=== PATIENT | female | born 1945 | race Caucasian/White ===

== ENCOUNTER 2024-06-05 12:30 | Emergency (ER) | payer OTHER, SELFPAY ==
[2024-06-05 12:35] VITALS: BP 107/76
[2024-06-05 12:48] VITALS: BP 107/76
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
[2024-06-05 13:42] LABS: Glucose - Point of Care 98 mg/dl (70-99)
[2024-06-05] MEDS: TYLENOL 1000 MG PO ×2 (14:22→19:07)
[2024-06-05 19:10] VITALS: BP 127/69
== END 2024-06-05 20:27 | disposition home or self-care (01) ==
LOC: EMR 12:30
PROVIDERS: EMERGENCY PHYSICIAN Emergency Medicine; FAMILY PHYSICIAN Internal Medicine
DX: S09.90XA Unspecified injury of head, initial encounter (principal); W22.03XA Walked into furniture, initial encounter; I48.91 Unspecified atrial fibrillation; I10 Essential (primary) hypertension; E11.9 Type 2 diabetes mellitus without complications; J44.9 Chronic obstructive pulmonary disease, unspecified; Z74.01 Bed confinement status; Z79.01 Long term (current) use of anticoagulants; Z99.81 Dependence on supplemental oxygen
CPT/HCPCS: 99284; 70450; 72125; 82962

== ENCOUNTER 2024-07-20 11:50 | Inpatient (IN) | payer MEDICARE, OTHER, SELFPAY ==
[2024-07-20] VITALS (22 sets, daily range): BP systolic 110–174; BP diastolic 49–98; PULSE 2–108
[2024-07-20 06:17] LABS: Glucose - Point of Care 179 mg/dl (70-99)
[2024-07-20 06:31] LABS: % Basophils 0.6 % (0-2); % Eosinophils 1.6 % (0-6); % Immature Granulocytes 0.4 % (0-0.5); % Lymphocytes 17.6 % (20.5-51.1); % Monocytes 7.8 % (1.7-9.3); Absolute Basophils 0.1 10^3/uL (0-0.2); Absolute Eosinophils 0.2 10^3/uL (0-0.7); Absolute Immature Granulocytes 0.1 10^3/uL (0-0.05); Absolute Monocytes 0.9 10^3/uL (0.1-0.6); Absolute Neutrophils 8.2 10^3/uL (1.4-6.5); Hematocrit 41.2 % (37.0-47.0); Hemoglobin 12.9 g/dL (12.0-16.0); Mean Corp Hgb Conc. 31.3 g/dL (33.0-37.0); Mean Corpuscular Hgb 31.2 pg (27.0-31.0); Mean Corpuscular Volume 99.8 fL (81.0-99.0); Mean Platelet Volume 9.6 fL (7.4-10.4); Nucleated Red Blood Cells % 0 %; Platelet Count 201 10^3/uL (130-400); Red Blood Cell Count 4.13 10^6/uL (4.20-5.40); Red Cell Dist. Width 13.2 % (11.5-14.5); White Blood Cell Count 11.4 10^3/uL (4.8-10.8)
--- NOTE | 2024-07-20 06:48 | ED.GENMED ---
History of Present Illness
General
Chief Complaint: Unresponsive
Source: ambulance crew and group home records
Exam Limitations: altered mental status
Time Seen by Provider: 07/20/24 06:16
Nursing documentation reviewed up to this point in time: agreed with
History of Present Illness
History of Present Illness:
78-year-old female presents emergency department from [facility] due to being unresponsive. Her last known normal is not known. EMS states the group home found her unresponsive this morning. She is on 2 L nasal cannula
chronically.
Past History
Past History
ED Past Medical History: Arrthythmia, CHF, COPD and GERD
ED Past Surgical History: Appendectomy, Gynecological (Hysterectomy) and Orthopedic (Right hip replacement)
Social History
Living: group home
Review of Systems
Review of Systems
Allergies reviewed?: Yes
Unable to obtain full review of systems at this time due to: other (Altered mental status)
Other source history: ambulance crew
All Other Systems: Not applicable
Respiratory: Reports trouble breathing
Phy Exam
Physical Exam
Physical Exam:
Physical Exam
General: Moderate respiratory distress, afebrile
Neck: supple. no meningeal signs. normal posterior pharynx
Heart: s1/s2 regular rate and irregular rhythm, no murmur. equal radial
pulses.
HEENT: Pupils equal round reactive to light, EOMI
Lungs: Moderate respiratory distress. clear bilaterally
Abdomen: normal bowel sounds. not tender. no CVAT
Neuro: arousable to painful stimuli. no focal neurological deficits cranial nerves II through XII intact
Skin: no rash
Psychiatric: Unresponsive
Extremities: no edema. no calf tenderness. negative homans. good distal pulses
Course
Orders/Labs/Results
Orders:
Orders
07/20/24 06:22
Complete Blood Count/With Diff Urgent
07/20/24 06:44
Straight cath- Treatment ONCE
07/20/24 06:45
CT Head W/o Iv Contrast Urgent
Comment:
Reason For Exam: Altered mental status
CR Chest Portable - 1 View Urgent
Comment:
Reason For Exam: Short of breath
Reason Study Needs to be Portable: Unable to Transport
07/20/24 06:46
Cardiac Monitoring- Treatment ONCE
IV Insert/Care/Rem.- Treatment PRN
07/20/24 06:50
Electrocardiogram (*1) Urgent
Reason for Study: Tachycardia
07/20/24 06:51
EKG- Treatment ONCE
07/20/24 07:12
Bipap [RESP] Urgent
Patient to use own unit?: No
Inspiratory Pressure (cm H2O): 10
Expiratory Pressure (cm H2O): 5
07/20/24 07:54
Comprehensive Metabolic Panel Urgent
NT-proBNP Urgent
Troponin I Urgent
Urinalysis Reflex To Culture Urgent
Date Specimen was Collected: 07/20/24
Time Specimen was Collected: 07:41
07/20/24 09:26
Cefepime HCl [Maxipime] 2,000 mg IV NOW STA
07/20/24 09:59
Vancomycin [Vancocin] 2,000 mg 0.9% Sodium Chloride 500 ml [Nss] 500 ml IV NOW
07/20/24 10:13
Lactic Acid Q4H
Comment: CANCEL 2nd LACTIC ACID IF 1st LACTIC ACID IS LESS THAN 2
Blood Culture Q30M
MALLORY Source: Blood/Venous
Specimen Description:
07/20/24 10:14
Blood Culture Q30M
MALLORY Source: Blood/Venous
Specimen Description:
07/20/24 10:15
COVID-19 Antigen Urgent
Source: Nasal Swab
INF RAPID [Influenza A+B Rapid Molecular] Urgent
MALLORY Source: Nasal Swab
Specimen Description:
07/20/24 10:17
Sterile Water [Sterile Water For Injection] 10 ml .ROUTE .STK-MED ONE
07/20/24 11:18
Admit/Transfer Patient As Directed
Co-Sign Provider:
Level of Care: Inpatient admission
Assign to:: IMU- Intermediate Care
Physician / Group: Joann
Diagnosis: Respiratory failure
Reason for Hospitalization: Above
Expected length of stay greater than two midnights?: Yes
ELOS- Estimated Length of Stay in days: 2
I certify the patient meets the requirements for IP care: Yes
07/20/24 11:20
PRN Pain Medication Management As Directed
May give lesser potent ordered pain med per pt: Yes
preference::
Protocol:: Medication orders for pain may be administered in a
manner that supports deferring to patient preference
when the pt is:
- Requesting an ordered lesser potent pain medication.
Least to most potent pain medications are defined
as: acetaminophen < NSAID < tramadol < opioids
(morphine, oxycodone, hydromorphone).
- Requesting a lesser dose of the same medication IF
ORDERED.
- Requesting a less intrusive route of administration
if both routes are prescribed by the provider (PO <
IV).
07/20/24 11:24
Code Status As Directed
Resuscitation Status: Full Code
07/20/24 11:53
ABG [Arterial Blood Gas] Routine
%Oxygen/Room Air: room air
Abnormal Lab Results
07/20/24 07/20/24 07/20/24
06:15 06:22 07:54
WBC 11.4 H 10^3/uL
(4.8-10.8)
RBC 4.13 L 10^6/uL
(4.20-5.40)
MCV 99.8 H fL
(81.0-99.0)
MCH 31.2 H pg
(27.0-31.0)
MCHC 31.3 L g/dL
(33.0-37.0)
Abs Immat Gran (auto) 0.1 H 10^3/uL
(0-0.05)
Absolute Neuts (auto) 8.2 H 10^3/uL
(1.4-6.5)
Absolute Monos (auto) 0.9 H 10^3/uL
(0.1-0.6)
Lymphocytes % 17.6 L %
(20.5-51.1)
Chloride 91 L mmol/L
(98-107)
Carbon Dioxide 43 H mmol/L
(22-30)
BUN 33 H mg/dl
(7-17)
Glucose 174 H mg/dl
(70-99)
Lactic Acid
Calcium 8.3 L mg/dl
(8.4-10.2)
Urine Bilirubin 1+ A
(Negative)
POC Glucose 179 H mg/dl
(70-99)
07/20/24
10:13
WBC
RBC
MCV
MCH
MCHC
Abs Immat Gran (auto)
Absolute Neuts (auto)
Absolute Monos (auto)
Lymphocytes %
Chloride
Carbon Dioxide
BUN
Glucose
Lactic Acid 0.6 L mmol/L
(0.7-2.0)
Calcium
Urine Bilirubin
POC Glucose
07/20/24 06:22
07/20/24 07:54
Vital Signs
Initial and Last Documented VS:
Initial Vital Signs
Pulse Resp
100 23
07/20/24 06:12 07/20/24 06:12
Last Documented Vital Signs
Temp Pulse Resp BP Pulse Ox
98.4 F 99 32 138/78 93
07/20/24 06:14 07/20/24 11:45 07/20/24 11:45 07/20/24 11:00 07/20/24 11:45
MDM/Problems Addressed
Differential Diagnosis Includes:
Pneumonia, COPD exacerbation, CHF
MDM/Problems Addressed:
78-year-old female with altered mental status, hypercarbia, decreased responsiveness, bilateral pneumonia. Oxygenation improved with BiPAP. Admit to hospitalist.
Chronic conditions affecting care: HTN, Arrhythmia and COPD
Acute Exacerbation and/or Progression of Chronic Illness: HTN, Arrhythmia and COPD
*Radiology
Radiology exam reviewed: radiology read reviewed (CT head no acute findings, chest x-ray shows bilateral pneumonia)
*Pulse Oximetry
Patient hypoxic: yes
*EKG
Interpreted by ED Provider?: Yes
EKG Intrepretation Date: 07/20/24
EKG Intrepretation Time: 06:52
Interpretation: abnormal
Comparison EKG: no comparison EKG present
Heart Rate: 102
Rate: tachycardiac
Rhythm: sinus tachycardia
[place]: normal axis
Interval: normal interval
QRS Pattern: normal QRS
Ischemia: no ischemia
*Fretted Instrument Repairer Interpretation
Rate: tachycardiac
Interpretation: abnormal
Heart Rate: 101
Rhythm: sinus tachycardia
*Critical Care Note
Total Time (30-74mins, 75-104mins- exclusive of procedures): 30
comment:
Critical care statement: A total of 30 minutes of critical care time was provided for this patient. This includes management of unstable vital signs, evaluation of the patient at bedside, reviewing the patient's pertinent medical records, discussion
with consultants, review of old EKGs and review of pertinent medical records. This time with separate from time utilized to perform the aforementioned documented procedures.
Data Reviewed
Further Testing Considered But Not Given:
CT chest not indicated
Patient Management
Social determinants of health affecting care: Living situation and Strong social support
Discussion with other providers: Hospitalist
Escalation/DeEscalation of care consider admission/obs:
Admit indicated
ED Attending Note
-
Portions of this chart may have been created with voice recognition software.� Occasional wrong word or��sound alike� substitutions may have occurred due to the inherent limitations of voice recognition software.
Discharge Plan
Departure
Patient Disposition: Admit
Date of Disposition: 07/20/24
Time of Disposition: 09:29
Admit to: IMU
Presentation/result/management discussed w/ accepting MD/DO: Hospitalist
Patient with high blood pressure during this ER visit?: Yes
Condition: Fair
Discharge Problem:
Bilateral pneumonia, COPD exacerbation, Acute respiratory insufficiency, Altered mental status
Interventions
Interventions:
*Risk Screen - Suicide Last Done: 07/20/24 07:42
*General Assessment Last Done: 07/20/24 07:42
*Neglect/Abuse Screening Last Done: 07/20/24 07:42
ED- Fall Risk Assessment Last Done: 07/20/24 07:42
*ED COVID-19 Vaccine History Last Done: 07/20/24 07:58
ED- Neurological Assessment Last Done: 07/20/24 06:25
--- NOTE | 2024-07-20 07:35 | EDRN ---
Patient with snoring respirations. Pulse ox on 6LNC 82-83%. notified. Patient placed on 100% NRB mask. Pulse ox 97-99%. Patient continues to respond to pain only. Patient taken to CT scan.
[2024-07-20 08:15] LABS: Urine Albumin Trace (Neg - Trace); Urine Bilirubin 1+ (Negative); Urine Character Clear (Clear); Urine Color Yellow; Urine Glucose Negative (Negative); Urine Ketone Negative (Negative); Urine Leukocyte Negative (Negative); Urine Nitrite Negative (Negative); Urine Occult Blood Negative (Negative); Urine Specific Gravity 1.025 (<1.030); Urine Urobilinogen Negative (Neg - 1+)
[2024-07-20 08:34] LABS: ALT (SGPT) 17 U/L (0-35); AST (SGOT) 25 U/L (14-36); Albumin 3.8 g/dl (3.5-5.0); Alkaline Phosphatase 85 U/L (38-126); Blood Urea Nitrogen 33 mg/dl (7-17); Calcium 8.3 mg/dl (8.4-10.2); Chloride 91 mmol/L (98-107); Glucose 174 mg/dl (70-99); Potassium 4.5 mmol/L (3.5-5.1); Sodium 144 mmol/L (135-145); Total Bilirubin 0.3 mg/dl (0.2-1.3); Total Protein 6.9 g/dl (6.3-8.2); eGFR > 60.00
[2024-07-20 08:46] LABS: NT-proBNP 383 pg/ml; Troponin I 0.018 ng/ml
[2024-07-20 08:53] LABS: Carbon Dioxide 43 mmol/L (22-30)
[2024-07-20] MEDS: MAXIPIME 2000 MG IV ×2 (10:18→18:32)
[2024-07-20] MEDS: VANCOCIN 540 MG IV (10:19)
[2024-07-20 10:39] LABS: COVID-19 Antigen Negative (Negative)
[2024-07-20 10:41] LABS: Lactic Acid 0.6 mmol/L (0.7-2.0)
--- NOTE | 2024-07-20 11:34 | HPS.HSE ---
Family Physician
-
Family Physician: Mark Mo
Chief Complaint
-
Altered mental status
History of Present Illness
Patient is a 78 years old female who brought to the emergency room from local nursing facility after what looks like gradually worsening of mentation. According to patient's daughter patient been gradually lethargic over the past 24 hours. She
became unresponsive and transferred to the ED today. Patient with prior history of COPD and chronic hypercarbic failure, not been able to tolerate BiPAP. Recent prolonged hospitalization in outside hospital complicated with hypercarbic respiratory
failure and intubation. Patient has been hospitalized 4 times over the past year. According to patient's daughter has been ongoing goals of care discussion given patient advanced COPD with hypercarbic respiratory failure and high risk for
rehospitalization and respiratory failure. Again according to patient daughter patient has been relatively stable over the past 2 months, although becomes bedbound. Family made decision on placement to nursing facility for close monitoring and
help with ADL activities. Her baseline mentation close to normal when patient is interactive.
While in the emergency room patient is lethargic, although hemodynamically stable.
Her additional workup showed no evidence for acute intracranial normalities on CT scan. Chest x-ray consistent with bibasilar consolidations and right hemidiaphragm elevation.
Her laboratory workup relevant for mild leukocytosis with left shift, normal lactic acid level, chronic compensatory alkalosis.
Medical History
Past Medical History
Past Medical History: Reports Arrhythmia (Paroxysmal A-fib), CAD, COPD (With chronic hypercarbic respiratory failure. Obstructive sleep apnea), HTN and NIDDM
Past Surgical History: Reports None
Social History
Tobacco: Non-smoker
Alcohol: None
Drug: None
Personal: Single
Living: [facility]
Family History
Family History: Not pertinent
Allergies / Home Medications
Allergies reflects when Allergies were last updated in [employer].
Home Medications with original date entered in [employer]
Allergy/Medication List:
Allergies
Allergy/AdvReac Type Severity Reaction Status Date / Time
No Known Allergies Allergy Verified 06/05/24 12:34
Home Medications
acetaminophen 325 mg tablet 650 mg PO Q6HPRN PRN mild pain 06/05/24
albuterol sulfate 90 mcg/actuation aerosol inhaler 2 puff inhalation R Q6HPRN PRN sob/wheezing 06/05/24
apixaban 5 mg tablet 5 mg PO BID 06/05/24
aspirin 81 mg chewable tablet 81 mg PO DAILY 06/05/24
atorvastatin 40 mg tablet 40 mg PO HS 06/05/24
docusate sodium 100 mg capsule 200 mg PO QPM 06/05/24
ferrous sulfate 325 mg (65 mg iron) tablet 325 mg PO NOON 06/05/24
furosemide 40 mg tablet 40 mg PO DAILY 06/05/24
insulin glargine 100 unit/mL (3 mL) subcutaneous pen 10 unit SC HS 06/05/24
ipratropium 0.5 mg-albuterol 3 mg (2.5 mg base)/3 mL nebulization soln 3 ml inhalation R Q6HPRN PRN sob/wheezing 06/05/24
metformin 500 mg tablet 500 mg PO BID 06/05/24
metoprolol tartrate 25 mg tablet 25 mg PO BID 06/05/24
pantoprazole 40 mg tablet,delayed release 40 mg PO BID 06/05/24
potassium chloride 10 mEq tablet,extended release(part/cryst) 10 meq PO DAILY 06/05/24
therapeutic multivitamin 1 tab PO DAILY 06/05/24
umeclidinium 62.5 mcg-vilanterol 25 mcg/actuation powdr for inhalation (Anoro Ellipta) 1 inh inhalation R DAILY 06/05/24
magnesium hydroxide 400 mg/5 mL oral suspension (Milk of Magnesia) 2,400 mg PO DAILYPRN PRN constipation 07/20/24
polyethylene glycol 3350 17 gram oral powder packet (Miralax) 17 g PO DAILY 07/20/24
Review of Systems
-
Unable to obtain full review of systems at this time due to: Acuity
A 12 point ROS was completed and negative except as noted: No
Physical Exam
Vital Signs
Vital Signs
Temp Pulse Resp BP Pulse Ox
98.4 F 94 32 122/54 94
07/20/24 06:14 07/20/24 08:15 07/20/24 08:15 07/20/24 08:00 07/20/24 08:15
Physical Exam
General: Well Developed, Well Nourished and No Apparent Distress
HEENT: NormoCephalic, Moist mucous membranes and Atraumatic
Respiratory: Other (Decreased breath sounds bibasilarly with poor effort); No Wheezes
Cardiac: S1/S2 and Regular Rhythm; No Murmur or Rub
GI: Soft, Non Tender, Non Distended and Normal Bowel Sounds; No Organomegaly
Rectal: Deferred by Provider
Musculoskeletal: No Clubbing, No Cyanosis and No Edema
Skin: No Rash
Neuro: Other (Lethargic, responding only to noxious stimuli)
Laboratory Results
-
07/20/24 06:22
07/20/24 07:54
Laboratory Results
Lactic Acid 0.6 mmol/L (0.7-2.0) L 07/20/24 10:13
Total Bilirubin 0.3 mg/dl (0.2-1.3) 07/20/24 07:54
AST 25 U/L (14-36) 07/20/24 07:54
ALT 17 U/L (0-35) 07/20/24 07:54
Alkaline Phosphatase 85 U/L (38-126) 07/20/24 07:54
Troponin I 0.018 ng/ml 07/20/24 07:54
Impression/Plan
-
IMPRESSION:
Toxic metabolic encephalopathy suspect secondary to hypercarbic respiratory failure.
Acute on chronic hypercarbic respiratory failure
Bilateral pneumonia suspected.
COPD exacerbation
Conditions prior to admission
Chronic hypercarbic respiratory failure
Obstructive sleep apnea intolerant to BiPAP
COPD baseline
CAD pain
Heart murmur.
Paroxysmal atrial fibrillation baseline anticoagulation with Eliquis.
IDDM
Essential hypertension.
Dyslipidemia.
Morbid obesity due to excess of calories.
Ambulatory dysfunction, bedbound group home resident.
.
Plan:
Altered mental status secondary to toxic metabolic encephalopathy suspect secondary to CO2 retention/acute hypercarbic respiratory failure.
Neurologic exam remains limited.
CT scan of the head with no acute abnormalities.
See below
Acute on chronic hypercarbic respiratory failure.
Check ABG.
Start BiPAP 10
Exam with no bronchospasm, although will initiate systemic steroids.
Continue short acting bronchodilators
Hold inhaled steroids for now
Bibasilar pneumonia suspected: Healthcare acquired pneumonia, also high risk for aspiration
Chest x-ray not easy to read due to body habitus. Noted right hemidiaphragm elevation.
Antibiotics: Vancomycin/cefepime.
Sputum culture if possible.
MRSA screen
Type 2 diabetes/IDDM.
N.p.o. given mental status.
Basal bolus protocol.
Hold standing dose of insulin. Hold metformin
Update hemoglobin A1c
CAD by history.
Dyslipidemia
Hypertension
? CHF
Exam with hard to assess volume status given obesity.
Normal procedure BNP.
Exam with loud systolic murmur.
Hold for Isomide for now.
Monitor volume status closely.
Echocardiogram
Paroxysmal atrial fibrillation.
Continue cardiac monitoring.
Off oral metoprolol given n.p.o. status
Continue anticoagulation while off Eliquis start Lovenox weight-based.
[2024-07-20 11:59] LABS: B.E. 10.4 mmol/L; O2 Saturation % 95.5 % (94-98); PO2 78 mmHg (83-108)
[2024-07-20 12:01] LABS: HCO3 44.2 mmol/L (21-28); PCO2 > 115 mmHg (32-35); pH 7.15 (7.35-7.45)
--- NOTE | 2024-07-20 12:18 | CON.PUL ---
Consultation
Consultation Request
Date/Time Consultation Requested: 07/20/20241119
Date/Time Consultation Performed: 07/20/2024 - 1204
Requesting Provider: Dr. David
Performing Provider: Dr. Gilbert
Reason for Consultation: Hypercapnic respiratory failure
Medical History
-
Chief Complaint: Found unresponsive
History of Present Illness:
78-year-old female with a past medical history of A-fib on Eliquis, chronic hypercapnic respiratory failure, DMT2, hypertension, hyperlipidemia, JEFF and history of NSTEMI who presented with unresponsiveness. Patient lives at [facility] and was
found unresponsive on morning of hospital arrival. Staff unable to provide patient's baseline apparently. She was responsive to painful stimuli and arrived here at [facility] on 6 L/min nasal cannula. Patient remains unresponsive so history
obtained from medical records. According to the patient's daughter, patient has been gradually more lethargic over the last day. She has a history of COPD and chronic hypercapnic respiratory failure and has been intolerant to BiPAP. She was at an
outside hospital recently with prolonged hospitalization and was apparently intubated at that hospital. She has been hospitalized 4 times over the last year. According to the patient's daughter, the patient's been stable over the last 2 months
although she is bedbound. Initial vitals showed she was afebrile to 98.4 �F, pulse rate 100, breathing at 23 breaths/min, BP 118/49 and saturating 93% on 6 L/min. Initial labs showed mild leukocytosis to 11.4, Hb 12.9, initial pCO2 >115, pH 7.15,
serum bicarbonate level 43, lactate 0.6, proBNP 383, troponin 0.018, urinalysis negative for signs of UTI and COVID-19 antigen negative. Patient got cefepime and vancomycin in the ER after CXR showed suspected bibasilar pneumonia. She was placed
onto BiPAP and now being admitted to the IMU with pulmonary consulted for additional management/recommendations.
When I saw the patient she was resting in bed on BiPAP 15/5 blood with 15 L/min. She remained minimally responsive although she was responsive to painful stimuli but still not awakening or opening eyes or communicating. She is currently breathing
at 26 breaths/min with VTe ranging between 240�305mL. Currently, heart rate 108, BP 136/63 and saturating 96%.
PMHx: History of NSTEMI, paroxysmal A-fib on Eliquis, history of chronic hypercapnic respiratory failure, DM type II, hypertension, mixed hyperlipidemia, gait abnormality, JEFF, history of hemorrhoids
PSHx: Unobtainable
Past Medical History
Past Medical History: Other (Above as per HPI)
Past Surgical History: Other (Above as per HPI)
Social History
Tobacco: Non-smoker
Alcohol: None
Drug: None
Personal: Single
Living: Long Term
Family History
Family History: Unable to Obtain
Allergies / Home Medications
Allergies
Allergy/AdvReac Type Severity Reaction Status Date / Time
No Known Allergies Allergy Verified 06/05/24 12:34
Home Medications
�Medication �Instructions �Recorded �Confirmed �Last Taken �Type
acetaminophen 325 mg tablet 650 mg PO Q6HPRN PRN mild pain 06/05/24 07/20/24 Unknown History
albuterol sulfate 90 mcg/actuation 2 puff inhalation R Q6HPRN PRN 06/05/24 07/20/24 Unknown History
aerosol inhaler sob/wheezing
apixaban 5 mg tablet 5 mg PO BID 06/05/24 07/20/24 Unknown History
aspirin 81 mg chewable tablet 81 mg PO DAILY 06/05/24 07/20/24 Unknown History
atorvastatin 40 mg tablet 40 mg PO HS 06/05/24 07/20/24 Unknown History
docusate sodium 100 mg capsule 200 mg PO QPM 06/05/24 07/20/24 Unknown History
ferrous sulfate 325 mg (65 mg 325 mg PO NOON 06/05/24 07/20/24 Unknown History
iron) tablet
furosemide 40 mg tablet 40 mg PO DAILY 06/05/24 07/20/24 Unknown History
insulin glargine 100 unit/mL (3 10 unit SC HS 06/05/24 07/20/24 Unknown History
mL) subcutaneous pen
ipratropium 0.5 mg-albuterol 3 mg 3 ml inhalation R Q6HPRN PRN 06/05/24 07/20/24 Unknown History
(2.5 mg base)/3 mL nebulization sob/wheezing
soln
metformin 500 mg tablet 500 mg PO BID 06/05/24 07/20/24 Unknown History
metoprolol tartrate 25 mg tablet 25 mg PO BID 06/05/24 07/20/24 Unknown History
pantoprazole 40 mg tablet,delayed 40 mg PO BID 06/05/24 07/20/24 Unknown History
release
potassium chloride 10 mEq 10 meq PO DAILY 06/05/24 07/20/24 Unknown History
tablet,extended release(part/cryst)
therapeutic multivitamin 1 tab PO DAILY 06/05/24 07/20/24 Unknown History
umeclidinium 62.5 mcg-vilanterol 1 inh inhalation R DAILY 06/05/24 07/20/24 Unknown History
25 mcg/actuation powdr for
inhalation (Anoro Ellipta)
magnesium hydroxide 400 mg/5 mL 2,400 mg PO DAILYPRN PRN 07/20/24 07/20/24 Unknown History
oral suspension (Milk of Magnesia) constipation
polyethylene glycol 3350 17 gram 17 g PO DAILY 07/20/24 07/20/24 Unknown History
oral powder packet (Miralax)
Review of Systems
-
Unable to Obtain full review of systems at this time due to: Acuity
Vitals / Labs / Diagnostic Testing
Vital Signs
Temp Pulse Resp BP Pulse Ox
98.4 F 99 32 138/78 93
07/20/24 06:14 07/20/24 11:45 07/20/24 11:45 07/20/24 11:00 07/20/24 11:45
Lab Data
07/20/24 06:22
07/20/24 07:54
Laboratory Results
07/20/24 07/20/24
11:53 13:51
pH 7.15 L* 7.28 L
pCO2 > 115 H* 92 H*
pO2 78 L 77 L
HCO3 44.2 H* 43.2 H*
O2 Delivery Level
Microbiology
07/20/24 10:15 Nasal Swab Influenza Types A & B ([facility]) - Final
Negative for Influenza A & B, NAAT
Negative results must be combined with clinical observations
and patient history.
Nucleic Acid Amplification test (NAAT)performed on the
[employer] platform.
Diagnostic Testing:
Physical Exam
-
HEENT: Normocephalic, Anicteric and Other (Full face mask BiPAP atatched)
Cardiovascular: S1/S2, Peripheral Edema (negative) and Other (Tachycardia)
Respiratory: Wheeze (negative), Rales ([place] faintly during inspiration), Rhonchi (negative) and Other (Diminished breath sounds bilaterally)
GI: Soft, Non Distended, Non Tender and Normal Bowel Sounds
Neurology: Tremors (Positive in bilateral upper extremities) and Other (Responsive to painful stimuli but not awakening and communicating)
Skin: Warm and Dry
General: Respiratory Distress (negative), Chills (negative) and Sweats (negative)
Assessment
-
Assessment: 78-year-old female with a past medical history of A-fib on Eliquis, chronic hypercapnic respiratory failure, DMT2, hypertension, hyperlipidemia, JEFF and history of NSTEMI who presented with unresponsiveness. Patient lives at [facility] and was found unresponsive on morning of hospital arrival. Staff unable to provide patient's baseline apparently. She was responsive to painful stimuli and arrived here at [facility] on 6 L/min nasal cannula. Patient remains unresponsive so
history obtained from medical records. According to the patient's daughter, patient has been gradually more lethargic over the last day. She has a history of COPD and chronic hypercapnic respiratory failure and has been intolerant to BiPAP. She
was at an outside hospital recently with prolonged hospitalization and was apparently intubated at that hospital. She has been hospitalized 4 times over the last year. According to the patient's daughter, the patient's been stable over the last 2
months although she is bedbound. Initial vitals showed she was afebrile to 98.4 �F, pulse rate 100, breathing at 23 breaths/min, BP 118/49 and saturating 93% on 6 L/min. Initial labs showed mild leukocytosis to 11.4, Hb 12.9, initial pCO2 >115, pH
7.15, serum bicarbonate level 43, lactate 0.6, proBNP 383, troponin 0.018, urinalysis negative for signs of UTI and COVID-19 antigen negative. Patient got cefepime and vancomycin in the ER after CXR showed suspected bibasilar pneumonia. She was
placed onto BiPAP and now being admitted to the IMU with pulmonary consulted for additional management/recommendations.
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
Impression:
#Acute on chronic respiratory failure with hypercapnia
#CO2 narcosis
#Right hemidiaphragm elevation
#Bibasilar opacities seen on CXR concerning for pneumonia, suspected aspiration especially given acute hypercapnic respiratory failure
#Mediastinal shift (left to right) due to right lung volume loss in the setting of right lower lobe atelectasis due to hypoventilation with right lower lobe pneumonia/aspiration
#Reported history of COPD with acute exacerbation
#Acute respiratory failure with hypoxia now on continuous BiPAP bled with supplemental oxygen
#Paroxysmal A-fib on Eliquis
#DM type II
#Hypertension
#Morbid obesity due to excess of calories
#Ambulatory dysfunction (bedbound long-term resident)
Plan:
- Continue with BiPAP and trend blood gas to ensure the pH + pCO2 continue to improve
- If there is worsening hypercapnia with continued altered mental status then she will need to be intubated for airway protection
- Of note, CT head showed no acute intracranial hemorrhage or transcortical infarct
- Given her baseline physical deconditioning with bedbound status, would recommend against endotracheal intubation as it would only make her weaker and it would be a very difficult extubation
- Recommend goals of care discussion between the family
- Patient has evidence of metabolic alkalosis however given the pCO2 is >115 with low pH, unable to give Diamox at this time. As we correct her respiratory acidosis, she will become alkalotic show would recommend slowly normalizing her pCO2 to
avoid severe rebound metabolic alkalemia
- Continue with aspiration precautions, keeping HOB >30-45�
- Keep strict NPO for now; once she awakens then can trial off BiPAP and continue O2, but she will need to be on BiPAP with sleep going forward
- She received antibiotics in the ER with vancomycin/cefepime due to suspected bibasilar pneumonia � would empirically continue with antibiotics for now and complete a 5 to 7-day course
- Follow-up blood cultures x 2 (collected today)
- If possible and patient able to produce a decent sample, then check a sputum culture
- Check procalcitonin as well for trending power
- Continue systemic steroids to cover AECOPD given her bibasilar pneumonia with acute hypoxia
- Start DuoNebs QID with prn nebulized bronchodilators - not currently bronchospastic
- Maintain SpO2 88-95% with supplemental O2 and wean as tolerated
- Her CXR shows right lung volume loss with left to right mediastinal shift due to atelectasis to recheck CXR tomorrow and if this worsens despite optimization of pulmonary toilet then she may need bronchoscopy
- Given her altered mental status and severe hypercapnia, she currently remains too high risk for any procedure without placing her onto a ventilator
- Her BNP is slightly elevated at 383 and upon my review of the CXR there is mild cephalization of of blood vessels and suspected interstitial edema - I will treat with 1 dose of Lasix and reassess volume status daily
- Of note she does takes Lasix 40 mg daily at home
- Check echo
- trend sCr, sNa, I/O and UOP
- Once she awakens, then would recommend to use incentive spirometer
- Replete electrolytes with K>4, Mg>2
- Maintain euglycemia with goal BG >100 and <180
- DVT ppx: Therapeutic Lovenox for now and once she awakens and BiPAP mask is off, then can resume Eliquis at that time
High risk situation: Admit to the IMU. Currently remains full code and remains low threshold to intubate for airway protection. Continue to closely monitor.
Pulmonary service will continue to follow along.
Data:
CXR 07/20/2024:
1. Moderate to severe elevation of the right hemidiaphragm.
2. Bilateral lower lobe airspace opacities. Diagnostic possibilities are (1) a combination of subsegmental atelectasis and scarring or (2) pneumonia (if there are signs/symptoms of pulmonary infection).
3. Moderate enlargement of the cardiomediastinal silhouette.
4. Mild left to right mediastinal shift consistent with right lung volume loss.
Total time spent today was 76 minutes for this encounter. Time includes reviewing laboratory test/imaging results, reviewing pertinent medical records, obtaining and reviewing medical history, performing an appropriate exam, ordering medications,
tests and procedures. Time also includes documentation of this encounter, coordinating patient care and communicating with other healthcare professionals. Total time does not include separately billed tests performed on this date of service.
[2024-07-20 14:03] LABS: B.E. 12.3 mmol/L; O2 Saturation % 96.4 % (94-98); PO2 77 mmHg (83-108); pH 7.28 (7.35-7.45)
[2024-07-20 14:06] LABS: HCO3 43.2 mmol/L (21-28); PCO2 92 mmHg (32-35)
[2024-07-20] MEDS: LASIX 40 MG IV (14:37)
[2024-07-20] MEDS: FLUSH (NSS) 1 FLUSH IV (14:37)
[2024-07-20] MEDS: DUONEB 3 ML INH ×2 (14:50→21:01)
[2024-07-20 15:11] LABS: Procalcitonin < 0.05 ng/ml (0.0-0.25)
--- NOTE | 2024-07-20 15:33 | PHA.VAN.IN ---
Assessment
- Assessment
Renal Function: Unknown baseline (BUN slightly elevated from normal limits)
Concomitant Antimicrobials: cefepime
Plan
- Plan
Initial / Loading Dose: 2000mg - 07/20 10:19
Maintenance Regimen: dosing by level - give additional 500mg x1 today
Monitoring: random 07/21 0600
MRSA Screen: Ordered per protocol
Patient with borderline renal function and elevated BUN with unknown baseline
Will give additional 500mg to help maintain levels then dose by level to ensure level will be non-toxic
Pharmacokinetics Vancomycin I
- -
Patient Age: 78
Patient Sex: Female
Vancomycin Day #: 1
Indication: Pulmonary/Respiratory
Requesting Provider: Dr. David
Pertinent Antimicrobial Allergies:
NKDA
Height / Weight:
Actual Weight 90.4 kg
Pertinent Past Medical History: BMI ~36.5, DM 2, Bedbound
- Vital Signs / Lab Results
Temp Pulse Resp BP Pulse Ox
98.6 F 101 27 115/58 95
07/20/24 12:15 07/20/24 15:15 07/20/24 15:15 07/20/24 15:00 07/20/24 15:15
Lab Results - Hematology
07/20/24
06:22
WBC 11.4 H
Lab Results - Chemistry
07/20/24 07/20/24 07/20/24
06:22 06:49 07:54
BUN Cancelled Cancelled 33 H
Creatinine Cancelled Cancelled 0.7
Estimated Creat Clear Cancelled Cancelled
Albumin Cancelled Cancelled 3.8
07/20/24 07/20/24
10: 13:30
Lactic Acid 0.6 L Cancelled
Lab Results - Urine
07/20/24
07:54
Urine Nitrite (Reflex) Negative
Leukocyte Esterase Rfl Negative
Microbiology Results
07/20/24 10:15 Influenza Types A & B ([facility]) - Final
Nasal Swab Negative for Influenza A & B, NAAT
Negative results must be combined with clinical observations
and patient history.
Nucleic Acid Amplification test (NAAT)performed on the
[employer] platform.
--- NOTE | 2024-07-20 17:51 | EDRN ---
Patient taken to room 3355 on stretcher on monitor on BiPap with ED RN and respiratory therapy.
[2024-07-20] MEDS: DECADRON 4 MG IV ×2 (18:31→23:10)
[2024-07-20] MEDS: NOVOLOG FLEXPEN-LOW RESISTANCE SC ×2 (18:31→19:06)
[2024-07-20] MEDS: STERILE WATER FOR INJECTION 10 ML IV (18:32)
[2024-07-20 18:44] LABS: Glucose - Point of Care 141 mg/dl (70-99)
[2024-07-20 19:17] LABS: Venous Blood Gas B.E. 11.6 mmol/L (-4 to +4); Venous Blood Gas HCO3 44.2 mmol/L (22-27); Venous Blood Gas O2 Sat % 90.5 %; Venous Blood Gas pH 7.22 (7.32-7.43); Venous Blood Gas pO2 59 mmHg (30-50)
[2024-07-20 19:19] LABS: Venous Blood Gas O2 Therapy Air 15L/min
[2024-07-20 19:20] LABS: Venous Blood Gas pCO2 108 mmHg (35-48)
[2024-07-20] MEDS: VANCOCIN HCL 500 MG 100 IV (20:15)
[2024-07-20] MEDS: LOVENOX 90 MG SC (20:16)
[2024-07-21] VITALS (13 sets, daily range): BP systolic 97–127; BP diastolic 53–100; PULSE 2–101; BMI 35.3; BMI 34.9
[2024-07-21 01:57] LABS: Glucose - Point of Care 202 mg/dl (70-99)
[2024-07-21] MEDS: STERILE WATER FOR INJECTION 10 ML IV ×3 (02:16→17:15)
[2024-07-21] MEDS: MAXIPIME 2000 MG IV ×3 (02:16→17:15)
--- NOTE | 2024-07-21 02:35 | PTCARENOTE ---
No acute events overnight. Remained unresponsive on bipap. Update given to daughter on plan of care.
[2024-07-21 04:10] LABS: Vancomycin Random 17.9 ug/ml
[2024-07-21] MEDS: DUONEB 3 ML INH (07:47)
[2024-07-21] MEDS: DECADRON 4 MG IV (08:44)
[2024-07-21] MEDS: LOVENOX 90 MG SC (08:44)
[2024-07-21] MEDS: DESENEX/MITRAZOL/ZEASORB 1 APPLIC TOPICAL ×2 (08:46→20:44)
--- NOTE | 2024-07-21 08:51 | PTCARENOTE ---
Assumed care of pt at walking rounds. Pt initially on BIPAP, Resp therapy here and administered treatment and weaned pt to 3L nc with pulse ox at 94%, lungs coarse with rhonci. No cough at this time. Pt is awake angry and unsure why she is here at
hospital. She is upset that she is at hospital and saying she is 'ready to go', and with conversation she is tells me that she is ready to pass away. She tells me that her daughter is making decisions for her. Pt sinus tach on telemetry at 104 with
a burst to 140 and broke rate to return to low 100s. She is asking for water, but pt is NPO. Pt provided with oral swabs and mouth care. Pt thankful for this.
--- NOTE | 2024-07-21 09:10 | W.PN.PUL3 ---
Today's Communication / Plan
-
BiPAP with sleep using nasal mask
Trend blood gas to ensure pH + pCO2 are stable
Diamox x 1 today
Continue systemic steroids and wean as tolerated
Change DuoNebs to Spiriva + Striverdi
Broad-spectrum antibiotics with short course of 3-5 days given negative procal
Patient now DNR/DNI
Pulmonary service will continue to follow along
Assessment
-
Assessment: 78-year-old female with a past medical history of A-fib on Eliquis, chronic hypercapnic respiratory failure, DMT2, hypertension, hyperlipidemia, JEFF and history of NSTEMI who presented with unresponsiveness. Patient lives at [place]
[facility] and was found unresponsive on morning of hospital arrival. Staff unable to provide patient's baseline apparently. She was responsive to painful stimuli and arrived here at [place] on 6 L/min nasal cannula. Patient remains unresponsive so
history obtained from medical records. According to the patient's daughter, patient has been gradually more lethargic over the last day. She has a history of COPD and chronic hypercapnic respiratory failure and has been intolerant to BiPAP. She
was at an outside hospital recently with prolonged hospitalization and was apparently intubated at that hospital. She has been hospitalized 4 times over the last year. According to the patient's daughter, the patient's been stable over the last 2
months although she is bedbound. Initial vitals showed she was afebrile to 98.4 �F, pulse rate 100, breathing at 23 breaths/min, BP 118/49 and saturating 93% on 6 L/min. Initial labs showed mild leukocytosis to 11.4, Hb 12.9, initial pCO2 >115, pH
7.15, serum bicarbonate level 43, lactate 0.6, proBNP 383, troponin 0.018, urinalysis negative for signs of UTI and COVID-19 antigen negative. Patient got cefepime and vancomycin in the ER after CXR showed suspected bibasilar pneumonia. She was
placed onto BiPAP and now being admitted to the IMU with pulmonary consulted for additional management/recommendations.
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
Impression:
#Acute on chronic respiratory failure with hypercapnia
#CO2 narcosis --> now resolved s/p BiPAP
#Right hemidiaphragm elevation
#Bibasilar opacities seen on CXR concerning for pneumonia, suspected aspiration especially given acute hypercapnic respiratory failure
#Mediastinal shift (left to right) due to right lung volume loss in the setting of right lower lobe atelectasis due to hypoventilation with right lower lobe pneumonia/aspiration
#Reported history of COPD with acute exacerbation
#Acute respiratory failure with hypoxia now on continuous BiPAP bled with supplemental oxygen
#Paroxysmal A-fib on Eliquis
#DM type II
#Hypertension
#Morbid obesity due to excess of calories
#Ambulatory dysfunction (bedbound [facility] resident)
Plan:
-Patient has now markedly improved and is back to her baseline mental status after being on continuous BiPAP for >12-16-hours
- Going forward, it is recommended to continue with BiPAP with sleep and prn during the day
- The patient is giving lots of resistance to using BiPAP as she does not like the full facemask; she is amenable to using a nasal mask so this will be attempted tonight
- If she continues to refuse the BiPAP mask, then this will be discontinued and she will be at increased risk for worsening hypercapnia with CO2 narcosis again
- Trend blood gas to ensure the pH + pCO2 continue to improve
- She is now DNR/DNI
- Of note, CT head showed no acute intracranial hemorrhage or transcortical infarct
- Patient has evidence of metabolic + respiratory alkalosis --> give a dose of Diamox today and continue to trend blood gas as stated above
- Continue with aspiration precautions, keeping HOB >30-45�
- Ok for diet now that she is awake
- She received antibiotics in the ER with vancomycin/cefepime due to suspected bibasilar pneumonia � would empirically continue with antibiotics for now and complete a 5 to 7-day course
- Currently on cefepime s/p IV vanco x2 doses on 07/20/2024 given negative MRSA swab
- Follow-up blood cultures x 2 (collected 07/20/2024)
- If possible and patient able to produce a decent sample, then check a sputum culture
- Procalcitonin is negative, hence would give short course of ABx (3-5 days max)
- Continue systemic steroids to cover AECOPD given her bibasilar pneumonia with acute hypoxia - currently on decadron 2mg IV q8hr
- DuoNebs changed to Spiriva + Striverdi as she is on Anoro at home
- Maintain SpO2 88-95% with supplemental O2 and wean as tolerated
- Her CXR shows right lung volume loss with left to right mediastinal shift due to atelectasis, and is slightly improved on CXR this AM
- If this worsens despite optimization of pulmonary toilet then she may need bronchoscopy
- Her BNP is slightly elevated at 383 and upon my review of the CXR there is mild cephalization of of blood vessels and suspected interstitial edema - I gave 1 dose of Lasix
- Reassess volume status daily
- Of note she does takes Lasix 40 mg daily at home
- Echo checked today shows hyperdynamic LV systolic function with EF 70-75%, with moderate concentric LVH, and mild�moderate
- trend sCr, sNa, I/O and UOP
- Encourage incentive spirometer
- Replete electrolytes with K>4, Mg>2
- Maintain euglycemia with goal BG >100 and <180
- DVT ppx: Resume eliquis now that she is awake
Pulmonary service will continue to briefly follow along.
Data:
CXR 07/20/2024:
1. Moderate to severe elevation of the right hemidiaphragm.
2. Bilateral lower lobe airspace opacities. Diagnostic possibilities are (1) a combination of subsegmental atelectasis and scarring or (2) pneumonia (if there are signs/symptoms of pulmonary infection).
3. Moderate enlargement of the cardiomediastinal silhouette.
4. Mild left to right mediastinal shift consistent with right lung volume loss.
Total time spent today was 37 minutes for this encounter. Time includes reviewing laboratory test/imaging results, reviewing pertinent medical records, obtaining and reviewing medical history, performing an appropriate exam, ordering medications,
tests and procedures. Time also includes documentation of this encounter, coordinating patient care and communicating with other healthcare professionals. Total time does not include separately billed tests performed on this date of service.
Subjective Data
-
Date of Service:
Date of Service: July 21, 2024
Chief Complaint: Pulmonary Follow Up
Subjective:
Patient seen and evaluated today at bedside. She is much more awake today and blood gas this morning shows respiratory alkalosis with pCO2 55. She is currently saturating 94% on 3 L/min, heart rate 74 and BP 108/70. Family discussion held and
patient is now DNR/DNI. She says she does not want the BiPAP due to the facemask which she makes her feel claustrophobic. She is amenable to using a nasal mask. Currently denies chest pain, MCCALL, nausea, fevers or chills.
Review of Systems
General: Other (Negative unless mentioned above)
Objective Data
Data Reviewed
Vital Signs / I&O / Oxygen:
Vital Signs
Temp Pulse Resp BP Pulse Ox
98.5 F 97 20 124/77 94
07/21/24 07:45 07/21/24 07:49 07/21/24 07:49 07/21/24 06:00 07/21/24 07:57
Intake and Output
07/20/24 07/21/24 07/22/24
06:59 06:59 06:59
Intake Total 0 / 0
Balance 0 / 0
SaO2 94
Nasal Cannula flow liters per 3
minute
Physical Exam
General: Respiratory Distress (negative), Comfortable, Chills (negative) and Sweats (negative)
HEENT: Normocephalic and Anicteric
Cardiovascular: S1-S2, Murmur (JAVAD heard across precordium) and Peripheral Edema (negative)
Respiratory: Clear, Wheeze (negative), Crackles (negative), Rhonchi (negative), Accessory Resp Muscle Use (negative) and Stridor (negative)
GI: Soft, Distended (Abdominal obesity), Non Tender and Normal Bowel Sounds
Neurology: AO x 3 and Tremors (negative)
Skin: Warm, Dry, Cyanosis (negative) and Jaundice (negative)
Labs/Micro/Reports
Lab Data
07/20/24 06:22
Laboratory Results
07/20/24 07/20/24 07/21/24
11:53 13:51 09:25
pH 7.15 L* 7.28 L 7.52 H
pCO2 > 115 H* 92 H* 55 H
pO2 78 L 77 L 87
HCO3 44.2 H* 43.2 H* 44.9 H*
O2 Delivery Level
Microbiology
07/20/24 10:13 Blood/Venous Blood Culture - Preliminary
No Growth in 24 hours- Final report to follow
07/20/24 10:14 Blood/Venous Blood Culture - Preliminary
No Growth in 24 hours- Final report to follow
07/20/24 20:53 Nose Nasal Screen MRSA (PCR) - Final
MRSA not detected - performed by PCR methodology.
07/20/24 10:15 Nasal Swab Influenza Types A & B ([facility]VIDSON) - Final
Negative for Influenza A & B, NAAT
Negative results must be combined with clinical observations
and patient history.
Nucleic Acid Amplification test (NAAT)performed on the
[employer] platform.
[2024-07-21 09:39] LABS: Glycohemoglobin (HgbA1c) 6.9 % (4.0-5.6)
[2024-07-21 09:59] LABS: B.E. 19.2 mmol/L; O2 Saturation % 98.5 % (94-98); PCO2 55 mmHg (32-35); PO2 87 mmHg (83-108); pH 7.52 (7.35-7.45)
[2024-07-21 10:01] LABS: HCO3 44.9 mmol/L (21-28)
--- NOTE | 2024-07-21 10:06 | PTCARENOTE ---
This RN spoke with pt's daughter on phone and updated her that her Mother is awake, plan of care to wean oxygen and monitor ABGS
--- NOTE | 2024-07-21 10:07 | PTCARENOTE ---
Melchor on phone call with daughter, this RN also explained her Mother's wishes to be a DNR
[2024-07-21 10:39] LABS: Glucose - Point of Care 164 mg/dl (70-99)
[2024-07-21] MEDS: NOVOLOG FLEXPEN-LOW RESISTANCE 1 UNITS SC ×2 (10:56→18:38)
[2024-07-21] MEDS: FEOSOL 325 MG PO (11:11)
[2024-07-21] MEDS: DIAMOX 250 MG PO (11:12)
[2024-07-21] MEDS: GLUCOPHAGE 500 MG PO ×2 (11:12→17:15)
[2024-07-21] MEDS: MIRALAX PO ×2 (11:12→11:27)
[2024-07-21] MEDS: LASIX 40 MG PO (11:13)
[2024-07-21] MEDS: PROTONIX 40 MG PO ×2 (11:13→20:44)
[2024-07-21] MEDS: LOW STRENGTH ASPIRIN 81 MG PO (11:13)
[2024-07-21] MEDS: LOPRESSOR 25 MG PO ×2 (11:13→20:44)
[2024-07-21] MEDS: STRIVERDI RESPIMAT INH (12:34)
[2024-07-21] MEDS: SPIRIVA RESPIMAT 2.5 MCG INH (12:34)
--- NOTE | 2024-07-21 13:57 | PTCARENOTE ---
Daughter, Lilly here and visiting at bedside. She reports that she did speak with Dr. David and reviewed plan of care. She has not further questions at this time.
--- NOTE | 2024-07-21 14:07 | CM ---
CM following re: discharge planning.
Reviewed pt's chart, met with pt and pt's daughter Lilly at bedside.
Pt is an 78 year old female, admitted with primary dx of Toxic metabolic encephalopathy suspect secondary to hypercarbic respiratory failure.
Pt rapports she has been living at [facility] since May last year, bed bound. Pt is on 15 day Medicaid bed hold. Pt expressed her desire to return back to [facility] for a LTC. Pt's daughter stated she is the only daughter who
lives locally.
[facility] nursing report: [phone]
Discharge instructions fax: [phone]
D/C plan: return back to [facility] for a LTC.
CM will follow with discharge plan updates as hospitalization progresses
[2024-07-21] MEDS: NOVOLOG FLEXPEN-LOW RESISTANCE 3 UNITS SC (14:26)
[2024-07-21 14:35] LABS: Glucose - Point of Care 293 mg/dl (70-99)
--- NOTE | 2024-07-21 15:27 | W.PN.HOSP.TC ---
Today's Communication/Plan
-
See plan
Assessment / Plan
Assessment / Plan
Impression:
Toxic metabolic encephalopathy secondary to hypercapnic respiratory failure.
Acute on chronic hypercarbic respiratory failure secondary to BiPAP noncompliance
Conditions prior to admission
Chronic hypercarbic respiratory failure
Obstructive sleep apnea intolerant to BiPAP
COPD baseline
CAD pain
Heart murmur.
Paroxysmal atrial fibrillation baseline anticoagulation with Eliquis.
IDDM
Essential hypertension.
Dyslipidemia.
Morbid obesity due to excess of calories.
Ambulatory dysfunction, bedbound alf resident.
.
Plan
Toxic metabolic encephalopathy secondary to acute hypercarbic respiratory failure.
Neurologic status improved and back to baseline with introduction of BiPAP
Serial ABG showed resolution of severe respiratory acidosis.
Patient is awake alert and oriented today appropriately responding all questions.
According the patient statement she has not been able to tolerate BiPAP.
She was clear that she would not like to continue current treatment and would not pursue any aggressive measures of resuscitation including CPR, invasive ventilation.
According to patient wishes CODE STATUS will be changed to DNR.
Follow-up chest x-ray with no evidence of parenchymal disease.
Consolidate antibiotics to cefepime alone discontinued vancomycin and continue for another 24 to 48 hours.
Quick steroid taper.
Continue nebulizers.
Type 2 diabetes.
Hemoglobin A1c 6.9
Advance diet.
Reintroduce insulin/metformin
CAD by history
Hypertension
Echocardiogram with preserved LVEF and moderate aortic stenosis.
Volume status relatively compensated.
Noted normal pro CHF BNP.
Resume preadmission regimen including furosemide, metoprolol
DNR
Patient's daughter updated over the phone.
Anticipated Discharge: 24 - 48 hours
Subjective/Interval History
-
Date of Service: July 21, 2024
Objective Data
-
Labs:
Laboratory Results
07/21/24 07/21/24
03:34 09:25
HCO3 44.9 H*
BUN Pending
Creatinine Pending
Vital Signs:
Vital Signs
Temp Pulse Resp BP Pulse Ox
98.2 F 100 20 118/70 92
07/21/24 11:55 07/21/24 11:13 07/21/24 07:49 07/21/24 11:13 07/21/24 14:38
I&O
07/20/24 07/21/24 07/22/24
06:59 06:59 06:59
Intake Total 0 / 0 840 / 840
Balance 0 / 0 840 / 840
Physical Exam
-
General: Well Developed and No Apparent Distress
HEENT: Normocephalic, Atraumatic and Moist Mucous Membranes
Respiratory: Clear to Auscultation
Cardiac: Regular Rhythm and S1/S2; Negative Murmur, Rub or Gallop
GI: Soft, Nontender, Nondistended and Normal Bowel Sounds; Negative Organomegaly
Rectal: Deferred by Provider
Musculoskeletal: No Clubbing, No Cyanosis and No Edema
Skin: Negative Rash
Neuro: Awake, Alert, Oriented, AO x 3 and Nonfocal/Grossly Intact
[2024-07-21 15:43] LABS: Blood Urea Nitrogen 38 mg/dl (7-17); Estimated Creatinine Clearance 66 ml/min
[2024-07-21] MEDS: DECADRON 2 MG IV ×2 (17:14→23:08)
[2024-07-21] MEDS: COLACE 200 MG PO (17:15)
[2024-07-21 18:39] LABS: Glucose - Point of Care 171 mg/dl (70-99)
--- NOTE | 2024-07-21 18:45 | PTCARENOTE ---
Patient's behavior at times is her yelling out for staff and argumentative. She is oriented x 3 but has confused conversation at times. Pt is on IV Decadron and daughter reports she is sensitive and has known behavior outbursts when on Steroids. Pt
has tolerated 3 L NC and no desaturations.
[2024-07-21] MEDS: ELIQUIS 5 MG PO (20:44)
[2024-07-21] MEDS: LIPITOR 40 MG PO (20:44)
[2024-07-21] MEDS: LANTUS 0.1 UNITS SC (20:44)
[2024-07-21] MEDS: TYLENOL 650 MG PO (20:48)
[2024-07-21 20:54] LABS: Glucose - Point of Care 221 mg/dl (70-99)
--- NOTE | 2024-07-21 22:55 | PTCARENOTE ---
Pt transferred from IMU to room 324 via stretcher. Pt moved to bed with staff assistance, oriented to room, call borrego within reach, will continue to monitor.
[2024-07-22] MEDS: STERILE WATER FOR INJECTION 10 ML IV ×3 (01:01→17:11)
[2024-07-22] MEDS: MAXIPIME 2000 MG IV ×3 (01:01→17:10)
[2024-07-22 03:30] VITALS: BP 110/54
[2024-07-22 06:06] LABS: Venous Blood Gas B.E. 12.1 mmol/L (-4 to +4); Venous Blood Gas HCO3 41.1 mmol/L (22-27); Venous Blood Gas O2 Sat % 99.1 %; Venous Blood Gas pH 7.33 (7.32-7.43); Venous Blood Gas pO2 128 mmHg (30-50)
[2024-07-22 06:14] LABS: Venous Blood Gas pCO2 78 mmHg (35-48)
[2024-07-22 06:20] VITALS: BMI 34.9
--- NOTE | 2024-07-22 06:34 | W.PN.UPDATE ---
Update Note
Progress Note Update
vbg this morning reveal pco2 78 with normal ph
PT refused bipap overnight due to 'intolerance'..
[2024-07-22 08:03] VITALS: BP 106/62
[2024-07-22 08:14] LABS: Glucose - Point of Care 209 mg/dl (70-99)
[2024-07-22] MEDS: LOW STRENGTH ASPIRIN 81 MG PO (08:14)
[2024-07-22] MEDS: GLUCOPHAGE 500 MG PO ×2 (08:14→16:22)
[2024-07-22] MEDS: PROTONIX 40 MG PO ×2 (08:14→19:36)
[2024-07-22] MEDS: MIRALAX 17 GRAMS PO (08:14)
[2024-07-22] MEDS: LASIX 40 MG PO (08:14)
[2024-07-22] MEDS: ELIQUIS 5 MG PO ×2 (08:14→19:37)
[2024-07-22] MEDS: KCL 10 MEQ PO (08:14)
[2024-07-22] MEDS: THERAGRAN 1 TABLET PO (08:14)
[2024-07-22] MEDS: LOPRESSOR 25 MG PO ×2 (08:16→19:41)
[2024-07-22] MEDS: DESENEX/MITRAZOL/ZEASORB 1 APPLIC TOPICAL (08:16)
[2024-07-22] MEDS: DECADRON 2 MG IV ×2 (08:16→15:44)
[2024-07-22] MEDS: NOVOLOG FLEXPEN-LOW RESISTANCE 2 UNITS SC (08:17)
[2024-07-22] MEDS: SPIRIVA RESPIMAT 2.5 MCG 2 PUFF INH (08:25)
[2024-07-22] MEDS: STRIVERDI RESPIMAT 2 PUFF INH (08:25)
--- NOTE | 2024-07-22 09:20 | W.PN.PUL3 ---
Today's Communication / Plan
-
Refusing BiPAP; continue to trend blood gas to ensure pH + pCO2 are stable
Continue systemic steroids and wean as tolerated --> tomorrow would wean down to prednisone 40mg daily and reduce by 10mg every 4th day until off
Changed DuoNebs to Spiriva + Striverdi
Broad-spectrum antibiotics with short course of 3-5 days given negative procal
Patient now DNR/DNI
Check CXR tomorrow to assess for atelectasis of right lung
Pulmonary service will continue to briefly follow along
Assessment
-
Assessment: 78-year-old female with a past medical history of A-fib on Eliquis, chronic hypercapnic respiratory failure, DMT2, hypertension, hyperlipidemia, JEFF and history of NSTEMI who presented with unresponsiveness. Patient lives at [place]
[facility] and was found unresponsive on morning of hospital arrival. Staff unable to provide patient's baseline apparently. She was responsive to painful stimuli and arrived here at [place] on 6 L/min nasal cannula. Patient remains unresponsive so
history obtained from medical records. According to the patient's daughter, patient has been gradually more lethargic over the last day. She has a history of COPD and chronic hypercapnic respiratory failure and has been intolerant to BiPAP. She
was at an outside hospital recently with prolonged hospitalization and was apparently intubated at that hospital. She has been hospitalized 4 times over the last year. According to the patient's daughter, the patient's been stable over the last 2
months although she is bedbound. Initial vitals showed she was afebrile to 98.4 �F, pulse rate 100, breathing at 23 breaths/min, BP 118/49 and saturating 93% on 6 L/min. Initial labs showed mild leukocytosis to 11.4, Hb 12.9, initial pCO2 >115, pH
7.15, serum bicarbonate level 43, lactate 0.6, proBNP 383, troponin 0.018, urinalysis negative for signs of UTI and COVID-19 antigen negative. Patient got cefepime and vancomycin in the ER after CXR showed suspected bibasilar pneumonia. She was
placed onto BiPAP and now being admitted to the IMU with pulmonary consulted for additional management/recommendations.
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
Impression:
#Acute on chronic respiratory failure with hypercapnia
#CO2 narcosis --> now resolved s/p BiPAP
#Right hemidiaphragm elevation
#Bibasilar opacities seen on CXR concerning for pneumonia, suspected aspiration especially given acute hypercapnic respiratory failure
#Mediastinal shift (left to right) due to right lung volume loss in the setting of right lower lobe atelectasis due to hypoventilation with right lower lobe pneumonia/aspiration
#Reported history of COPD with acute exacerbation
#Acute respiratory failure with hypoxia now on continuous BiPAP bled with supplemental oxygen
#Paroxysmal A-fib on Eliquis
#DM type II
#Hypertension
#Morbid obesity due to excess of calories
#Ambulatory dysfunction (bedbound shelter resident)
Plan:
- Patient has markedly improved and is back to her baseline mental status after being on continuous BiPAP on admission for >12-16-hours
- Going forward, it is recommended to continue with BiPAP with sleep and prn during the day, however she is refusing, even with a nasal mask
- She is at increased risk for worsening hypercapnia with CO2 narcosis again, and thus would be at high risk for aspiration, hypoxia and
- Trend blood gas to ensure the pH + pCO2 continue to improve
- She is now DNR/DNI
- Of note, CT head showed no acute intracranial hemorrhage or transcortical infarct
- Patient has evidence of metabolic + respiratory alkalosis --> gave a dose of Diamox on 07/21/2024 --> continue to hold given her worsening respiratory acidosis today due to BiPAP non-compliance
- Continue to trend blood gas
- Continue with aspiration precautions, keeping HOB >30-45�
- Ok for diet now that she is awake
- She received antibiotics in the ER with vancomycin/cefepime due to suspected bibasilar pneumonia � would empirically continue with antibiotics for now and complete a 5 to 7-day course
- Currently on cefepime s/p IV vanco x2 doses on 07/20/2024 given negative MRSA swab
- Follow-up blood cultures x 2 (collected 07/20/2024)
- If possible and patient able to produce a decent sample, then check a sputum culture
- Procalcitonin is negative, hence would give short course of ABx (3-5 days max)
- Continue systemic steroids to cover AECOPD given her bibasilar pneumonia with acute hypoxia - currently on decadron 2mg IV q12hr from 2mg IV q12hr --> tomorrow would wean down to prednisone 40mg daily and reduce by 10mg every 4th day until off
- DuoNebs changed to Spiriva + Striverdi as she is on Anoro at home
- Maintain SpO2 88-95% with supplemental O2 and wean as tolerated
- Her CXR shows right lung volume loss with left to right mediastinal shift due to atelectasis, and is slightly improved on CXR from yesterday
- Recheck CXR tomorrow to assure this is stable --> if this worsens despite optimization of pulmonary toilet then she may need bronchoscopy
- Her BNP is slightly elevated at 383 and upon my review of her initial CXR there was mild cephalization of of blood vessels and suspected interstitial edema - I gave 1 dose of Lasix
- Reassess volume status daily
- Of note she does takes Lasix 40 mg daily at home
- Echo checked on 07/20/2024 showed hyperdynamic LV systolic function with EF 70-75%, with moderate concentric LVH, and mild�moderate
- trend sCr, sNa, I/O and UOP
- Pain control
- Encourage incentive spirometer
- Replete electrolytes with K>4, Mg>2
- Maintain euglycemia with goal BG >100 and <180
- DVT ppx: Eliquis
Pulmonary service will continue to briefly follow along.
Data:
CXR 07/20/2024:
1. Moderate to severe elevation of the right hemidiaphragm.
2. Bilateral lower lobe airspace opacities. Diagnostic possibilities are (1) a combination of subsegmental atelectasis and scarring or (2) pneumonia (if there are signs/symptoms of pulmonary infection).
3. Moderate enlargement of the cardiomediastinal silhouette.
4. Mild left to right mediastinal shift consistent with right lung volume loss.
Total time spent today was 36 minutes for this encounter. Time includes reviewing laboratory test/imaging results, reviewing pertinent medical records, obtaining and reviewing medical history, performing an appropriate exam, ordering medications,
tests and procedures. Time also includes documentation of this encounter, coordinating patient care and communicating with other healthcare professionals. Total time does not include separately billed tests performed on this date of service.
Subjective Data
-
Date of Service:
Date of Service: July 22, 2024
Chief Complaint: Pulmonary Follow Up
Subjective:
Patient was seen and evaluated today at bedside. Blood gas today shows worsening of her pCO2 with expected drop in pH from 7.52-7.33. Refused BiPAP overnight saying that she cannot tolerated. She is still not interested in using BiPAP at night
and she understands that she could if she develops CO2 narcosis again and aspirates, and she says that 'it's fine.' She is currently on 2 L/min nasal cannula and breathing comfortably. Denies chest pain, MCCALL, nausea, fevers or chills.
Review of Systems
General: Other (Negative unless mentioned above)
Objective Data
Data Reviewed
Vital Signs / I&O / Oxygen:
Vital Signs
Temp Pulse Resp BP Pulse Ox
98.1 F 73 16 115/53 93
07/22/24 11:17 07/22/24 11:17 07/22/24 11:17 07/22/24 11:17 07/22/24 11:17
Intake and Output
07/21/24 07/22/24 07/23/24
06:59 06:59 06:59
Intake Total 0 / 0 840 / 840
Output Total 700 / 700
Balance 0 / 0 140 / 140
SaO2 93
Nasal Cannula flow liters per 2
minute
Physical Exam
General: Respiratory Distress (negative), Comfortable, Chills (negative) and Sweats (negative)
HEENT: Normocephalic and Anicteric
Cardiovascular: S1-S2, Murmur (JAVAD heard across precordium) and Peripheral Edema (Trace lower extremity edema bilaterally)
Respiratory: Clear, Wheeze (negative), Crackles (negative), Rhonchi (negative), Accessory Resp Muscle Use (negative) and Stridor (negative)
GI: Soft, Distended (Abdominal obesity), Non Tender and Normal Bowel Sounds
Neurology: AO x 3 and Tremors (negative)
Skin: Warm, Dry, Cyanosis (negative) and Jaundice (negative)
Labs/Micro/Reports
Lab Data
07/20/24 06:22
07/21/24 03:34
Microbiology
07/20/24 10:14 Blood/Venous Blood Culture - Preliminary
No Growth in 48 hours- Final report to follow
07/20/24 10:13 Blood/Venous Blood Culture - Preliminary
No Growth in 48 hours- Final report to follow
07/20/24 20:53 Nose Nasal Screen MRSA (PCR) - Final
MRSA not detected - performed by PCR methodology.
07/20/24 10:15 Nasal Swab Influenza Types A & B (DAVIDSON) - Final
Negative for Influenza A & B, NAAT
Negative results must be combined with clinical observations
and patient history.
Nucleic Acid Amplification test (NAAT)performed on the
[employer] platform.
--- NOTE | 2024-07-22 09:58 | PN.CDI ---
CDI
- -
CDI:
Physician Documentation Request
Admit Date: 07/20/24 11:50
Dear Doctor Joann,
Please review the following and provide your response in the progress notes.
Clinical Indicators:
The diagnosis of pneumonia was documented on 07/20 H&P but is not consistently noted in subsequent documentation.
- 07/20 H&P 'Bibasilar pneumonia suspected: Healthcare acquired pneumonia, also high risk for aspiration'
- 07/21 Pulmonary 'Bibasilar opacities seen on CXR concerning for pneumonia, suspected aspiration especially given acute hypercapnic respiratory failure'
- IV antibiotics Cefepime, Vancomycin given
Please clarify the following:
____ - Pneumonia was present on admission and is now resolved.
____ - Pneumonia was present on admission and is still being monitored, evaluated or treated
____ - Pneumonia was ruled out
____ - Other
Use of terms such as suspected, likely, concern for, or probable (associated with a specific diagnosis that is being evaluated, monitored, or treated as if it exists) are acceptable and can be coded in the inpatient setting, when documented at the
time of discharge.
Thank you,
Esa Goncalves RN
CDI Specialist
Please use your independent medical judgment in providing your response.
[2024-07-22 11:17] VITALS: BP 115/53
[2024-07-22 11:38] LABS: Glucose - Point of Care 259 mg/dl (70-99)
[2024-07-22] MEDS: FEOSOL 325 MG PO (11:53)
[2024-07-22] MEDS: NOVOLOG FLEXPEN-LOW RESISTANCE 3 UNITS SC (11:54)
[2024-07-22 15:06] LABS: Blood Urea Nitrogen 45 mg/dl (7-17); Calcium 8.6 mg/dl (8.4-10.2); Chloride 88 mmol/L (98-107); Estimated Creatinine Clearance 53 ml/min; Glucose 307 mg/dl (70-99); Potassium 4.3 mmol/L (3.5-5.1); Sodium 134 mmol/L (135-145); eGFR > 60.00
[2024-07-22 15:15] LABS: Carbon Dioxide 37 mmol/L (22-30)
[2024-07-22 15:27] VITALS: BP 104/90
[2024-07-22] MEDS: NOVOLOG FLEXPEN-LOW RESISTANCE 4 UNITS SC (16:23)
[2024-07-22 16:24] LABS: Glucose - Point of Care 313 mg/dl (70-99)
[2024-07-22] MEDS: COLACE 200 MG PO (17:07)
--- NOTE | 2024-07-22 17:12 | W.PN.HOSP.TC ---
Today's Communication/Plan
-
Encouraged BiPAP, although patient declining.
Wean off steroids
Continue to biotics for another 24 hours
Monitor mental status, monitor for recurrent hypercarbia.
Assessment / Plan
Assessment / Plan
Impression:
Toxic metabolic encephalopathy secondary to hypercapnic respiratory failure.
Acute on chronic hypercarbic respiratory failure secondary to BiPAP noncompliance
Conditions prior to admission
Chronic hypercarbic respiratory failure
Obstructive sleep apnea intolerant to BiPAP
COPD baseline
CAD pain
Heart murmur.
Paroxysmal atrial fibrillation baseline anticoagulation with Eliquis.
IDDM
Essential hypertension.
Dyslipidemia.
Morbid obesity due to excess of calories.
Ambulatory dysfunction, bedbound shelter resident.
.
Plan
Toxic metabolic encephalopathy secondary to acute hypercarbic respiratory failure.
Neurologic status improved and back to baseline with introduction of BiPAP
Serial ABG showed resolution of severe respiratory acidosis.
Patient is awake alert and oriented today appropriately responding all questions.
According the patient statement she has not been able to tolerate BiPAP.
She was clear that she would not like to continue current treatment and would not pursue any aggressive measures of resuscitation including CPR, invasive ventilation.
According to patient wishes CODE STATUS will be changed to DNR.
Follow-up chest x-ray with no evidence of parenchymal disease.
Consolidate antibiotics to cefepime alone discontinued vancomycin and continue for another 24 to 48 hours.
Quick steroid taper.
Continue nebulizers.
Type 2 diabetes.
Hemoglobin A1c 6.9
Advance diet.
Reintroduce insulin/metformin
CAD by history
Hypertension
Echocardiogram with preserved LVEF and moderate aortic stenosis.
Volume status relatively compensated.
Noted normal pro CHF BNP.
Resume preadmission regimen including furosemide, metoprolol
DNR
Patient's daughter updated over the phone.
Anticipated Discharge: 24 - 48 hours
Subjective/Interval History
-
Date of Service: July 22, 2024
Objective Data
-
Labs:
Laboratory Results
07/22/24
14:17
Sodium 134 L D
Potassium 4.3
Chloride 88 L
Carbon Dioxide 37 H
BUN 45 H
Creatinine 0.9
Glucose 307 H
Calcium 8.6
Vital Signs:
Vital Signs
Temp Pulse Resp BP Pulse Ox
98.1 F 70 17 104/90 93
07/22/24 15:27 07/22/24 15:27 07/22/24 15:27 07/22/24 15:27 07/22/24 15:27
I&O
07/21/24 07/22/24 07/23/24
06:59 06:59 06:59
Intake Total 0 / 0 840 / 840
Output Total 700 / 700
Balance 0 / 0 140 / 140
Physical Exam
-
General: Well Developed and No Apparent Distress
HEENT: Normocephalic, Atraumatic and Moist Mucous Membranes
Respiratory: Clear to Auscultation
Cardiac: Regular Rhythm and S1/S2; Negative Murmur, Rub or Gallop
GI: Soft, Nontender, Nondistended and Normal Bowel Sounds; Negative Organomegaly
Rectal: Deferred by Provider
Musculoskeletal: No Clubbing, No Cyanosis and No Edema
Skin: Negative Rash
Neuro: Awake, Alert, Oriented, AO x 3 and Nonfocal/Grossly Intact
[2024-07-22 19:00] VITALS: BP 127/55
[2024-07-22] MEDS: DESENEX/MITRAZOL/ZEASORB TOPICAL ×2 (19:37→19:46)
[2024-07-22] MEDS: TYLENOL 650 MG PO (19:49)
[2024-07-22 21:21] LABS: Glucose - Point of Care 225 mg/dl (70-99)
[2024-07-22] MEDS: LANTUS 0.1 UNITS SC (21:23)
[2024-07-22] MEDS: LIPITOR 40 MG PO (21:24)
[2024-07-22 23:00] VITALS: BP 114/59
[2024-07-23] MEDS: MAXIPIME 2000 MG IV ×3 (01:37→17:03)
[2024-07-23] MEDS: STERILE WATER FOR INJECTION 10 ML IV ×3 (01:37→17:03)
[2024-07-23 03:00] VITALS: BP 129/61
[2024-07-23] MEDS: DECADRON 2 MG IV (03:40)
[2024-07-23 06:00] VITALS: BMI 34.4
[2024-07-23 06:08] LABS: Venous Blood Gas B.E. 13.2 mmol/L (-4 to +4); Venous Blood Gas HCO3 41.8 mmol/L (22-27); Venous Blood Gas O2 Sat % 95.3 %; Venous Blood Gas pH 7.36 (7.32-7.43); Venous Blood Gas pO2 68 mmHg (30-50)
[2024-07-23 06:13] LABS: Venous Blood Gas pCO2 74 mmHg (35-48)
[2024-07-23 06:24] LABS: % Basophils 0.2 % (0-2); % Immature Granulocytes 0.2 % (0-0.5); % Lymphocytes 15.2 % (20.5-51.1); % Monocytes 6.4 % (1.7-9.3); Absolute Lymphocytes 1.5 10^3/uL (1.2-3.4); Absolute Monocytes 0.6 10^3/uL (0.1-0.6); Absolute Neutrophils 7.4 10^3/uL (1.4-6.5); Hematocrit 36.9 % (37.0-47.0); Mean Corp Hgb Conc. 32.5 g/dL (33.0-37.0); Mean Corpuscular Hgb 31.2 pg (27.0-31.0); Mean Corpuscular Volume 95.8 fL (81.0-99.0); Nucleated Red Blood Cells % 0 %; Platelet Count 186 10^3/uL (130-400); Red Blood Cell Count 3.85 10^6/uL (4.20-5.40); White Blood Cell Count 9.5 10^3/uL (4.8-10.8)
[2024-07-23 07:03] LABS: Blood Urea Nitrogen 41 mg/dl (7-17); Calcium 8.4 mg/dl (8.4-10.2); Chloride 92 mmol/L (98-107); Estimated Creatinine Clearance 67 ml/min; Glucose 192 mg/dl (70-99); Potassium 4.4 mmol/L (3.5-5.1); Sodium 137 mmol/L (135-145); eGFR > 60.00
[2024-07-23 07:14] LABS: Carbon Dioxide 36 mmol/L (22-30)
[2024-07-23] MEDS: KCL 10 MEQ PO (07:47)
[2024-07-23] MEDS: LOPRESSOR 25 MG PO (07:47)
[2024-07-23] MEDS: ELIQUIS 5 MG PO (07:47)
[2024-07-23] MEDS: LASIX 40 MG PO (07:47)
[2024-07-23] MEDS: THERAGRAN 1 TABLET PO (07:47)
[2024-07-23] MEDS: GLUCOPHAGE 500 MG PO ×2 (07:47→16:03)
[2024-07-23] MEDS: DESENEX/MITRAZOL/ZEASORB TOPICAL (07:47)
[2024-07-23] MEDS: PROTONIX 40 MG PO (07:47)
[2024-07-23] MEDS: LOW STRENGTH ASPIRIN 81 MG PO (07:47)
[2024-07-23 07:48] LABS: Glucose - Point of Care 234 mg/dl (70-99)
[2024-07-23] MEDS: MIRALAX PO (07:48)
[2024-07-23] MEDS: NOVOLOG FLEXPEN-LOW RESISTANCE 2 UNITS SC ×2 (07:56→11:52)
[2024-07-23 07:59] VITALS: BP 127/66
[2024-07-23] MEDS: STRIVERDI RESPIMAT 2 PUFF INH (08:10)
[2024-07-23] MEDS: SPIRIVA RESPIMAT 2.5 MCG 2 PUFF INH (08:11)
--- NOTE | 2024-07-23 08:55 | W.PN.PUL3 ---
Today's Communication / Plan
-
Refusing BiPAP; continue to occasionally trend blood gas (stable today and is actually improving)
Continue systemic steroids and wean as tolerated --> today will wean down to prednisone 40mg daily and reduce by 10mg every 4th day until off
Changed DuoNebs to Spiriva + Striverdi - resume anoro on discharge
Broad-spectrum antibiotics with short course of 3-5 days given negative procal
Patient now DNR/DNI
CXR this morning shows stable findings compared to prior CXR on 07/21/2024, no need for bronchoscopy at this time
No additional recommendation at this time. Given her reported history of COPD, I will arrange for outpatient office follow-up with full PFTs and symptom management. Pulmonary service will now sign off. Please reconsult if there are any additional
questions/concerns, or if patient's respiratory status deteriorates.
Assessment
-
Assessment: 78-year-old female with a past medical history of A-fib on Eliquis, chronic hypercapnic respiratory failure, DMT2, hypertension, hyperlipidemia, JEFF and history of NSTEMI who presented with unresponsiveness. Patient lives at [facility] and was found unresponsive on morning of hospital arrival. Staff unable to provide patient's baseline apparently. She was responsive to painful stimuli and arrived here at [facility] on 6 L/min nasal cannula. Patient remains unresponsive so
history obtained from medical records. According to the patient's daughter, patient has been gradually more lethargic over the last day. She has a history of COPD and chronic hypercapnic respiratory failure and has been intolerant to BiPAP. She
was at an outside hospital recently with prolonged hospitalization and was apparently intubated at that hospital. She has been hospitalized 4 times over the last year. According to the patient's daughter, the patient's been stable over the last 2
months although she is bedbound. Initial vitals showed she was afebrile to 98.4 �F, pulse rate 100, breathing at 23 breaths/min, BP 118/49 and saturating 93% on 6 L/min. Initial labs showed mild leukocytosis to 11.4, Hb 12.9, initial pCO2 >115, pH
7.15, serum bicarbonate level 43, lactate 0.6, proBNP 383, troponin 0.018, urinalysis negative for signs of UTI and COVID-19 antigen negative. Patient got cefepime and vancomycin in the ER after CXR showed suspected bibasilar pneumonia. She was
placed onto BiPAP and now being admitted to the IMU with pulmonary consulted for additional management/recommendations.
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
Impression:
#Acute on chronic respiratory failure with hypercapnia - CO2 now only acutely mildly elevated
#CO2 narcosis --> now resolved s/p BiPAP
#Right hemidiaphragm elevation
#Bibasilar opacities seen on CXR concerning for pneumonia, suspected aspiration especially given acute hypercapnic respiratory failure
#Mediastinal shift (left to right) due to right lung volume loss in the setting of right lower lobe atelectasis due to hypoventilation with right lower lobe pneumonia/aspiration
#Reported history of COPD with acute exacerbation
#Acute respiratory failure with hypoxia s/p continuous BiPAP bled with supplemental oxygen, now off BiPAP and refusing to use with sleep
#Paroxysmal A-fib on Eliquis
#DM type II
#Hypertension
#Morbid obesity due to excess of calories
#Ambulatory dysfunction (bedbound intermediate resident)
Plan:
- Patient has markedly improved and is back to her baseline mental status after being on continuous BiPAP on admission for >12-16-hours
- Going forward, it is recommended to continue with BiPAP with sleep and prn during the day, however she is refusing, even with a nasal mask
- She is at increased risk for worsening hypercapnia with CO2 narcosis again, and thus would be at high risk for aspiration, hypoxia and
- Blood gas today shows improving pCO2 + pH currently at 7.36/74. Continue to occasionally trend blood gas in the morning
- She is now DNR/DNI
- Of note, CT head showed no acute intracranial hemorrhage or transcortical infarct
- Patient has evidence of metabolic + respiratory alkalosis --> gave a dose of Diamox on 07/21/2024 --> continue to hold given her worsening respiratory acidosis today due to BiPAP non-compliance
- Continue to trend blood gas
- Continue with aspiration precautions, keeping HOB >30-45�
- Ok for diet now that she is awake
- Continue antibiotics with cefepime (started 07/20/2024) s/p vancomycin (given on 07/20/2024 - now MRSA screen negative) due to suspected bibasilar pneumonia � would empirically continue with antibiotics for now and complete a 5 to 7-day course
- Currently on cefepime s/p IV vanco x2 doses on 07/20/2024 given negative MRSA swab
- Follow-up blood cultures x 2 (collected 07/20/2024)
- If possible and patient able to produce a decent sample, then check a sputum culture
- Procalcitonin is negative, hence would give short course of ABx (3-5 days max)
- Continue systemic steroids to cover AECOPD given her bibasilar pneumonia with acute hypoxia - currently on decadron 2mg IV q12hr from 2mg IV q12hr --> today would wean down to prednisone 40mg daily and reduce by 10mg every 4th day until off
- DuoNebs changed to Spiriva + Striverdi as she is on Anoro at home
- Maintain SpO2 88-95% with supplemental O2 and wean as tolerated --> check walking pulse oximetry prior to discharge
- Her CXR shows right lung volume loss with left to right mediastinal shift due to atelectasis, and is slightly improved on CXR from 07/21/2024
- CXR was checked this morning and shows similar findings compared to prior CXR on 07/21/2024. No need for bronchoscopy at this time.
- Her BNP is slightly elevated at 383 and upon my review of her initial CXR there was mild cephalization of of blood vessels and suspected interstitial edema - I gave 1 dose of Lasix earlier on admission
- Reassess volume status daily
- Of note she does takes Lasix 40 mg daily at home - resumed on 07/21/2024
- Echo checked on 07/20/2024 showed hyperdynamic LV systolic function with EF 70-75%, with moderate concentric LVH, and mild�moderate
- trend sCr, sNa, I/O and UOP
- Pain control
- Encourage incentive spirometer q1hr while awake
- Replete electrolytes with K>4, Mg>2
- Maintain euglycemia with goal BG >100 and <180
- DVT ppx: Eliquis
No additional recommendation at this time. Given her reported history of COPD, I will arrange for outpatient office follow-up with full PFTs and symptom management. Pulmonary service will now sign off. Thank you for allowing us to be involved in
the care of this patient. Please reconsult if there are any additional questions/concerns, or if patient's respiratory status deteriorates.
Data:
CXR 07/20/2024:
1. Moderate to severe elevation of the right hemidiaphragm.
2. Bilateral lower lobe airspace opacities. Diagnostic possibilities are (1) a combination of subsegmental atelectasis and scarring or (2) pneumonia (if there are signs/symptoms of pulmonary infection).
3. Moderate enlargement of the cardiomediastinal silhouette.
4. Mild left to right mediastinal shift consistent with right lung volume loss.
Total time spent today was 26 minutes for this encounter. Time includes reviewing laboratory test/imaging results, reviewing pertinent medical records, obtaining and reviewing medical history, performing an appropriate exam, ordering medications,
tests and procedures. Time also includes documentation of this encounter, coordinating patient care and communicating with other healthcare professionals. Total time does not include separately billed tests performed on this date of service.
Subjective Data
-
Date of Service:
Date of Service: July 23, 2024
Chief Complaint: Pulmonary Follow Up
Subjective:
Patient seen and evaluated today at bedside. Currently on 2 L/min nasal cannula, and tired today. No acute events reported overnight. Blood gas morning shows improving pH + pCO2. Patient still refusing nocturnal BiPAP with sleep. Denies chest
pain, MCCALL, abdominal pain, nausea, fevers or chills.
Review of Systems
General: Other (Negative unless mentioned above)
Objective Data
Data Reviewed
Vital Signs / I&O / Oxygen:
Vital Signs
Temp Pulse Resp BP Pulse Ox
97.8 F 62 16 127/66 96
07/23/24 07:59 07/23/24 08:15 07/23/24 08:15 07/23/24 07:59 07/23/24 08:15
Intake and Output
07/22/24 07/23/24 07/24/24
06:59 06:59 06:59
Intake Total 840 / 840 1200 / 1200
Output Total 700 / 700
Balance 140 / 140 1200 / 1200
SaO2 96
Nasal Cannula flow liters per 2
minute
Physical Exam
General: Respiratory Distress (negative), Comfortable, Chills (negative) and Sweats (negative)
HEENT: Normocephalic and Anicteric
Cardiovascular: S1-S2, Murmur (JAVAD heard across precordium) and Peripheral Edema (Trace lower extremity edema bilaterally)
Respiratory: Clear, Wheeze (negative), Crackles (negative), Rhonchi (negative), Accessory Resp Muscle Use (negative) and Stridor (negative)
GI: Soft, Distended (Abdominal obesity), Non Tender and Normal Bowel Sounds
Neurology: AO x 3 and Tremors (negative)
Skin: Warm, Dry, Cyanosis (negative) and Jaundice (negative)
Labs/Micro/Reports
Lab Data
07/23/24 05:53
07/23/24 05:53
Microbiology
07/20/24 10:14 Blood/Venous Blood Culture - Preliminary
No Growth in 48 hours- Final report to follow
07/20/24 10:13 Blood/Venous Blood Culture - Preliminary
No Growth in 48 hours- Final report to follow
07/20/24 20:53 Nose Nasal Screen MRSA (PCR) - Final
MRSA not detected - performed by PCR methodology.
07/20/24 10:15 Nasal Swab Influenza Types A & B ([facility]) - Final
Negative for Influenza A & B, NAAT
Negative results must be combined with clinical observations
and patient history.
Nucleic Acid Amplification test (NAAT)performed on the
[employer] platform.
[2024-07-23 11:11] LABS: Glucose - Point of Care 248 mg/dl (70-99)
[2024-07-23] MEDS: FEOSOL 325 MG PO (11:48)
[2024-07-23 12:24] VITALS: BP 121/58
--- NOTE | 2024-07-23 13:52 | CM ---
Patient weaning off of steroids per attending note, still on ABX. Will go back to [facility]TC after discharge.
Plan: Case management will continue to follow and assist with discharge planning, [facility] When stable.
[2024-07-23 15:40] VITALS: BP 99/57
--- NOTE | 2024-07-23 15:45 | W.DS.TRANS ---
DC Summary - [facility]er Stocker
-
Discharge Instructions:
Discharge Diagnosis/Procedures Impression:
Toxic metabolic encephalopathy secondary to
hypercapnic respiratory failure.
Acute on chronic hypercarbic respiratory failure
secondary to BiPAP noncompliance
Conditions prior to admission
Chronic hypercarbic respiratory failure
Obstructive sleep apnea intolerant to BiPAP
COPD baseline
CAD pain
Heart murmur.
Paroxysmal atrial fibrillation baseline
anticoagulation with Eliquis.
IDDM
Essential hypertension.
Dyslipidemia.
Morbid obesity due to excess of calories.
Ambulatory dysfunction, bedbound halfway
resident.
Diet Diabetic, Carb Controlled
Instructions:
Stand-Alone Forms:
Changes to Home Medications: No
Discharge Medications:
DC Medications w/original date entered in [facility]
acetaminophen 325 mg tablet 650 mg PO Q6HPRN PRN mild pain 06/05/24
albuterol sulfate 90 mcg/actuation aerosol inhaler 2 puff inhalation R Q6HPRN PRN sob/wheezing 06/05/24
apixaban 5 mg tablet 5 mg PO BID Blood Clot Prevention/Tx 06/05/24
aspirin 81 mg chewable tablet 81 mg PO DAILY Blood Clot Prevention/Tx 06/05/24
atorvastatin 40 mg tablet 40 mg PO HS High Cholesterol 06/05/24
docusate sodium 100 mg capsule 200 mg PO QPM Constipation 06/05/24
ferrous sulfate 325 mg (65 mg iron) tablet 325 mg PO NOON Supplement 06/05/24
furosemide 40 mg tablet 40 mg PO DAILY Fluid Retention/Swelling 06/05/24
insulin glargine 100 unit/mL (3 mL) subcutaneous pen 10 unit SC HS Diabetes 06/05/24
ipratropium 0.5 mg-albuterol 3 mg (2.5 mg base)/3 mL nebulization soln 3 ml inhalation R Q6HPRN PRN sob/wheezing 06/05/24
metformin 500 mg tablet 500 mg PO BID Diabetes 06/05/24
metoprolol tartrate 25 mg tablet 25 mg PO BID Blood Pressure 06/05/24
pantoprazole 40 mg tablet,delayed release 40 mg PO BID Gastrointestinal Issue 06/05/24
potassium chloride 10 mEq tablet,extended release(part/cryst) 10 meq PO DAILY Electrolyte Repletion 06/05/24
therapeutic multivitamin 1 tab PO DAILY Supplement 06/05/24
umeclidinium 62.5 mcg-vilanterol 25 mcg/actuation powdr for inhalation (Anoro Ellipta) 1 inh inhalation R DAILY Lung/Breathing Issues 06/05/24
magnesium hydroxide 400 mg/5 mL oral suspension (Milk of Magnesia) 2,400 mg PO DAILYPRN PRN constipation 07/20/24
polyethylene glycol 3350 17 gram oral powder packet (Miralax) 17 g PO DAILY Constipation 07/20/24
Home Medication Changes
Pending Results: No
--- NOTE | 2024-07-23 15:46 | CM ---
Spoke with attending who stated that patient is medically stable for discharge. Placed a call to Admissions at [facility] and spoke with Alta who stated that # for report is, fax [phone]. Called patient's daughter who is
agreeable with discharge. Reviewed IMM. Now on chart.
Sent new referral to [facility].
Medical necessity and transfer sheet completed for [facility] [facility] community placement worker.
Plan: Case management will continue to follow and assist with discharge planning. Back to [facility].
[2024-07-23 16:42] LABS: Glucose - Point of Care 130 mg/dl (70-99)
[2024-07-23] MEDS: NOVOLOG FLEXPEN-LOW RESISTANCE SC (16:42)
[2024-07-23] MEDS: COLACE 200 MG PO (17:03)
[2024-07-23 19:00] VITALS: BP 128/60
== END 2024-07-23 20:10 | DRG 189 ==
LOC: 3 WEST ACU 11:50
PROVIDERS: ADMITTING PHYSICIAN Internal Medicine; EMERGENCY PHYSICIAN Emergency Medicine; FAMILY PHYSICIAN Internal Medicine; OTHER PHYSICIAN Internal Medicine Critical Care Medicine
DX: J96.22 Acute and chronic respiratory failure with hypercapnia (principal); G92.8 Other toxic encephalopathy; J44.1 Chronic obstructive pulmonary disease with (acute) exacerbation; J44.0 Chronic obstructive pulmonary disease with (acute) lower respiratory infection; J98.11 Atelectasis; J96.21 Acute and chronic respiratory failure with hypoxia; Z11.52 Encounter for screening for COVID-19; I48.0 Paroxysmal atrial fibrillation; E11.9 Type 2 diabetes mellitus without complications; Z79.4 Long term (current) use of insulin; I50.9 Heart failure, unspecified; I11.0 Hypertensive heart disease with heart failure; E66.01 Morbid (severe) obesity due to excess calories; Z68.34 Body mass index [BMI] 34.0-34.9, adult; Z66 Do not resuscitate; Z79.01 Long term (current) use of anticoagulants; I25.10 Atherosclerotic heart disease of native coronary artery without angina pectoris; E78.2 Mixed hyperlipidemia; G47.33 Obstructive sleep apnea (adult) (pediatric); I08.0 Rheumatic disorders of both mitral and aortic valves; Z74.01 Bed confinement status; Z91.199 Patient's noncompliance with other medical treatment and regimen due to unspecified reason
CPT/HCPCS: 36600; 51701; 70450; 71045; 80048; 80053; 80202; 81003; 82565; 82805; 82962; 83036; 83605; 83880; 84145; 84484; 84520; 85025; 87040; 87502; 87641; 87811; 93005; 93306; 94640; 94660; 96365; 96366; 96375; 99291

== ENCOUNTER 2024-10-14 13:50 | Inpatient (IN) | payer MEDICARE, OTHER, SELFPAY ==
[2024-10-14] VITALS (19 sets, daily range): BP systolic 90–142; BP diastolic 24–114; PULSE 2–108
--- NOTE | 2024-10-14 09:24 | ED.GENMED ---
History of Present Illness
General
Chief Complaint: Breathing Problem
Time Seen by Provider: 10/14/24 09:13
History of Present Illness
History of Present Illness:
Patient presents to the emergency department with altered mental status. She has a history of COPD and chronic respiratory insufficiency [facility] nasal cannula oxygen [facility]. She was found this morning with altered mental status, more
lethargic and decreased responsiveness. Patient does not provide any history but is arousable to mild noxious stimuli.
Past History
Past History
ED Past Medical History: Arrthythmia, CHF, COPD and GERD
ED Past Surgical History: Appendectomy, Gynecological (Hysterectomy) and Orthopedic (Right hip replacement)
Social History
Living: penitentiary
Phy Exam
Physical Exam
Physical Exam:
GENERAL APPEARANCE: sleeping, arousable to mild noxious stimuli, yelling
EYES eyes closed, lids/conjunctiva normal, PERRLA
EARS/NOSE/THROAT Mucous membranes moist, uvula midline without oral pharyngeal erythema, exudate or swelling
HEAD/NECK normocephalic atraumatic, neck is supple.
RESPIRATORY respiratory effort normal, no wheezing
CARDIAC Regular rate and rhythm, no edema.
ABDOMINAL Soft, ND/NT.
MUSCLES/EXTREMITIES No abnormal range of motion, no swelling.
SKIN Warm, pink and dry. No rashes
NEUROLOGICAL somnolent, moves all extremities, yelling in coherent words
Scores
Heart Failure Risk
Heart Failure Risk Score: Not Applicable
Course
Orders/Labs/Results
Orders:
Orders
10/14/24 09:21
CR Chest Portable - 1 View Urgent
Comment:
Reason For Exam: altered mental status
Reason Study Needs to be Portable: Patient Unstable
10/14/24 09:24
Bipap [RESP] Urgent
Patient to use own unit?: No
Inspiratory Pressure (cm H2O): 15
Expiratory Pressure (cm H2O): 5
10/14/24 09:26
CT Head W/o Iv Contrast Urgent
Comment:
Reason For Exam: altered mental status
Ipratropium/Albuterol Sulfate [Duoneb] 3 ml INH R NOW STA
10/14/24 09:37
COVID-19 Antigen Urgent
Source: Nasal Swab
Influenza A+B Rapid Molecular Urgent
MALLORY Source: Nasal Swab
Specimen Description:
10/14/24 09:49
Blood Culture Urgent
MALLORY Source: Blood/Venous
Specimen Description:
10/14/24 10:19
Azithromycin 500 mg/250 ml [Zithromax Infusion] 500 mg in 250 ml IV NOW
CefTRIAXone [Rocephin] 1,000 mg IV NOW STA
10/14/24 11:10
ABG [Arterial Blood Gas] Urgent
%Oxygen/Room Air: 10
10/14/24 11:39
CBC/With Diff [Complete Blood Count/With Diff] Urgent
Comprehensive Metabolic Panel Urgent
Lactate Level [Lactic Acid] Urgent
Troponin I Urgent
Venous Blood Gas Urgent
%Oxygen/Room Air: 15L NRB
10/14/24 11:40
PTT Urgent
Prothrombin Time Urgent
Urinalysis Reflex To Culture Urgent
Date Specimen was Collected: 10/14/24
Time Specimen was Collected: 11:29
Urine Microscopic Reflex Cult Urgent
10/14/24 12:59
Admit/Transfer Patient As Directed
Co-Sign Provider:
Level of Care: Inpatient admission
Assign to:: IMU- Intermediate Care
Physician / Group: jael
Diagnosis: hypercarbic respiratory failure
Reason for Hospitalization: hypercarbic respiratory failure
Expected length of stay greater than two midnights?: Yes
ELOS- Estimated Length of Stay in days: 2
I certify the patient meets the requirements for IP care: Yes
Code Status As Directed
Resuscitation Status: Do not resuscitate
Reached after discussion with pt or family/Healthcare POA: Yes
DNR Bracelet Application ONCE
PRN Pain Medication Management As Directed
May give lesser potent ordered pain med per pt: Yes
preference::
Protocol:: Medication orders for pain may be administered in a
manner that supports deferring to patient preference
when the pt is:
- Requesting an ordered lesser potent pain medication.
Least to most potent pain medications are defined
as: acetaminophen < NSAID < tramadol < opioids
(morphine, oxycodone, hydromorphone).
- Requesting a lesser dose of the same medication IF
ORDERED.
- Requesting a less intrusive route of administration
if both routes are prescribed by the provider (PO <
IV).
10/14/24 13:04
EKG [Electrocardiogram (*1)] Routine
Reason for Study: Shortness of Breath
Abnormal Lab Results
10/14/24 10/14/24 10/14/24
11:10 11:39 11:40
RBC 4.09 L 10^6/uL
(4.20-5.40)
MCH 31.1 H pg
(27.0-31.0)
MCHC 32.6 L g/dL
(33.0-37.0)
pH 7.32 L
(7.35-7.45)
pCO2 107 H* mmHg
(32-35)
HCO3 55.1 H* mmol/L
(21-28)
ABG O2 Sat (Measured) 98.6 H %
(94-98)
VBG pCO2 90 H* mmHg
(35-48)
VBG pO2 188 H mmHg
(30-50)
VBG HCO3 54.5 H mmol/L
(22-27)
Chloride 91 L mmol/L
(98-107)
Carbon Dioxide 48 H mmol/L
(22-30)
Creatinine 0.5 L mg/dL
(0.6-1.0)
Glucose 129 H mg/dl
(70-99)
Lactic Acid 0.6 L mmol/L
(0.7-2.0)
Total Protein 6.2 L g/dl
(6.3-8.2)
Albumin 3.2 L g/dl
(3.5-5.0)
Urine Albumin (Reflex) 1+ A
(Neg - Trace)
10/14/24 11:39
10/14/24 11:39
Vital Signs
Initial and Last Documented VS:
Initial Vital Signs
BP
119/76
10/14/24 09:13
Last Documented Vital Signs
Temp Pulse Resp BP Pulse Ox
98.1 F 100 26 109/61 96
10/14/24 09:27 10/14/24 14:00 10/14/24 14:00 10/14/24 14:00 10/14/24 14:00
*Critical Care Note
Total Time (30-74mins, 75-104mins- exclusive of procedures): 35 minutes
ED Attending Note
ED Attending Note
ED Attending Note:
Patient presents with encephalopathy and altered mental status. Given her history of poor adherence with CPAP as well as history in the past, suspect hypercarbic encephalopathy. Lungs are clear bilaterally. She is protecting her airway at this
time. Will start on BiPAP. Differential diagnosis includes infectious etiology including pneumonia, UTI. She is also on Eliquis so will CT head to rule out intracranial bleed. Patient placed on BiPAP.
severe hypercapnea noted. Likely source of altered mental status. Improving with bipap
will treat for pneumonia
will admit to hospitalist for continued management
-
Portions of this chart may have been created with voice recognition software.� Occasional wrong word or��sound alike� substitutions may have occurred due to the inherent limitations of voice recognition software.
Discharge Plan
Departure
Patient Disposition: Admit
Date of Disposition: 10/14/24
Time of Disposition: 12:45
Presentation/result/management discussed w/ accepting MD/DO: Hospitalist
Discharge Problem:
Acute and chronic respiratory failure with hypercapnia, Acute hypoxic respiratory failure, Pneumonia
Interventions
Interventions:
*Risk Screen - Suicide Last Done: 10/14/24 10:17
*General Assessment Last Done: 10/14/24 10:15
*Neglect/Abuse Screening Last Done: 10/14/24 10:16
*ED- Fall Risk Assessment Last Done: 10/14/24 10:00
*ED COVID-19 Vaccine History Last Done: 10/14/24 10:00
ED- Cardiac Assessment Last Done: 10/14/24 10:17
ED- Pulmonary Assessment Last Done: 10/14/24 10:25
[2024-10-14] MEDS: DUONEB 3 ML INH ×2 (09:44→20:14)
[2024-10-14 10:00] LABS: COVID-19 Antigen Negative (Negative)
[2024-10-14] MEDS: ROCEPHIN 1000 MG IV (10:44)
[2024-10-14] MEDS: ZITHROMAX INFUSION 250 IV (10:53)
[2024-10-14 11:22] LABS: B.E. 22.8 mmol/L; O2 Saturation % 98.6 % (94-98); PO2 96 mmHg (83-108); pH 7.32 (7.35-7.45)
[2024-10-14 11:29] LABS: PCO2 107 mmHg (32-35)
[2024-10-14 11:30] LABS: HCO3 55.1 mmol/L (21-28)
[2024-10-14 11:48] LABS: % Basophils 0.8 % (0-2); % Eosinophils 2.2 % (0-6); % Immature Granulocytes 0.2 % (0-0.5); % Lymphocytes 23.8 % (20.5-51.1); % Monocytes 5.8 % (1.7-9.3); % Neutrophils 67.2 % (42.2-75.2); Absolute Basophils 0.1 10^3/uL (0-0.2); Absolute Eosinophils 0.2 10^3/uL (0-0.7); Absolute Monocytes 0.5 10^3/uL (0.1-0.6); Absolute Neutrophils 5.7 10^3/uL (1.4-6.5); Hematocrit 38.9 % (37.0-47.0); Hemoglobin 12.7 g/dL (12.0-16.0); Mean Corp Hgb Conc. 32.6 g/dL (33.0-37.0); Mean Corpuscular Hgb 31.1 pg (27.0-31.0); Mean Corpuscular Volume 95.1 fL (81.0-99.0); Mean Platelet Volume 10.2 fL (7.4-10.4); Nucleated Red Blood Cells % 0 %; Platelet Count 192 10^3/uL (130-400); Red Blood Cell Count 4.09 10^6/uL (4.20-5.40); Red Cell Dist. Width 11.9 % (11.5-14.5); White Blood Cell Count 8.5 10^3/uL (4.8-10.8)
[2024-10-14 11:57] LABS: Urine Albumin 1+ (Neg - Trace); Urine Bilirubin Negative (Negative); Urine Character Clear (Clear); Urine Color Yellow; Urine Glucose Negative (Negative); Urine Ketone Negative (Negative); Urine Leukocyte Negative (Negative); Urine Nitrite Negative (Negative); Urine Occult Blood Negative (Negative); Urine Urobilinogen Negative (Neg - 1+)
[2024-10-14 12:00] LABS: Albumin 3.2 g/dl (3.5-5.0); Chloride 91 mmol/L (98-107); Potassium 4.4 mmol/L (3.5-5.1); Sodium 141 mmol/L (135-145)
[2024-10-14 12:02] LABS: INR 0.95; PT 13.2 Sec (11.4-14.6)
[2024-10-14 12:03] LABS: APTT 26.4 Sec (23.4-35.0)
[2024-10-14 12:05] LABS: Venous Blood Gas HCO3 54.5 mmol/L (22-27); Venous Blood Gas O2 Sat % 99.7 %; Venous Blood Gas pH 7.39 (7.32-7.43); Venous Blood Gas pO2 188 mmHg (30-50)
[2024-10-14 12:10] LABS: Venous Blood Gas pCO2 90 mmHg (35-48)
[2024-10-14 12:14] LABS: Troponin I 0.015 ng/ml
[2024-10-14 12:17] LABS: Urine Mucus Many
[2024-10-14 12:18] LABS: Urine Squamous Cell >30 /LPF (Few)
[2024-10-14 12:19] LABS: Urine Amorphous Seen; Urine Red Blood Cell 0-2 /HPF (0-2)
[2024-10-14 12:20] LABS: Urine White Cell 0-2 /HPF (0-5)
[2024-10-14 12:29] LABS: Lactic Acid 0.6 mmol/L (0.7-2.0)
[2024-10-14 12:39] LABS: ALT (SGPT) 13 U/L (0-35); AST (SGOT) 25 U/L (14-36); Alkaline Phosphatase 51 U/L (38-126); Blood Urea Nitrogen 16 mg/dl (7-17); Calcium 9.2 mg/dl (8.4-10.2); Glucose 129 mg/dl (70-99); Total Bilirubin 0.4 mg/dl (0.2-1.3); Total Protein 6.2 g/dl (6.3-8.2); eGFR > 60.00
[2024-10-14 12:47] LABS: Carbon Dioxide 48 mmol/L (22-30)
--- NOTE | 2024-10-14 13:05 | HPS.HSE ---
Family Physician
-
Family Physician: Mark Mo
Chief Complaint
-
altered mental status
History of Present Illness
78-year-old female past medical history of COPD on 2 L baseline, obstructive sleep apnea intolerant to BiPAP, CAD, paroxysmal atrial fibrillation on Eliquis, diabetes, hypertension, hyperlipidemia, obesity, ambulatory dysfunction, presenting with
altered mental status since this morning at the [facility]. More lethargic and decreased responsiveness. She was noted to have jerking movements.
Patient unable to provide any history at this time.
Medical History
Past Medical History
Past Medical History: Reports Other ( COPD on 2 L baseline, obstructive sleep apnea intolerant to BiPAP, CAD, paroxysmal atrial fibrillation on Eliquis, diabetes, hypertension, hyperlipidemia, obesity, ambulatory dysfunction)
Past Surgical History: Reports Other (Appendectomy, Gynecological (Hysterectomy) and Orthopedic (Right hip replacement))
Social History
Tobacco: Non-smoker
Alcohol: None
Drug: None
Family History
Family History: Not pertinent
Allergies / Home Medications
Allergies reflects when Allergies were last updated in [employer].
Home Medications with original date entered in [employer]
Allergy/Medication List:
Allergies
Allergy/AdvReac Type Severity Reaction Status Date / Time
No Known Allergies Allergy Verified 06/05/24 12:34
Home Medications
acetaminophen 325 mg tablet 650 mg PO Q6HPRN PRN mild pain 06/05/24
albuterol sulfate 90 mcg/actuation aerosol inhaler 2 puff inhalation R Q6HPRN PRN sob/wheezing 06/05/24
apixaban 5 mg tablet 5 mg PO BID Blood Clot Prevention/Tx 06/05/24
aspirin 81 mg chewable tablet 81 mg PO DAILY Blood Clot Prevention/Tx 06/05/24
atorvastatin 40 mg tablet 40 mg PO HS High Cholesterol 06/05/24
docusate sodium 100 mg capsule 200 mg PO QPM Constipation 06/05/24
ferrous sulfate 325 mg (65 mg iron) tablet 325 mg PO NOON Supplement 06/05/24
furosemide 40 mg tablet 40 mg PO DAILY Fluid Retention/Swelling 06/05/24
insulin glargine 100 unit/mL (3 mL) subcutaneous pen 10 unit SC HS Diabetes 06/05/24
ipratropium 0.5 mg-albuterol 3 mg (2.5 mg base)/3 mL nebulization soln 3 ml inhalation R Q6HPRN PRN sob/wheezing 06/05/24
metformin 500 mg tablet 1,000 mg PO BID Diabetes 06/05/24
metoprolol tartrate 25 mg tablet 25 mg PO BID Blood Pressure 06/05/24
pantoprazole 40 mg tablet,delayed release 40 mg PO BID Gastrointestinal Issue 06/05/24
potassium chloride 10 mEq tablet,extended release(part/cryst) 10 meq PO DAILY Electrolyte Repletion 06/05/24
therapeutic multivitamin 1 tab PO DAILY Supplement 06/05/24
umeclidinium 62.5 mcg-vilanterol 25 mcg/actuation powdr for inhalation (Anoro Ellipta) 1 inh inhalation R DAILY Lung/Breathing Issues 06/05/24
magnesium hydroxide 400 mg/5 mL oral suspension (Milk of Magnesia) 2,400 mg PO DAILYPRN PRN constipation 07/20/24
polyethylene glycol 3350 17 gram oral powder packet (Miralax) 17 g PO DAILY Constipation 07/20/24
zinc oxide 1 ea topical DAILYPRN PRN incontinence 10/14/24
zinc oxide 1 ea topical TID b/l buttock 10/14/24
Review of Systems
-
History Source: Patient
A 12 point ROS was completed and negative except as noted: Yes
Constitutional: Reports No Symptoms
EENT: Reports No Symptoms
Respiratory: Reports No Symptoms
Cardiac: Reports No Symptoms
Abdomen/GI: Reports No Symptoms
: Reports No Symptoms
Musculoskeletal: Reports No Symptoms
Skin: Reports No Symptoms
Neurological: Reports No Symptoms
Endocrine: Reports No Symptoms
Hematologic/Lymphatic: Reports No Symptoms
Psych: Reports No Symptoms
Physical Exam
Vital Signs
Vital Signs
Temp Pulse Resp BP Pulse Ox
98.1 F 98 19 104/54 96
10/14/24 09:27 10/14/24 12:15 10/14/24 12:15 10/14/24 12:00 10/14/24 12:15
Physical Exam
General: Well Developed, Well Nourished and No Apparent Distress
HEENT: NormoCephalic, Moist mucous membranes and Atraumatic
Respiratory: Clear
Cardiac: S1/S2 and Regular Rhythm; No Murmur or Rub
GI: Soft, Non Tender, Non Distended and Normal Bowel Sounds; No Organomegaly
Rectal: Deferred by Provider
Musculoskeletal: No Clubbing, No Cyanosis and No Edema
Skin: No Rash
Neuro: Nonfocal/grossly intact
Laboratory Results
-
10/14/24 11:39
10/14/24 11:39
Laboratory Results
PT 13.2 Sec (11.4-14.6) 10/14/24 11:40
INR 0.95 10/14/24 11:40
APTT 26.4 Sec (23.4-35.0) 10/14/24 11:40
pH 7.32 (7.35-7.45) L 10/14/24 11:10
pCO2 107 mmHg (32-35) H* 10/14/24 11:10
pO2 96 mmHg (83-108) 10/14/24 11:10
HCO3 55.1 mmol/L (21-28) H* 10/14/24 11:10
Lactic Acid 0.6 mmol/L (0.7-2.0) L 10/14/24 11:39
Total Bilirubin 0.4 mg/dl (0.2-1.3) 10/14/24 11:39
AST 25 U/L (14-36) 10/14/24 11:39
ALT 13 U/L (0-35) 10/14/24 11:39
Alkaline Phosphatase 51 U/L (38-126) 10/14/24 11:39
Troponin I 0.015 ng/ml 10/14/24 11:39
Data Reviewed
-
Lab Data: Labs Reviewed by me
Old Records: Reviewed
Impression/Plan
-
IMPRESSION:
PLAN:
# Acute on chronic hypercapnic respiratory failure secondary to COPD/underlying obstructive sleep apnea
# Chronic COPD on 2 L baseline
-No wheezing on examination, some rhonchi
- Initial ABG showed pH of 7.32, PCO2 of 107 which improved on BiPAP
- CT head shows no acute abnormality
- DuoNebs every 6 hours
- Pulmonary consulted
# Left lower lobe opacity possible pneumonia
-COVID and flu negative
-Blood cultures pending
- Ceftriaxone/azithromycin
Obstructive sleep apnea
- Intolerant of BiPAP
CAD
- Continue aspirin
Paroxysmal atrial fibrillation
- Continue Eliquis
- Continue metoprolol
Mild to moderate aortic stenosis
History of questionable CHF
- Continue Lasix
Type 2 diabetes
- Continue Lantus but reduce from 10 to 5 units
- Insulin sliding scale
- Hold metformin
Essential hypertension
Hyperlipidemia
- Continue statin
Obesity
Ambulatory dysfunction
Constipation
- Continue bowel regimen
DNR/DNI
DVT prophylaxis�Eliquis
Cardiac diet
--- NOTE | 2024-10-14 15:07 | CON.PUL ---
Consultation
Consultation Request
Date/Time Consultation Requested: 10/14/2024
Date/Time Consultation Performed: 10/14/2024
Requesting Provider: Sera Rojo
Performing Provider: Yuly Jamil
Reason for Consultation: Hypercapnia
Medical History
-
Chief Complaint: Altered mental status
History of Present Illness:
Patient is a 78-year-old female with morbid obesity, oxygen dependent COPD, chronic severe hypercapnia, BiPAP intolerance, was brought to [facility] emergency room from [facility] facility for altered mental status. First blood gas shows worsening
hypercapnia however pH was only mildly decreased. Patient was started on BiPAP with improving blood gas. Pulmonary consultation was requested for further workup.
Patient on BiPAP, protecting her airway well during my evaluation. She would only answer with yes and no and will withdraw to pain otherwise no meaningful conversation. On excessive questioning, patient sounded quite irritated and did not seem to
want to engage further. I discussed with the emergency room nurse at bedside, she reported not hearing any coughing in some time. Patient otherwise afebrile, no expectoration noted. I reviewed patient's prior emergency room visit in July 2024,
reportedly she had a similar change in her mental status and was noted to have pCO2 more than 115 with acidosis, which responded to BiPAP therapy with gradual improvement. Her baseline pCO2 seems to be around mid 70s.
Past Medical History
Past Medical History: Reports Other ( COPD on 2 L baseline, obstructive sleep apnea intolerant to BiPAP, CAD, paroxysmal atrial fibrillation on Eliquis, diabetes, hypertension, hyperlipidemia, obesity, ambulatory dysfunction)
Past Surgical History: Reports Other (Appendectomy, Gynecological (Hysterectomy) and Orthopedic (Right hip replacement))
Social History
Tobacco: Non-smoker
Alcohol: None
Drug: None
Family History
Family History: Not pertinent
Allergies / Home Medications
Allergies reflects when Allergies were last updated in [employer].
Home Medications with original date entered in [employer]
Allergy/Medication List:
Allergies / Home Medications
Allergies
Allergy/AdvReac Type Severity Reaction Status Date / Time
No Known Allergies Allergy Verified 06/05/24 12:34
Home Medications
�Medication �Instructions �Recorded �Confirmed �Last Taken �Type
acetaminophen 325 mg tablet 650 mg PO Q6HPRN PRN mild pain 06/05/24 10/14/24 Unknown History
albuterol sulfate 90 mcg/actuation 2 puff inhalation R Q6HPRN PRN 06/05/24 10/14/24 Unknown History
aerosol inhaler sob/wheezing
apixaban 5 mg tablet 5 mg PO BID Blood Clot 06/05/24 10/14/24 Unknown History
Prevention/Tx
aspirin 81 mg chewable tablet 81 mg PO DAILY Blood Clot 06/05/24 10/14/24 Unknown History
Prevention/Tx
atorvastatin 40 mg tablet 40 mg PO HS High Cholesterol 06/05/24 10/14/24 Unknown History
docusate sodium 100 mg capsule 200 mg PO QPM Constipation 06/05/24 10/14/24 Unknown History
ferrous sulfate 325 mg (65 mg 325 mg PO NOON Supplement 06/05/24 10/14/24 Unknown History
iron) tablet
furosemide 40 mg tablet 40 mg PO DAILY Fluid 06/05/24 10/14/24 Unknown History
Retention/Swelling
insulin glargine 100 unit/mL (3 10 unit SC HS Diabetes 06/05/24 10/14/24 Unknown History
mL) subcutaneous pen
ipratropium 0.5 mg-albuterol 3 mg 3 ml inhalation R Q6HPRN PRN 06/05/24 10/14/24 Unknown History
(2.5 mg base)/3 mL nebulization sob/wheezing
soln
metformin 500 mg tablet 1,000 mg PO BID Diabetes 06/05/24 10/14/24 Unknown History
metoprolol tartrate 25 mg tablet 25 mg PO BID Blood Pressure 06/05/24 10/14/24 Unknown History
pantoprazole 40 mg tablet,delayed 40 mg PO BID Gastrointestinal Issue 06/05/24 10/14/24 Unknown History
release
potassium chloride 10 mEq 10 meq PO DAILY Electrolyte 06/05/24 10/14/24 Unknown History
tablet,extended release(part/cryst) Repletion
therapeutic multivitamin 1 tab PO DAILY Supplement 06/05/24 10/14/24 Unknown History
umeclidinium 62.5 mcg-vilanterol 1 inh inhalation R DAILY 06/05/24 10/14/24 Unknown History
25 mcg/actuation powdr for Lung/Breathing Issues
inhalation (Anoro Ellipta)
magnesium hydroxide 400 mg/5 mL 2,400 mg PO DAILYPRN PRN 07/20/24 10/14/24 Unknown History
oral suspension (Milk of Magnesia) constipation
polyethylene glycol 3350 17 gram 17 g PO DAILY Constipation 07/20/24 10/14/24 Unknown History
oral powder packet (Miralax)
zinc oxide 1 ea topical DAILYPRN PRN 10/14/24 10/14/24 Unknown History
incontinence
zinc oxide 1 ea topical TID b/l buttock 10/14/24 10/14/24 Unknown History
Review of Systems
-
Unable to Obtain full review of systems at this time due to: Patient Non Verbal (Patient was answering only with yes or no and was quite irate on further questioning.)
Vitals / Labs / Diagnostic Testing
Vital Signs
Temp Pulse Resp BP Pulse Ox
98.1 F 100 26 109/61 96
10/14/24 09:27 10/14/24 14:00 10/14/24 14:00 10/14/24 14:00 10/14/24 14:00
Lab Data
10/14/24 11:39
10/14/24 11:39
Laboratory Results
10/14/24 10/14/24
11:10 11:40
PT 13.2
INR 0.95
APTT 26.4
pH 7.32 L
pCO2 107 H*
pO2 96
HCO3 55.1 H*
O2 Delivery Level
Microbiology
10/14/24 09:37 Nasal Swab Influenza Types A & B ([facility]) - Final
Negative for Influenza A & B, NAAT
Negative results must be combined with clinical observations
and patient history.
Nucleic Acid Amplification test (NAAT)performed on the
[employer] platform.
Diagnostic Testing:
Physical Exam
-
HEENT: Normocephalic
Cardiovascular: S1/S2
Respiratory: Wheeze (Minimal end expiratory wheezing. Prolonged expiration.)
GI: Soft and Non Distended
Neurology: Awake (Patient sleeping, wakes up with some stimulation and follows simple commands, quite irritated during my evaluation.)
Skin: Warm
Assessment
-
#1. Acute on chronic hypoxic and hypercapnic respiratory failure. Multifactorial, underlying COPD, morbid obesity, sleep apnea as well as suspected obesity hypoventilation syndrome.
-Admission blood gas, 7.32, pCO2 of 107. Improved to 7.39 with pCO2 of 90 after being on BiPAP. Patient pulling high 300-500 tidal volume on BiPAP. Even with CO2 retention, pH is near normal. I do not think patient's mental status changes are
related to hypercapnic respiratory failure only, continue to look for other causes including medications, UTI and other metabolic derangements.
-Continue BiPAP support for 4 hours followed by a 2-hour break if tolerated and then resume nightly
-Optimize underlying COPD
-I suspect underlying obstructive sleep apnea and obesity hypoventilation syndrome playing a major role in her chronic hyper-capnea with intermittent acute worsening. Once she is recovered from acute illness, will discuss regarding weight loss
causing drugs versus bariatric surgery and need for compliance with PAP therapy.
-Patient takes Anoro at home. She needs to be on triple therapy post discharge, Breztri or Trelegy. Alternatively she can be on Anoro along with ICS.
#2. LLL pneumonia vs atelectasis.
Influenza A/B screen negative. COVID-19 -ve. WBC normal at 8.5, afebrile.
-Patient is otherwise afebrile, normal white count. Imaging more suggestive of atelectasis rather than pneumonia
-Check procalcitonin, if negative will only treat with 3 days of Zithromax 500 mg daily for COPD exacerbation.
#3. Acute COPD exacerbation, baseline O2 dependent.
-Continue DuoNeb scheduled and budesonide every 12
-Prednisone 30 mg daily, favor short course of max 5 days
-Continue azithromycin 500 mg daily for 3 days
#4. Morbid Obesity with h/o CHRISTIANO with suspected Obesity hypoventilation syndrome.
-Patient reportedly not using PAP therapy at the nursing facility
-Will continue to financial counselor regarding need for noninvasive positive pressure ventilation. Compliance with BiPAP will also help reduce hospitalization related to COPD exacerbations and CO2 narcosis
Other medical diagnoses:
-Atrial Fibrillation on Eliquis
-HTN, HLD
-Mild moderate Aortic Stenosis
-DM
-CAD. h/o NSTEMI
Patient needs full pulmonary function testing including DLCO assessment lung volumes, spirometry and bronchodilator responsiveness. This can be pursued as outpatient with pulmonary clinic.
Total time spent on this consultation/encounter _65___ minutes which includes review of history, physical exam, medications, laboratory data, personal review of imaging, extensive review of outpatient records, discussion with care team and
respiratory therapy.
Data:
CXR 10/2024: 1. Hazy opacity at the left lung base, associated with partial obscuration of the left hemidiaphragm, new compared to prior chest x-ray. Findings may related to left lower lobe pneumonia, aspiration, or subsegmental atelectasis.
2. Chronic elevation of right hemidiaphragm, with suspected right basilar subsegmental atelectasis.
ECHO 07/2024: Hyperdynamic left ventricular systolic function. Left ventricular ejection
fraction is 70-75%. Rv normal. Estimated PAP, 20-25 mm
Moderate concentric left ventricular hypertrophy.
Mild/moderate aortic stenosis. Peak gradient 28mmHg/Mean gradient 15mmHg -
using an LVOT of 2.1cm the estimated aortic valve area is 1.5cm2. (Visually
looks worse than mild.)
[2024-10-14 17:13] LABS: Procalcitonin < 0.05 ng/ml (0.0-0.25)
[2024-10-14] MEDS: PROTONIX PO (19:14)
[2024-10-14] MEDS: COLACE PO (19:14)
[2024-10-14] MEDS: ELIQUIS PO (19:14)
[2024-10-14] MEDS: LOPRESSOR PO (19:14)
[2024-10-14] MEDS: NOVOLOG FLEXPEN-LOW RESISTANCE SC (19:15)
[2024-10-14 19:26] LABS: Glucose - Point of Care 82 mg/dl (70-99)
[2024-10-14] MEDS: ELIQUIS 5 MG PO (19:58)
[2024-10-14] MEDS: COLACE 200 MG PO (19:58)
[2024-10-14] MEDS: PROTONIX 40 MG PO (19:58)
[2024-10-14] MEDS: LOPRESSOR 25 MG PO (19:59)
[2024-10-14 20:41] LABS: Venous Blood Gas B.E. 23.3 mmol/L (-4 to +4); Venous Blood Gas HCO3 50.6 mmol/L (22-27); Venous Blood Gas O2 Sat % 99.6 %; Venous Blood Gas pCO2 62 mmHg (35-48); Venous Blood Gas pH 7.52 (7.32-7.43); Venous Blood Gas pO2 238 mmHg (30-50)
[2024-10-14] MEDS: LIPITOR PO ×2 (21:22→21:39)
[2024-10-14 21:35] LABS: Glucose - Point of Care 102 mg/dl (70-99)
--- NOTE | 2024-10-14 21:44 | PTCARENOTE ---
pt admitted right at shift change. pt drowsy but arousable. was able to take PO pills with applesauce without issues. VBG's drawn and sent down. pt is oriented x2- frequently asking where she is and why she is in the hospital. bed alarm on. NSR/ST
on the monitor. pt on bipap so far for shift. pt verbalized understanding for needing to wear the bipap at this time. PW intact, draining yellow mejia urine. pt oriented to new room, call borrego within reach, care ongoing.
[2024-10-14] MEDS: LANTUS 0.05 UNITS SC (22:17)
[2024-10-15] VITALS (15 sets, daily range): BP systolic 101–143; BP diastolic 46–92; PULSE 2–82
[2024-10-15 05:00] LABS: Venous Blood Gas B.E. 23.5 mmol/L (-4 to +4); Venous Blood Gas HCO3 53.2 mmol/L (22-27); Venous Blood Gas O2 Sat % 98.6 %; Venous Blood Gas pH 7.42 (7.32-7.43); Venous Blood Gas pO2 98 mmHg (30-50)
[2024-10-15 05:07] LABS: Venous Blood Gas pCO2 82 mmHg (35-48)
[2024-10-15 05:14] LABS: % Basophils 1.2 % (0-2); % Eosinophils 4.1 % (0-6); % Immature Granulocytes 0.2 % (0-0.5); % Neutrophils 61.5 % (42.2-75.2); Absolute Basophils 0.1 10^3/uL (0-0.2); Absolute Eosinophils 0.4 10^3/uL (0-0.7); Absolute Lymphocytes 2.4 10^3/uL (1.2-3.4); Absolute Monocytes 0.6 10^3/uL (0.1-0.6); Absolute Neutrophils 5.6 10^3/uL (1.4-6.5); Hematocrit 38.6 % (37.0-47.0); Hemoglobin 12.4 g/dL (12.0-16.0); Mean Corp Hgb Conc. 32.1 g/dL (33.0-37.0); Mean Corpuscular Hgb 30.6 pg (27.0-31.0); Mean Corpuscular Volume 95.3 fL (81.0-99.0); Mean Platelet Volume 9.8 fL (7.4-10.4); Nucleated Red Blood Cells % 0 %; Platelet Count 191 10^3/uL (130-400); Red Blood Cell Count 4.05 10^6/uL (4.20-5.40); Red Cell Dist. Width 11.9 % (11.5-14.5)
[2024-10-15 05:30] LABS: ALT (SGPT) 13 U/L (0-35); AST (SGOT) 25 U/L (14-36); Albumin 3.6 g/dl (3.5-5.0); Alkaline Phosphatase 53 U/L (38-126); Blood Urea Nitrogen 21 mg/dl (7-17); Calcium 9.2 mg/dl (8.4-10.2); Chloride 91 mmol/L (98-107); Glucose 96 mg/dl (70-99); Potassium 4.6 mmol/L (3.5-5.1); Sodium 140 mmol/L (135-145); Total Bilirubin 0.4 mg/dl (0.2-1.3); Total Protein 6.4 g/dl (6.3-8.2); eGFR > 60.00
[2024-10-15 05:50] LABS: Carbon Dioxide 43 mmol/L (22-30)
[2024-10-15] MEDS: DUONEB 3 ML INH ×4 (07:29→19:54)
[2024-10-15] MEDS: KCL 10 MEQ PO (08:15)
[2024-10-15] MEDS: PROTONIX 40 MG PO ×2 (08:15→20:25)
[2024-10-15] MEDS: MIRALAX 17 GRAMS PO (08:15)
[2024-10-15] MEDS: THERAGRAN 1 TABLET PO (08:15)
[2024-10-15] MEDS: LOW STRENGTH ASPIRIN 81 MG PO (08:15)
[2024-10-15] MEDS: ELIQUIS 5 MG PO ×2 (08:15→20:25)
[2024-10-15] MEDS: LOPRESSOR 25 MG PO ×2 (08:15→20:26)
[2024-10-15] MEDS: LASIX 40 MG PO (08:15)
[2024-10-15] MEDS: NOVOLOG FLEXPEN-LOW RESISTANCE SC ×3 (08:33→16:54)
[2024-10-15 08:46] LABS: Glucose - Point of Care 81 mg/dl (70-99)
[2024-10-15 09:02] LABS: Glycohemoglobin (HgbA1c) 6.3 % (4.0-5.6)
--- NOTE | 2024-10-15 10:26 | CM ---
Patient from [facility] with Dx Acute hypercapnic respiratory failure secondary to COPD/CHRISTIANO. O2 8L, BiPAP. Receiving IV/PO Abx.
Spoke with José Manuel [facility] & Nakul, [employer] [facility];
the patient resides there in LTC on an [place] bed hold.
She is A/O at baseline, requires total care and is bedbound.
The patient was not receiving PT/OT currently.
She has been non-compliant with her BiPAP in the past.
Per Nakul, 8L O2 is the upper limit that they can accept for patients.
The patient's daughter Lilly is very involved.
The ph for report [phone] to station 1, fax [phone].
Plan contact patient's daughter prior to SNF return.
Plan return to [facility] when medically ready.
[2024-10-15] MEDS: ZITHROMAX INFUSION 250 IV (10:57)
[2024-10-15] MEDS: ROCEPHIN 1000 MG IV (11:05)
[2024-10-15] MEDS: FEOSOL 325 MG PO (11:07)
[2024-10-15 12:13] LABS: Glucose - Point of Care 190 mg/dl (70-99)
--- NOTE | 2024-10-15 12:34 | W.PN.PUL3 ---
Today's Communication / Plan
-
-Continue BiPAP nightly and when patient naps
-Discontinue ceftriaxone
-Azithromycin 500 mg daily for 3 days
-Prednisone 30 mg daily, favor short course
-VBG in a.m.
-Anticipate discharge back to [place] [facility]
Assessment
-
Patient is a 78-year-old female with morbid obesity, oxygen dependent COPD, chronic severe hypercapnia, BiPAP intolerance, was brought to the emergency room from [place] [facility] for altered mental status. First blood gas shows worsening
hypercapnia however pH was only mildly decreased. Patient was started on BiPAP with improving blood gas. Pulmonary consultation was requested for further workup.
Patient on BiPAP, protecting her airway well during my evaluation. She would only answer with yes and no and will withdraw to pain otherwise no meaningful conversation. On excessive questioning, patient sounded quite irritated and did not seem to
want to engage further. I discussed with the emergency room nurse at bedside, she reported not hearing any coughing in some time. Patient otherwise afebrile, no expectoration noted. I reviewed patient's prior emergency room visit in July 2024,
reportedly she had a similar change in her mental status and was noted to have pCO2 more than 115 with acidosis, which responded to BiPAP therapy with gradual improvement. Her baseline pCO2 seems to be around mid 70s.
#1. Acute on chronic hypoxic and hypercapnic respiratory failure. Multifactorial, underlying COPD, morbid obesity, sleep apnea as well as suspected obesity hypoventilation syndrome.
-Admission blood gas, 7.32, pCO2 of 107. Improved to 7.39 with pCO2 of 90 after being on BiPAP. Patient pulling high 300-500 tidal volume on BiPAP. Even with CO2 retention, pH is near normal.
-Patient significantly improved, switch BiPAP to nightly as well as when patient takes a nap
-Optimize underlying COPD
-I suspect underlying obstructive sleep apnea and obesity hypoventilation syndrome playing a major role in her chronic hyper-capnea with intermittent acute worsening. Once she is recovered from acute illness, will discuss regarding weight loss
causing drugs versus bariatric surgery and need for compliance with PAP therapy.
-Patient takes Anoro at home. She needs to be on triple therapy post discharge, Breztri or Trelegy. Alternatively she can be on Anoro along with ICS.
#2. LLL pneumonia vs atelectasis.
Influenza A/B screen negative. COVID-19 -ve. WBC normal at 8.5, afebrile.
-Patient is otherwise afebrile, normal white count. Imaging more suggestive of atelectasis rather than pneumonia
-Procalcitonin normal, discontinue ceftriaxone. Can give total of 3 days of azithromycin.
#3. Acute COPD exacerbation, baseline O2 dependent. No wheezing this morning.
-Continue DuoNeb as scheduled
-Prednisone 30 mg daily, favor short course of max 5 days
-Continue azithromycin 500 mg daily for 3 days
#4. Morbid Obesity with h/o CHRISTIANO with suspected Obesity hypoventilation syndrome.
-Patient reportedly not using PAP therapy at the nursing facility
-Will continue to disability counselor regarding need for noninvasive positive pressure ventilation. Compliance with BiPAP will also help reduce hospitalization related to COPD exacerbations and CO2 narcosis
Other medical diagnoses:
-Atrial Fibrillation on Eliquis
-HTN, HLD
-Mild moderate Aortic Stenosis
-DM
-CAD. h/o NSTEMI
Patient needs full pulmonary function testing including DLCO assessment lung volumes, spirometry and bronchodilator responsiveness. This can be pursued as outpatient with pulmonary clinic.
Total time spent on this consultation/encounter _32___ minutes which includes review of history, physical exam, medications, laboratory data, personal review of imaging, extensive review of outpatient records, discussion with care team and
respiratory therapy.
Data:
CXR 10/2024: 1. Hazy opacity at the left lung base, associated with partial obscuration of the left hemidiaphragm, new compared to prior chest x-ray. Findings may related to left lower lobe pneumonia, aspiration, or subsegmental atelectasis.
2. Chronic elevation of right hemidiaphragm, with suspected right basilar subsegmental atelectasis.
ECHO 07/2024: Hyperdynamic left ventricular systolic function. Left ventricular ejection
fraction is 70-75%. Rv normal. Estimated PAP, 20-25 mm
Moderate concentric left ventricular hypertrophy.
Mild/moderate aortic stenosis. Peak gradient 28mmHg/Mean gradient 15mmHg -
using an LVOT of 2.1cm the estimated aortic valve area is 1.5cm2. (Visually
looks worse than mild.)
Subjective Data
-
Date of Service:
Date of Service: October 15, 2024
Subjective:
Patient awake, alert, oriented this morning. No respiratory symptoms.
Review of Systems
Genitourinary: Other (All 14 systems reviewed and negative except as stated above in the history of present illness.)
Objective Data
Data Reviewed
Vital Signs / I&O / Oxygen:
Vital Signs
Temp Pulse Resp BP Pulse Ox
97.7 F 79 26 106/56 95
10/15/24 07:40 10/15/24 11:02 10/15/24 11:02 10/15/24 06:00 10/15/24 11:02
Intake and Output
10/14/24 10/15/24 10/16/24
06:59 06:59 06:59
Output Total 100 / 100
Balance -100 / -100
SaO2 95
Nasal Cannula flow liters per 6
minute
Physical Exam
General: Comfortable
HEENT: Normocephalic
Cardiovascular: S1-S2
Respiratory: Clear, Non-Labored Respirations and Other (No wheezing on exam this morning.)
GI: Soft and Non Distended
Neurology: Awake and Alert
Skin: Warm
Labs/Micro/Reports
Lab Data
10/15/24 04:52
10/15/24 04:52
Microbiology
10/14/24 09:49 Blood/Venous Blood Culture - Preliminary
No Growth in 24 hours- Final report to follow
10/14/24 09:37 Nasal Swab Influenza Types A & B (DAVIDSON) - Final
Negative for Influenza A & B, NAAT
Negative results must be combined with clinical observations
and patient history.
Nucleic Acid Amplification test (NAAT)performed on the
[employer] platform.
--- NOTE | 2024-10-15 14:30 | WOUNDNOTE ---
WO RN note: Patient seen during prevalence rounds. Patient has dull red chronic appearing buttocks skin suspect from moisture. Patient turned to R semi side lying position with help from ADRIÁN Abernathy. Zinc barrier ointment applied to
sacral/buttocks/leanna skin. Patient is on a Centrella Max air bed. Heels off bed with pillow. t/c SPD and ordered bariatric air chair cushion. Discussed with ADRIÁN Abernathy.
--- NOTE | 2024-10-15 15:47 | W.PN.HOSP.TC ---
Today's Communication/Plan
-
see outlined plan
Assessment / Plan
Assessment / Plan
Assessment:
Acute on chronic hypercapnic respiratory failure
acute on chronic hypoxic respiratory failure
- continue BiPAP prn and HS
- wean O2 to 2L which is baseline
Acute COPD exacerbation
Chronic COPD on 2 L baseline
- scheduled and prn nebs
- continue PO steroids; taper at discharge
- continue Azithromycin 500mg x 3 days. Procal negative. Stop Rocephin.
Obstructive sleep apnea
- Intolerant of BiPAP
CAD
- Continue aspirin
Paroxysmal atrial fibrillation
- Continue Eliquis
- Continue metoprolol
Mild to moderate aortic stenosis
History of questionable CHF
- Continue Lasix
Type 2 diabetes
- Continue Lantus - resume 10 units which is baseline dose
- Insulin sliding scale
- Hold metformin
- A1c is 6.3%
Essential hypertension
Hyperlipidemia
- Continue statin
Obesity
Ambulatory dysfunction
Constipation
- Continue bowel regimen
DVT ppx: Eliquis
Code: DNR/DNI
Anticipated Discharge: Within 24 hours
Subjective/Interval History
-
Date of Service: October 15, 2024
denies any new complaints
feels breathing improving
Objective Data
-
Labs:
Laboratory Results
10/15/24
04:52
WBC 9.0
Hgb 12.4
Hct 38.6
Plt Count 191
Sodium 140
Potassium 4.6
Chloride 91 L
Carbon Dioxide 43 H
BUN 21 H
Creatinine 0.6
Glucose 96
Calcium 9.2
Total Bilirubin 0.4
AST 25
ALT 13
Alkaline Phosphatase 53
Vital Signs:
Vital Signs
Temp Pulse Resp BP Pulse Ox
97.7 F 98 25 143/82 94
10/15/24 07:40 10/15/24 15:01 10/15/24 15:01 10/15/24 15:01 10/15/24 14:33
I&O
10/14/24 10/15/24 10/16/24
06:59 06:59 06:59
Output Total 100 / 100
Balance -100 / -100
Physical Exam
-
General: No Apparent Distress
HEENT: Normocephalic and Atraumatic
Respiratory: Negative Wheezes
Cardiac: Regular Rhythm and S1/S2
GI: Soft and Nontender
Musculoskeletal: No Edema
Neuro: AO x 3
Hematologic / Lymphatic: No Lymphadenopathy
Psych: Calm
Data Reviewed
-
Total Time Spent with Patient (in minutes): 42
Labs: Labs Reviewed by me
[2024-10-15] MEDS: ZINC OXIDE OINTMENT 1 APPLIC TOPICAL ×2 (16:03→21:38)
[2024-10-15] MEDS: DELTASONE 30 MG PO (16:03)
[2024-10-15] MEDS: COLACE PO (16:55)
[2024-10-15 17:02] LABS: Glucose - Point of Care 129 mg/dl (70-99)
[2024-10-15] MEDS: TYLENOL 650 MG PO (20:26)
[2024-10-15] MEDS: LANTUS 0.05 UNITS SC ×2 (21:38→22:30)
[2024-10-15] MEDS: LIPITOR 40 MG PO (21:38)
[2024-10-15 21:48] LABS: Glucose - Point of Care 306 mg/dl (70-99)
[2024-10-15] MEDS: ULTRAM 25 MG PO (22:33)
[2024-10-15] MEDS: NOVOLOG FLEXPEN 4 UNITS SC (22:33)
--- NOTE | 2024-10-15 23:05 | PTCARENOTE ---
Assumed care of Pt from day RN. Pt AAOx2 able to make needs known. Pt HS glucose 306, Night [employer]IO AERIAL INSTALLER placed orders see SEP.
[2024-10-16] VITALS (7 sets, daily range): BP systolic 111–168; BP diastolic 65–126
[2024-10-16 02:14] LABS: Glucose - Point of Care 203 mg/dl (70-99)
[2024-10-16 04:51] LABS: Venous Blood Gas HCO3 50.6 mmol/L (22-27); Venous Blood Gas pH 7.42 (7.32-7.43); Venous Blood Gas pO2 157 mmHg (30-50)
[2024-10-16 04:53] LABS: Venous Blood Gas pCO2 78 mmHg (35-48)
--- NOTE | 2024-10-16 05:00 | PTCARENOTE ---
Pt morning VBG showing pCO2 78, this was on 6L NC. Pt educated about wearing BiPAP and is agreeable to put back on. RT called to place. Pt had taken BiPAP off around 0200.
[2024-10-16] MEDS: DUONEB 3 ML INH ×2 (07:40→11:12)
[2024-10-16 08:28] LABS: Glucose - Point of Care 130 mg/dl (70-99)
[2024-10-16] MEDS: NOVOLOG FLEXPEN-LOW RESISTANCE SC (09:01)
[2024-10-16] MEDS: KCL 10 MEQ PO (09:02)
[2024-10-16] MEDS: PROTONIX 40 MG PO (09:02)
[2024-10-16] MEDS: DELTASONE 30 MG PO (09:02)
[2024-10-16] MEDS: MIRALAX 17 GRAMS PO (09:02)
[2024-10-16] MEDS: ELIQUIS 5 MG PO (09:03)
[2024-10-16] MEDS: THERAGRAN 1 TABLET PO (09:03)
[2024-10-16] MEDS: LASIX 40 MG PO (09:03)
[2024-10-16] MEDS: LOW STRENGTH ASPIRIN 81 MG PO (09:04)
[2024-10-16] MEDS: ZINC OXIDE OINTMENT 1 APPLIC TOPICAL (09:04)
[2024-10-16] MEDS: LOPRESSOR 25 MG PO (09:04)
[2024-10-16] MEDS: ZITHROMAX 500 MG PO (09:04)
--- NOTE | 2024-10-16 09:27 | W.PN.HOSP.TC ---
Addendum entered and electronically signed by Caty Washington MD 10/16/24 10:29:
Metabolic Encephalopathy
Original Note:
Today's Communication/Plan
-
dc back to SNF on BiPAP settings, steroid taper and finish azithro course
OP Pulm f/u
Assessment / Plan
Assessment / Plan
Assessment:
Acute on chronic hypercapnic respiratory failure
acute on chronic hypoxic respiratory failure
- continue BiPAP prn and HS
- wean O2 to 2L which is baseline (Currently 5L NC)
Acute COPD exacerbation
Chronic COPD on 2 L baseline
- scheduled and prn nebs
- continue PO steroids; taper at discharge
- continue Azithromycin 500mg x 3 days. Procal negative. Stop Rocephin.
Obstructive sleep apnea
- Intolerant of BiPAP
CAD
- Continue aspirin
Paroxysmal atrial fibrillation
- Continue Eliquis
- Continue metoprolol
Mild to moderate aortic stenosis
History of questionable CHF
- Continue Lasix
Type 2 diabetes
- Continue Lantus - resume 10 units which is baseline dose
- Insulin sliding scale
- Hold metformin
- A1c is 6.3%
Essential hypertension
Hyperlipidemia
- Continue statin
Obesity
Ambulatory dysfunction
Constipation
- Continue bowel regimen
DVT ppx: Eliquis
Code: DNR/DNI
More than 30 minutes spent in discharge including
Final examination of the patient
Summarizing hospital stay
Instructions for continuing care to all relevant caregivers
Preparation of discharge records, prescriptions, and referral forms
Total time spent (in minutes): 41
Anticipated Discharge: Today
Subjective/Interval History
-
Date of Service: October 16, 2024
denies any new complaints at present
Objective Data
-
Vital Signs:
Vital Signs
Temp Pulse Resp BP Pulse Ox
98.1 F 88 20 140/126 92
10/16/24 07:30 10/16/24 09:04 10/16/24 07:43 10/16/24 09:04 10/16/24 07:43
I&O
10/15/24 10/16/24 10/17/24
06:59 06:59 06:59
Intake Total 0 / 0
Output Total 100 / 100
Balance -100 / -100 1680 / 1680
Physical Exam
-
General: No Apparent Distress
HEENT: Normocephalic and Atraumatic
Respiratory: Negative Wheezes
Cardiac: Regular Rhythm and S1/S2
GI: Soft
Genito-urinary: No Costovertebral Tender
Neuro: AO x 3
Psych: Calm
Data Reviewed
-
Total Time Spent with Patient (in minutes): 42
Labs: Labs Reviewed by me
--- NOTE | 2024-10-16 09:34 | W.DS.TRANS ---
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
-
Discharge Instructions:
Discharge Diagnosis/Procedures acute COPD exacerbation, hypercapnic respiratory
failure
Diet 2 Gram Sodium,Low Cholesterol
Activity As tolerated
Bathing Restrictions None
Instructions:
Stand-Alone Forms:
Changes to Home Medications: No
Discharge Medications:
DC Medications w/original date entered in [employer]
acetaminophen 325 mg tablet 650 mg PO Q6HPRN PRN mild pain 06/05/24
albuterol sulfate 90 mcg/actuation aerosol inhaler 2 puff inhalation R Q6HPRN PRN sob/wheezing 06/05/24
apixaban 5 mg tablet 5 mg PO BID Blood Clot Prevention/Tx 06/05/24
aspirin 81 mg chewable tablet 81 mg PO DAILY Blood Clot Prevention/Tx 06/05/24
atorvastatin 40 mg tablet 40 mg PO HS High Cholesterol 06/05/24
docusate sodium 100 mg capsule 200 mg PO QPM Constipation 06/05/24
ferrous sulfate 325 mg (65 mg iron) tablet 325 mg PO NOON Supplement 06/05/24
furosemide 40 mg tablet 40 mg PO DAILY Fluid Retention/Swelling 06/05/24
insulin glargine 100 unit/mL (3 mL) subcutaneous pen 10 unit SC HS Diabetes 06/05/24
ipratropium 0.5 mg-albuterol 3 mg (2.5 mg base)/3 mL nebulization soln 3 ml inhalation R Q6HPRN PRN sob/wheezing 06/05/24
metformin 500 mg tablet 1,000 mg PO BID Diabetes 06/05/24
metoprolol tartrate 25 mg tablet 25 mg PO BID Blood Pressure 06/05/24
pantoprazole 40 mg tablet,delayed release 40 mg PO BID Gastrointestinal Issue 06/05/24
potassium chloride 10 mEq tablet,extended release(part/cryst) 10 meq PO DAILY Electrolyte Repletion 06/05/24
therapeutic multivitamin 1 tab PO DAILY Supplement 06/05/24
magnesium hydroxide 400 mg/5 mL oral suspension (Milk of Magnesia) 2,400 mg PO DAILYPRN PRN constipation 07/20/24
polyethylene glycol 3350 17 gram oral powder packet (Miralax) 17 g PO DAILY Constipation 07/20/24
zinc oxide 1 ea topical DAILYPRN PRN incontinence 10/14/24
zinc oxide 1 ea topical TID b/l buttock 10/14/24
azithromycin 500 mg tablet 500 mg PO DAILY 1 day #1 tab 10/16/24
fluticasone fur. 200 mcg-umeclid 62.5 mcg-vilant 25 mcg inhalat.powder (Trelegy Ellipta) 1 inh inhalation DAILY #60 ea 10/16/24
prednisone 10 mg tablet See Rx Instructions .Route .COMPLEX #15 tabs 10/16/24
Home Medication Changes
Pending Results: No
Total time spent discharging patient (in min): 42
--- NOTE | 2024-10-16 10:00 | PN.CDI ---
CDI
- -
CDI:
Physician Documentation Request
Admit Date: 10/14/24 13:50
Dear Doctor Feilx,
Please review the following and provide your response in the progress notes.
Clinical Indicators:
Pt admitted with acute on chronic Respiratory Hypoxic /Hypercapnic failure/ COPD exacerbation
Documented in ED, ' presents to the emergency department with altered mental status....he was found this morning with altered mental status, more lethargic and decreased responsiveness....Patient presents with encephalopathy and altered mental
status....suspect hypercarbic encephalopathy...severe hypercapnia noted. Likely source of altered mental status. Improving with bipap...'
Documented per H&P,' She would only answer with yes and no and will withdraw to pain otherwise no meaningful conversation. On excessive questioning, patient sounded quite irritated and did not seem to want to engage further. ...she had a similar
change in her mental status and was noted to have pCO2 more than 115 with acidosis.'
Please provide a diagnosis for the above altered mental status:
Metabolic Encephalopathy
Hypercapnic Encephalopathy
Other ( please specify)
Use of terms such as suspected, likely, concern for, or probable (associated with a specific diagnosis that is being evaluated, monitored, or treated as if it exists) are acceptable and can be coded in the inpatient setting, when documented at the
time of discharge.
Thank you,
Odalys Fontanez RN
CDI Specialist
[place] [employer]
Please use your independent medical judgment in providing your response.
--- NOTE | 2024-10-16 10:48 | PTCARENOTE ---
Rec'd pt this AM. pleasant, cooperative. Plan for d..c today to [facility] at [facility]. Report called to ADRIÁN Lomeli at [facility].
--- NOTE | 2024-10-16 10:56 | CM ---
Patient from [facility] with Dx Acute hypercapnic respiratory failure secondary to COPD/CHRISTIANO. O2 5L. BiPAP. Seen by wound care nurse. PT Screen; No skilled PT needed. Per nurse assessment; forgetful.
Met with patient and spoke with daughter Lilly by phone; both agree to d/c today back to [facility]. IMM completed. Daughter will be here around 12:30pm to see the patient before she leaves today.
Spoke with [facility], [facility]; they are able to accept the patient back today.
The ph for report [phone] to station 1, fax [phone].
Plan return to [facility] today by ambulance.
--- NOTE | 2024-10-16 10:58 | W.PN.PUL3 ---
Today's Communication / Plan
-
-Patient stable for discharge
-Discontinue Anoro, start Trelegy at discharge
-Recommend continuing BiPAP at night and when patient sleeps or naps during daytime
-Outpatient follow-up with pulmonary clinic, if patient decides to pursue further treatment
Assessment
-
Patient is a 78-year-old female with morbid obesity, oxygen dependent COPD, chronic severe hypercapnia, BiPAP intolerance, was brought to the emergency room from group home facility for altered mental status. First blood gas shows worsening
hypercapnia however pH was only mildly decreased. Patient was started on BiPAP with improving blood gas. Pulmonary consultation was requested for further workup.
Patient on BiPAP, protecting her airway well during my evaluation in ED. She would only answer with yes and no and will withdraw to pain otherwise no meaningful conversation. On excessive questioning, patient sounded quite irritated and did not
seem to want to engage further. I discussed with the emergency room nurse at bedside, she reported not hearing any coughing in some time. Patient otherwise afebrile, no expectoration noted. I reviewed patient's prior emergency room visit in
July 2024, reportedly she had a similar change in her mental status and was noted to have pCO2 more than 115 with acidosis, which responded to BiPAP therapy with gradual improvement. Her baseline pCO2 seems to be around mid 70s.
#1. Acute on chronic hypoxic and hypercapnic respiratory failure. Multifactorial, underlying COPD, morbid obesity, sleep apnea as well as suspected obesity hypoventilation syndrome.
-Admission blood gas, 7.32, pCO2 of 107. Improved to 7.39 with pCO2 of 90 after being on BiPAP. Patient pulling high 300-500 tidal volume on BiPAP. Even with CO2 retention, pH is near normal.
-Patient significantly improved, switched BiPAP to nightly as well as when patient takes a nap
-Optimize underlying COPD
-I suspect underlying obstructive sleep apnea and obesity hypoventilation syndrome playing a major role in her chronic hyper-capnea with intermittent acute worsening.
-Patient takes Anoro at home. She needs to be on triple therapy post discharge, Trelegy planned.
-10/16, I had a long discussion with patient counseling her regarding need for compliance with BiPAP. I explained to her that her recurrent hypercapnia unfortunately cannot be cured with medication alone and she needs a positive pressure
ventilation at night and when she naps. I also called patient's daughter and updated her regarding need for PAP therapy. Daughter expressed that patient has been refusing compliance with BiPAP in the past. We briefly discussed hospice care also
if patient does not want to pursue the treatment for recurrent hypercapnia
#2. LLL pneumonia vs atelectasis.
Influenza A/B screen negative. COVID-19 -ve. WBC normal at 8.5, afebrile.
-Patient is otherwise afebrile, normal white count. Imaging more suggestive of atelectasis rather than pneumonia
-Procalcitonin normal, discontinued ceftriaxone. Can give total of 3 days of azithromycin.
#3. Acute COPD exacerbation, baseline O2 dependent. No wheezing this morning.
-Continue DuoNeb as scheduled
-Prednisone 30 mg daily, favor short course of max 5 days
-Continue azithromycin 500 mg daily for 3 days
#4. Morbid Obesity with h/o CHRISTIANO with suspected Obesity hypoventilation syndrome.
-Patient reportedly not using PAP therapy at the nursing facility
-Will continue to area counselor regarding need for noninvasive positive pressure ventilation. Compliance with BiPAP will also help reduce hospitalization related to COPD exacerbations and CO2 narcosis
Other medical diagnoses:
-Atrial Fibrillation on Eliquis
-HTN, HLD
-Mild moderate Aortic Stenosis
-DM
-CAD. h/o NSTEMI
Patient needs full pulmonary function testing including DLCO assessment lung volumes, spirometry and bronchodilator responsiveness. This can be pursued as outpatient with pulmonary clinic.
Total time spent on this consultation/encounter _43___ minutes which includes review of history, physical exam, medications, laboratory data, personal review of imaging, extensive review of outpatient records, discussion with care team and
respiratory therapy.
Updated patient's daughter. Also discussed with primary team.
Data:
CXR 10/2024: 1. Hazy opacity at the left lung base, associated with partial obscuration of the left hemidiaphragm, new compared to prior chest x-ray. Findings may related to left lower lobe pneumonia, aspiration, or subsegmental atelectasis.
2. Chronic elevation of right hemidiaphragm, with suspected right basilar subsegmental atelectasis.
ECHO 07/2024: Hyperdynamic left ventricular systolic function. Left ventricular ejection
fraction is 70-75%. Rv normal. Estimated PAP, 20-25 mm
Moderate concentric left ventricular hypertrophy.
Mild/moderate aortic stenosis. Peak gradient 28mmHg/Mean gradient 15mmHg -
using an LVOT of 2.1cm the estimated aortic valve area is 1.5cm2. (Visually
looks worse than mild.)
Subjective Data
-
Date of Service:
Date of Service: October 16, 2024
Subjective:
Patient awake, alert, no respite distress this morning.
Review of Systems
Genitourinary: Other (All 14 systems reviewed and negative except as stated above in the history of present illness.)
Objective Data
Data Reviewed
Vital Signs / I&O / Oxygen:
Vital Signs
Temp Pulse Resp BP Pulse Ox
98.1 F 88 20 140/126 96
10/16/24 07:30 10/16/24 09:04 10/16/24 07:43 10/16/24 09:04 10/16/24 10:23
Intake and Output
10/15/24 10/16/24 10/17/24
06:59 06:59 06:59
Intake Total 1680 / 1680
Output Total 100 / 100
Balance -100 / -100 1680 / 1680
SaO2 96
Nasal Cannula flow liters per 5
minute
Physical Exam
General: Comfortable
HEENT: Normocephalic
Cardiovascular: S1-S2
Respiratory: Clear, Non-Labored Respirations and Other (No wheezing on exam this morning.)
GI: Soft and Non Distended
Neurology: Awake and Alert
Skin: Warm
Labs/Micro/Reports
Lab Data
10/15/24 04:52
10/15/24 04:52
Microbiology
10/14/24 09:49 Blood/Venous Blood Culture - Preliminary
No Growth in 48 hours- Final report to follow
10/14/24 09:37 Nasal Swab Influenza Types A & B ([facility]VIDSON) - Final
Negative for Influenza A & B, NAAT
Negative results must be combined with clinical observations
and patient history.
Nucleic Acid Amplification test (NAAT)performed on the
[employer] platform.
[2024-10-16 12:43] LABS: Glucose - Point of Care 205 mg/dl (70-99)
[2024-10-16] MEDS: NOVOLOG FLEXPEN-LOW RESISTANCE 2 UNITS SC (12:57)
[2024-10-16] MEDS: FEOSOL 325 MG PO (12:57)
== END 2024-10-16 13:47 | DRG 190 ==
LOC: IMU 13:50
PROVIDERS: ADMITTING PHYSICIAN Hospitalist; ATTENDING PHYSICIAN Internal Medicine; CONSULT PHYSICIAN Internal Medicine; EMERGENCY PHYSICIAN Emergency Medicine; FAMILY PHYSICIAN Internal Medicine
DX: J44.1 Chronic obstructive pulmonary disease with (acute) exacerbation (principal); G93.41 Metabolic encephalopathy; J96.21 Acute and chronic respiratory failure with hypoxia; J96.22 Acute and chronic respiratory failure with hypercapnia; J98.11 Atelectasis; E66.2 Morbid (severe) obesity with alveolar hypoventilation; I10 Essential (primary) hypertension; I48.0 Paroxysmal atrial fibrillation; E11.9 Type 2 diabetes mellitus without complications; I35.0 Nonrheumatic aortic (valve) stenosis; I25.10 Atherosclerotic heart disease of native coronary artery without angina pectoris; R26.2 Difficulty in walking, not elsewhere classified; Z99.81 Dependence on supplemental oxygen; Z79.01 Long term (current) use of anticoagulants; I25.2 Old myocardial infarction
CPT/HCPCS: 70450; 71045; 80053; 81003; 81015; 82805; 82962; 83036; 83605; 84145; 84484; 85025; 85610; 85730; 87040; 87070; 87502; 87811; 93005; 94640; 94660; 96365; 96375; 99291

== ENCOUNTER 2024-12-20 15:55 | Observation (INO) | payer MEDICARE, OTHER, SELFPAY ==
[2024-12-20] VITALS (23 sets, daily range): BP systolic 96–126; BP diastolic 53–115; BMI 33.2
[2024-12-20] MEDS: CARDIZEM 125 IV ×2 (12:35→20:19)
[2024-12-20] MEDS: CARDIZEM 10 MG IV (12:35)
[2024-12-20 12:58] LABS: % Basophils 0.8 % (0-2); % Eosinophils 1.8 % (0-6); % Immature Granulocytes 0.2 % (0-0.5); % Neutrophils 79.2 % (42.2-75.2); Absolute Basophils 0.1 10^3/uL (0-0.2); Absolute Eosinophils 0.2 10^3/uL (0-0.7); Absolute Lymphocytes 1.4 10^3/uL (1.2-3.4); Absolute Monocytes 0.7 10^3/uL (0.1-0.6); Absolute Neutrophils 9.4 10^3/uL (1.4-6.5); Hematocrit 34.3 % (37.0-47.0); Hemoglobin 11.5 g/dL (12.0-16.0); Mean Corp Hgb Conc. 33.5 g/dL (33.0-37.0); Mean Corpuscular Hgb 30.9 pg (27.0-31.0); Mean Corpuscular Volume 92.2 fL (81.0-99.0); Mean Platelet Volume 10.5 fL (7.4-10.4); Nucleated Red Blood Cells % 0 %; Platelet Count 242 10^3/uL (130-400); Red Blood Cell Count 3.72 10^6/uL (4.20-5.40); Red Cell Dist. Width 12.6 % (11.5-14.5); White Blood Cell Count 11.8 10^3/uL (4.8-10.8)
[2024-12-20 13:10] LABS: Blood Urea Nitrogen 41 mg/dl (7-17); Calcium 8.9 mg/dl (8.4-10.2); Carbon Dioxide 34 mmol/L (22-30); Chloride 98 mmol/L (98-107); Estimated Creatinine Clearance 51 ml/min; Glucose 109 mg/dl (70-99); Sodium 139 mmol/L (135-145); eGFR > 60.00
[2024-12-20 13:22] LABS: Troponin I 0.014 ng/ml
--- NOTE | 2024-12-20 13:25 | ED.GENMED ---
History of Present Illness
General
Chief Complaint: Cardiac Symptoms
Source: patient and ambulance crew
Exam Limitations: none
Time Seen by Provider: 12/20/24 11:56
Nursing documentation reviewed up to this point in time: agreed with
History of Present Illness
History of Present Illness:
Patient with history of paroxysmal atrial fibrillation on Eliquis, presents to ED secondary to sensation of dizziness, associated with hypotension and tachycardia at [facility]. Upon arrival, patient is found to be in rapid atrial flutter.
Patient denies chest pain. Denies shortness of breath. Denies chest palpitations. Denies nausea or vomiting. Denies recent illness. Denies recent change in medications or diet.
Past History
Past History
ED Past Medical History: Arrthythmia, CHF, COPD and GERD
ED Past Surgical History: Appendectomy, Gynecological (Hysterectomy) and Orthopedic (Right hip replacement)
Social History
Living: [facility]
Review of Systems
Review of Systems
Allergies reviewed?: Yes
All Other Systems: ROS reviewed and negative except as documented in HPI and ROS
Constitutional: Reports no symptoms; Denies fever
Respiratory: Reports no symptoms
Cardiac: Reports no symptoms
ABD/GI: Reports no symptoms
Musculoskeletal: Reports no symptoms
Skin: Reports no symptoms
Neurological: Reports dizzy
Phy Exam
Physical Exam
Physical Exam:
Physical Exam
General: no apparent distress, not acutely ill. afebrile
Head: nc/at. eomi
Neck: supple. no meningeal signs.
Heart: tachycardic without murmur
Lungs: no acute respiratory distress. clear bilaterally
Abdomen: normal bowel sounds. not tender.
Neuro: alert and oriented x 3. no focal neurological deficits
Skin: no rash
Psychiatric: well kept. interactive and cooperative
Extremities: no edema. no calf tenderness.
Course
Orders/Labs/Results
Orders:
Orders
12/20/24 11:36
EKG [Electrocardiogram (*1)] Urgent
Reason for Study: Atrial Fibrillation
12/20/24 11:37
EKG- Treatment ONCE
12/20/24 12:26
EKG [Electrocardiogram (*1)] Urgent
Reason for Study: Atrial Flutter
EKG- Treatment ONCE
12/20/24 12:27
Metoprolol [Lopressor] 5 mg .ROUTE .STK-MED ONE
12/20/24 12:29
Diltiazem 125 mg/125 ml Nss [Cardizem] 125 mg in 125 ml .ROUTE .STK-MED
Diltiazem HCl [Cardizem] 25 mg .ROUTE .STK-MED ONE
12/20/24 12:35
Diltiazem HCl [Cardizem] 10 mg IV NOW STA
12/20/24 12:51
Basic Metabolic Panel Urgent
CBC/With Diff [Complete Blood Count/With Diff] Urgent
Troponin I Urgent
12/20/24 13:15
Diltiazem 125 mg/125 ml Nss [Cardizem] 125 mg in 125 ml IV PER PROTOCOL
Initial dose in mg/hr, then titrate:: 5
Titrate to keep:: Heart rate 80-100 bpm
Titrate by mg/hr:: 5 mg/hr
Frequency of titrations (minutes):: 15
Maximum dose in mg/hr:: 15
12/20/24 13:41
Diltiazem HCl [Cardizem] 10 mg IV NOW STA
12/20/24 13:44
Diltiazem HCl [Cardizem] 15 mg IV NOW STA
12/20/24 14:11
Metoprolol [Lopressor] 5 mg IV NOW STA
12/20/24 14:54
Add On- LAB Urgent
Tests Added?: mag and phos
12/20/24 15:03
Admit/Transfer Patient As Directed
Co-Sign Provider:
Level of Care: Observation services
Assign to:: IVU
Physician / Group: Calvin Rojo
Diagnosis: atrial flutter
12/20/24 15:04
PRN Pain Medication Management As Directed
May give lesser potent ordered pain med per pt: Yes
preference::
Protocol:: Medication orders for pain may be administered in a
manner that supports deferring to patient preference
when the pt is:
- Requesting an ordered lesser potent pain medication.
Least to most potent pain medications are defined
as: acetaminophen < NSAID < tramadol < opioids
(morphine, oxycodone, hydromorphone).
- Requesting a lesser dose of the same medication IF
ORDERED.
- Requesting a less intrusive route of administration
if both routes are prescribed by the provider (PO <
IV).
12/20/24 15:06
Code Status As Directed
Resuscitation Status: Do not resuscitate
Reached after discussion with pt or family/Healthcare POA: Yes
Decision communicated with: patient and daughter
DNR Bracelet Application ONCE
12/20/24 15:54
PRN Pain Medication Management As Directed
May give lesser potent ordered pain med per pt: Yes
preference::
Protocol:: Medication orders for pain may be administered in a
manner that supports deferring to patient preference
when the pt is:
- Requesting an ordered lesser potent pain medication.
Least to most potent pain medications are defined
as: acetaminophen < NSAID < tramadol < opioids
(morphine, oxycodone, hydromorphone).
- Requesting a lesser dose of the same medication IF
ORDERED.
- Requesting a less intrusive route of administration
if both routes are prescribed by the provider (PO <
IV).
12/20/24 17:41
Magnesium Urgent
Comment: MUST BE COLLECT. SPECIMEN IN LAB IS HEMOLYZED
Phosphorus Urgent
Comment: MUST BE COLLECT. SPECIMEN IN LAB IS HEMOLYZED
Potassium Urgent
12/22/24 11:00
DC Protocol for Telemetry ONCE
Abnormal Lab Results
12/20/24
12:51
WBC 11.8 H 10^3/uL
(4.8-10.8)
RBC 3.72 L 10^6/uL
(4.20-5.40)
Hgb 11.5 L g/dL
(12.0-16.0)
Hct 34.3 L %
(37.0-47.0)
MPV 10.5 H fL
(7.4-10.4)
Absolute Neuts (auto) 9.4 H 10^3/uL
(1.4-6.5)
Absolute Monos (auto) 0.7 H 10^3/uL
(0.1-0.6)
Neutrophils % 79.2 H %
(42.2-75.2)
Lymphocytes % 12.0 L %
(20.5-51.1)
Carbon Dioxide 34 H mmol/L
(22-30)
BUN 41 H mg/dl
(7-17)
Glucose 109 H mg/dl
(70-99)
12/20/24 12:51
12/20/24 12:51
Vital Signs
Initial and Last Documented VS:
Initial Vital Signs
Temp Pulse Resp BP Pulse Ox
98.3 F 155 28 110/85 93
12/20/24 11:39 12/20/24 11:39 12/20/24 11:39 12/20/24 11:39 12/20/24 11:39
Last Documented Vital Signs
Temp Pulse Resp BP Pulse Ox
98.3 F 154 28 118/100 91
12/20/24 11:39 12/20/24 16:00 12/20/24 16:00 12/20/24 15:20 12/20/24 16:00
MDM/Problems Addressed
MDM/Problems Addressed:
History, exam, and EKG concerning for rapid atrial fibrillation/flutter. Despite multiple boluses of Cardizem along with Lopressor IV, and on maximum dose of Cardizem infusion, patient remains tachycardic. As such, patient will be admitted for
further evaluation and treatment.
Critical care statement: A total of 40 minutes of critical care time was provided for this patient. This includes management of unstable vital signs, evaluation of the patient at bedside, reviewing the patient's pertinent medical records, review of
old EKGs and review of pertinent medical records. This time with separate from time utilized to perform the aforementioned documented procedures
*Pulse Oximetry
Patient hypoxic: yes (93%)
*EKG
Interpreted by ED Provider?: Yes
EKG Intrepretation Date: 12/20/24
Heart Rate: 155
Rate: tachycardiac
Rhythm: atrial flutter
Tabor: normal axis
*Critical Care Note
Total Time (30-74mins, 75-104mins- exclusive of procedures): 40 min
ED Attending Note
-
Portions of this chart may have been created with voice recognition software.� Occasional wrong word or��sound alike� substitutions may have occurred due to the inherent limitations of voice recognition software.
Discharge Plan
Departure
Patient Disposition: Admit
Date of Disposition: 12/20/24
Time of Disposition: 14:30
Admit to: IVU
Presentation/result/management discussed w/ accepting MD/DO: Hospitalist
Discharge Problem:
Atrial fibrillation, rapid
Interventions
Interventions:
*Risk Screen - Suicide Last Done: 12/20/24 11:39
*General Assessment Last Done: 12/20/24 11:39
*Neglect/Abuse Screening Last Done: 12/20/24 11:39
*ED COVID-19 Vaccine History Last Done: 12/20/24 11:39
ED- Pulmonary Assessment Last Done: 12/20/24 12:10
ED- Cardiac Assessment Last Done: 12/20/24 12:10
[2024-12-20] MEDS: CARDIZEM 15 MG IV (13:46)
[2024-12-20] MEDS: LOPRESSOR 5 MG IV (14:19)
--- NOTE | 2024-12-20 14:33 | HPS.HSE ---
Family Physician
-
Family Physician: Mark Mo
Chief Complaint
-
dizziness, tachycardia and hypotension
History of Present Illness
Patient is a 79-year-old female with past medical history significant for COPD on 2L baseline, obstructive sleep apnea intolerant to BiPAP, CAD, paroxysmal atrial fibrillation on Eliquis, diabetes, hypertension, hyperlipidemia, obesity and
ambulatory dysfunction who presented to [facility] ED for evaluation of tachycardia, dizziness and hypotension. Patient from [facility] who was found to be tachycardic this morning after complaining about feeling dizzy and short of
breath. She was also hypotensive. Staff administered morning medications with no improvement and ultimately sent patient for evaluation. Patient denies any fever, chills, cough, chest pain, nausea, vomiting, constipation, diarrhea or urinary
symptoms. She does report a mild sore throat saturday that resolved without intervention.
Medical History
Past Medical History
Past Medical History: Reports Other
Additional Past Medical History:
COPD on 2L baseline
obstructive sleep apnea intolerant to BiPAP
CAD
paroxysmal atrial fibrillation on Eliquis
diabetes
hypertension
hyperlipidemia
obesity
ambulatory dysfunction
Past Surgical History: Reports Other
Additional Past Surgical History:
Appendectomy
Hysterectomy
Right hip replacement
Social History
Tobacco: Non-smoker
Alcohol: None
Drug: None
Living: Jail
Family History
Family History: Not pertinent
Allergies / Home Medications
Allergies reflects when Allergies were last updated in [facility].
Home Medications with original date entered in [facility]
Allergy/Medication List:
Allergies
Allergy/AdvReac Type Severity Reaction Status Date / Time
No Known Allergies Allergy Verified 12/20/24 11:38
Home Medications
acetaminophen 325 mg tablet 650 mg PO Q6HPRN PRN mild pain 06/05/24
albuterol sulfate 90 mcg/actuation aerosol inhaler 2 puff inhalation R Q6HPRN PRN sob/wheezing 06/05/24
apixaban 5 mg tablet 5 mg PO BID Blood Clot Prevention/Tx 06/05/24
aspirin 81 mg chewable tablet 81 mg PO DAILY Blood Clot Prevention/Tx 06/05/24
atorvastatin 40 mg tablet 40 mg PO HS High Cholesterol 06/05/24
docusate sodium 100 mg capsule 200 mg PO QPM Constipation 06/05/24
ferrous sulfate 325 mg (65 mg iron) tablet 325 mg PO NOON Supplement 06/05/24
furosemide 40 mg tablet 40 mg PO DAILY Fluid Retention/Swelling 06/05/24
insulin glargine 100 unit/mL (3 mL) subcutaneous pen 10 unit SC HS Diabetes 06/05/24
ipratropium 0.5 mg-albuterol 3 mg (2.5 mg base)/3 mL nebulization soln 3 ml inhalation R Q6HPRN PRN sob/wheezing 06/05/24
metoprolol tartrate 25 mg tablet 25 mg PO BID Blood Pressure 06/05/24
pantoprazole 40 mg tablet,delayed release 40 mg PO BID Gastrointestinal Issue 06/05/24
potassium chloride 10 mEq tablet,extended release(part/cryst) 10 meq PO DAILY Electrolyte Repletion 06/05/24
therapeutic multivitamin 1 tab PO DAILY Supplement 06/05/24
magnesium hydroxide 400 mg/5 mL oral suspension (Milk of Magnesia) 2,400 mg PO DAILYPRN PRN constipation 07/20/24
polyethylene glycol 3350 17 gram oral powder packet (Miralax) 17 g PO DAILYPRN PRN constipation 07/20/24
zinc oxide 1 ea topical DAILYPRN PRN b/l buttocks, incontinence care 10/14/24
zinc oxide 1 ea topical TID b/l buttocks 10/14/24
melatonin 3 mg tablet 3 mg PO HS 12/20/24
metformin 1,000 mg tablet 1,000 mg PO BID 12/20/24
nystatin 100,000 unit/gram topical powder 1 applic topical TID 12/20/24
sertraline 50 mg tablet 50 mg PO DAILY 12/20/24
umeclidinium 62.5 mcg-vilanterol 25 mcg/actuation powdr for inhalation (Anoro Ellipta) 1 inh inhalation DAILY 12/20/24
Review of Systems
-
History Source: Patient
EENT: Reports Sore Throat (on Saturday12/18/24, resolved spontaneously without intervention )
Respiratory: Reports Trouble Breathing (shortness of breath)
Neurological: Reports Dizzy
Physical Exam
Vital Signs
Vital Signs
Temp Pulse Resp BP Pulse Ox
98.3 F 152 27 103/78 93
12/20/24 11:39 12/20/24 14:19 12/20/24 13:30 12/20/24 14:19 12/20/24 13:30
Physical Exam
General: Well Developed, Well Nourished, No Apparent Distress, Comfortable, Conversant and Morbidly Obese
HEENT: NormoCephalic, Moist mucous membranes, Atraumatic, Nose Appears Normal and Ears Appear Normal
Respiratory: Clear and Non Labored Respirations
Cardiac: S1/S2, Regular Rhythm and Tachycardia
Breast: Deferred by me
GI: Soft, Non Tender, Non Distended and Normal Bowel Sounds; No Organomegaly
Rectal: Deferred by Provider
Genito-urinary: Deferred by me
Musculoskeletal: No Clubbing, No Cyanosis and No Edema
Skin: No Rash
Neuro: Awake, Alert and Nonfocal/grossly intact
Psych: Calm
Laboratory Results
-
12/20/24 12:51
12/20/24 12:51
Laboratory Results
Total Bilirubin Cancelled 12/20/24 12:51
AST Cancelled 12/20/24 12:51
ALT Cancelled 12/20/24 12:51
Alkaline Phosphatase Cancelled 12/20/24 12:51
Troponin I 0.014 ng/ml 12/20/24 12:51
Data Reviewed
-
Medical Tests (Nuc Med, Echo, EKG etc): Report Reviewed by me (EKG: Critical Test Result: High HR ATRIAL FLUTTER WITH 2:1 A-V CONDUCTION NON-SPECIFIC INTRA-VENTRICULAR CONDUCTION BLOCK T WAVE ABNORMALITY, CONSIDER ANTEROLATERAL ISCHEMIA)
Lab Data: Labs Reviewed by me (WC 11.8, )
Impression/Plan
-
IMPRESSION/PLAN:
#dizziness, hypotension, tachycardia likely 2/2 Atrial Flutter
EKG: Critical Test Result: High HR
ATRIAL FLUTTER WITH 2:1 A-V CONDUCTION
NON-SPECIFIC INTRA-VENTRICULAR CONDUCTION BLOCK
T WAVE ABNORMALITY, CONSIDER ANTEROLATERAL ISCHEMIA
- Admit to telemetry
- Consult Cardiology
- IV Cardizem
#COPD on 2L baseline
- continue oxygen, albuterol, DuoNeb and Anoro-Ellipta
#CAD
#hyperlipidemia
- continue aspirin and atorvastatin
#paroxysmal atrial fibrillation on Eliquis
- continue Eliquis
#diabetes
- AccuCheck AC & HS
- SSI
- continue insulin glargine
- hold metformin
#hypertension
- continue furosemide,
#obesity
#ambulatory dysfunction
#obstructive sleep apnea intolerant to BiPAP
Code status: DNR
DVT Prophylaxis: Eliquis
--- NOTE | 2024-12-20 15:22 | W.PN.UPDATE ---
Update Note
Progress Note Update
This is an addendum to H&P written by Connie Haji on 12/20/2024. �Patient seen and examined independently with MEDICAL DEVICE.
79-year-old female past medical history of COPD on 5 L baseline, obstructive sleep apnea, CAD, paroxysmal atrial fibrillation on Eliquis, mild to moderate aortic stenosis, questionable CHF, type 2 diabetes, hypertension, hyperlipidemia, obesity,
ambulatory dysfunction, constipation, presenting with dizziness, hypotension and tachycardia and mcc. �No chest pain or shortness of breath. �No vomiting or recent illness.
Patient found to have heart rate in the 150s with atrial flutter with 2:1 conduction.
Labs showed leukocytosis. �Troponin 0.014. �Prior echocardiogram shows ejection fraction of 70-75%, concentric LVH. �Mild to moderate aortic stenosis.
Patient with atrial fibrillation with RVR.
Metoprolol was given followed by Cardizem bolus and drip.
Cardiology consulted.
--- NOTE | 2024-12-20 15:49 | CON.CAR ---
Consultation
Consultation Request
Date/Time Consultation Requested: 12/20/2024 at 3:11 PM
Date/Time Consultation Performed: 12/20/2024 at 3:45 PM
Requesting Provider: INGA Hobbs
Performing Provider: Gordon Kemp MD
Reason for Consultation: Aflutter
Medical History
-
Chief Complaint: Tachycardia and dizziness
History of Present Illness:
79-year-old female with past medical history significant for COPD on 2L baseline, obstructive sleep apnea intolerant to BiPAP, CAD, paroxysmal atrial fibrillation on Eliquis, diabetes, hypertension, hyperlipidemia, obesity and ambulatory dysfunction
who presented to [facility] ED for evaluation of tachycardia, dizziness and hypotension from [facility]. In the ER she was found to be in atrial flutter with 2:1 conduction, and was started on IV Cardizem infusion. She is asymptomatic at this time.
She denies any recent illness. I confirmed with her facility that she is on Eliquis 5 mg twice daily. She has not missed any doses since December 06 but they cannot go back any further into their records. Patient does not know if she has been
compliant.
Past Medical History
Past Medical History: Other (as above)
Social History
Living: Alf
Family History
Family History: Reviewed & Not Pertinent
Allergies / Home Medications
Allergy/AdvReac Type Severity Reaction Status Date / Time
No Known Allergies Allergy Verified 12/20/24 11:38
�Medication �Instructions �Recorded �Confirmed �Type
acetaminophen 325 mg tablet 650 mg PO Q6HPRN PRN mild pain 06/05/24 12/20/24 History
albuterol sulfate 90 mcg/actuation 2 puff inhalation R Q6HPRN PRN 06/05/24 12/20/24 History
aerosol inhaler sob/wheezing
apixaban 5 mg tablet 5 mg PO BID Blood Clot 06/05/24 12/20/24 History
Prevention/Tx
aspirin 81 mg chewable tablet 81 mg PO DAILY Blood Clot 06/05/24 12/20/24 History
Prevention/Tx
atorvastatin 40 mg tablet 40 mg PO HS High Cholesterol 06/05/24 12/20/24 History
docusate sodium 100 mg capsule 200 mg PO QPM Constipation 06/05/24 12/20/24 History
ferrous sulfate 325 mg (65 mg 325 mg PO NOON Supplement 06/05/24 12/20/24 History
iron) tablet
furosemide 40 mg tablet 40 mg PO DAILY Fluid 06/05/24 12/20/24 History
Retention/Swelling
insulin glargine 100 unit/mL (3 10 unit SC HS Diabetes 06/05/24 12/20/24 History
mL) subcutaneous pen
ipratropium 0.5 mg-albuterol 3 mg 3 ml inhalation R Q6HPRN PRN 06/05/24 12/20/24 History
(2.5 mg base)/3 mL nebulization sob/wheezing
soln
metoprolol tartrate 25 mg tablet 25 mg PO BID Blood Pressure 06/05/24 12/20/24 History
pantoprazole 40 mg tablet,delayed 40 mg PO BID Gastrointestinal Issue 06/05/24 12/20/24 History
release
potassium chloride 10 mEq 10 meq PO DAILY Electrolyte 06/05/24 12/20/24 History
tablet,extended release(part/cryst) Repletion
therapeutic multivitamin 1 tab PO DAILY Supplement 06/05/24 12/20/24 History
magnesium hydroxide 400 mg/5 mL 2,400 mg PO DAILYPRN PRN 07/20/24 12/20/24 History
oral suspension (Milk of Magnesia) constipation
polyethylene glycol 3350 17 gram 17 g PO DAILYPRN PRN constipation 07/20/24 12/20/24 History
oral powder packet (Miralax)
zinc oxide 1 ea topical DAILYPRN PRN b/l 10/14/24 12/20/24 History
buttocks, incontinence care
zinc oxide 1 ea topical TID b/l buttocks 10/14/24 12/20/24 History
melatonin 3 mg tablet 3 mg PO HS 12/20/24 12/20/24 History
metformin 1,000 mg tablet 1,000 mg PO BID 12/20/24 12/20/24 History
nystatin 100,000 unit/gram topical 1 applic topical TID 12/20/24 12/20/24 History
powder
sertraline 50 mg tablet 50 mg PO DAILY 12/20/24 12/20/24 History
umeclidinium 62.5 mcg-vilanterol 1 inh inhalation DAILY 12/20/24 12/20/24 History
25 mcg/actuation powdr for
inhalation (Anoro Ellipta)
Review of Systems
-
All other systems: Negative unless noted
Physical Exam
Vital Signs
Temp Pulse Resp BP Pulse Ox
98.3 F 152 27 103/78 93
12/20/24 11:39 12/20/24 14:19 12/20/24 13:30 12/20/24 14:19 12/20/24 13:30
Lab Results
12/20/24 12:51
12/20/24 12:51
Troponin I 0.014 ng/ml 12/20/24 12:51
Physical Exam
General: Well Developed, No Apparent Distress and Comfortable
Respiratory: Clear and Non Labored Respirations
Cardiac: S1/S2 and Regular Rhythm (Tachycardic); Negative Murmur or Peripheral Edema
Impression / Plan
-
79-year-old female with past medical history significant for COPD on 2L baseline, obstructive sleep apnea intolerant to BiPAP, CAD, paroxysmal atrial fibrillation on Eliquis, aortic stenosis, diabetes, hypertension, hyperlipidemia, obesity and
ambulatory dysfunction who presented to [facility] ED for evaluation of tachycardia, found to have atrial flutter with 2:1 AV conduction.
Atrial flutter with RVR
-New this admission. Carries a diagnosis of paroxysmal atrial fibrillation. [id number] (age, female, HTN, DM). She is on Eliquis but does not know if she missed any doses in past 3 weeks. Her retirement confirmed that she has not missed
any doses since December 06.
-Continue IV diltiazem drip though atrial flutter is difficult to rate control. Stop if she has hypotension.
-If she remains in flutter tomorrow, we will perform a ANIKET/DCCV. She is amenable.
-N.p.o. past midnight
-Continue Eliquis 5 mg twice daily
HFpEF, chronic
-TTE 07/20/2024: LVEF 70-75%, moderate LVH, mild/mod (28/15 mmHg)
-Continue Lasix 40 mg daily
Coronary artery disease
-Continue aspirin and statin
Data Reviewed
-
EKG: Tracing Personally Visualized and interpreted, Discussed with Physician and Discussed with Patient
Medical Tests (Nuc Med, Echo etc): Report Reviewed by me, Discussed with Physician and Discussed with Patient
Labs: Labs Reviewed by me and Discussed with Patient
[2024-12-20 18:11] LABS: Magnesium 1.4 mg/dl (1.6-2.3); Phosphorus 4.3 mg/dl (2.5-4.5)
[2024-12-20] MEDS: TYLENOL 650 MG PO (18:20)
--- NOTE | 2024-12-20 19:12 | PTCARENOTE ---
Pt received from ED, quite anxious on arrival , c/o 10/10 headache which she states she gets frequently. Pt given tylenol. Diltiazem infusing at 15mg, telemetry shows atrial flutter mainly @155 with SBP 110. notified, plan to continue
current treatment with ANIKET/CV in am. Pt states she is unaware of this heart rate problem and also seems like a poor historian regarding her other documented health issues. Pt states she is bedbound and incontinent of urine, will turn her Q2 hours
and provide all nursing care.
[2024-12-20 19:58] LABS: Glucose - Point of Care 126 mg/dl (70-99)
[2024-12-20] MEDS: NOVOLOG FLEXPEN-LOW RESISTANCE SC (19:59)
[2024-12-20] MEDS: DESENEX/MITRAZOL/ZEASORB 1 APPLIC TOPICAL ×2 (20:00→22:15)
[2024-12-20] MEDS: COLACE 200 MG PO (20:01)
[2024-12-20] MEDS: PROTONIX 40 MG PO (20:02)
[2024-12-20] MEDS: LOPRESSOR 25 MG PO (20:02)
[2024-12-20] MEDS: ELIQUIS 5 MG PO (20:02)
[2024-12-20] MEDS: MAGNESIUM SULFATE 50 IV (20:03)
[2024-12-20] MEDS: COMPAZINE 5 MG IV (22:12)
[2024-12-20] MEDS: LIPITOR 40 MG PO (22:14)
[2024-12-20] MEDS: MELATONIN 3 MG PO (22:14)
[2024-12-20 22:19] LABS: Glucose - Point of Care 116 mg/dl (70-99)
[2024-12-20] MEDS: LANTUS 0.1 UNITS SC (22:19)
--- NOTE | 2024-12-20 22:48 | PTCARENOTE ---
Assumed care on pt at change of shift, aaox3,able to make needs known. Atrial flutter on the monitor, HR 110-150's, O2 sat 93-94% on 4L via NC, lungs diminished throughout. Pt code status DNR on admission, pt refusing DNR bracelet, stating that she
is full code. Daughter called and confirmed the same. scallop raker CONFIGURATION MANAGEMENT ANALYST made aware and code status changed from DNR to full code. Call borrego within reach, POC ongoing.
[2024-12-20] MEDS: DUONEB 3 ML INH (23:29)
[2024-12-21] VITALS (18 sets, daily range): BP systolic 85–129; BP diastolic 49–113; BMI 33.3
[2024-12-21] MEDS: CARDIZEM 125 IV (04:43)
[2024-12-21 05:10] LABS: Hematocrit 32.7 % (37.0-47.0); Hemoglobin 10.5 g/dL (12.0-16.0); Mean Corp Hgb Conc. 32.1 g/dL (33.0-37.0); Mean Corpuscular Hgb 30.3 pg (27.0-31.0); Mean Corpuscular Volume 94.5 fL (81.0-99.0); Mean Platelet Volume 10.3 fL (7.4-10.4); Platelet Count 246 10^3/uL (130-400); Red Blood Cell Count 3.46 10^6/uL (4.20-5.40); Red Cell Dist. Width 12.7 % (11.5-14.5); White Blood Cell Count 10.1 10^3/uL (4.8-10.8)
[2024-12-21 05:29] LABS: Blood Urea Nitrogen 46 mg/dl (7-17); Calcium 8.8 mg/dl (8.4-10.2); Carbon Dioxide 34 mmol/L (22-30); Chloride 98 mmol/L (98-107); Estimated Creatinine Clearance 41 ml/min; Glucose 132 mg/dl (70-99); Magnesium 1.8 mg/dl (1.6-2.3); Potassium 4.6 mmol/L (3.5-5.1); Sodium 138 mmol/L (135-145); eGFR 50.48
[2024-12-21] MEDS: DUONEB 3 ML INH (06:31)
--- NOTE | 2024-12-21 06:36 | PTCARENOTE ---
Pt incontinent of bladder overnight, refused to get changed until this morning despite encouragement and education provided, also refused T&R, pt educated on skin integrity and risk of pressure wounds. Desenex powder applied to MASD areas under
abdomen folds and groin.
[2024-12-21] MEDS: STRIVERDI RESPIMAT 2 PUFF INH (08:13)
[2024-12-21] MEDS: SPIRIVA RESPIMAT 2.5 MCG 2 PUFF INH (08:13)
[2024-12-21 08:18] LABS: Glucose - Point of Care 151 mg/dl (70-99)
[2024-12-21] MEDS: DESENEX/MITRAZOL/ZEASORB 1 APPLIC TOPICAL ×2 (08:21→18:13)
[2024-12-21] MEDS: PROTONIX 40 MG PO (08:21)
[2024-12-21] MEDS: THERAGRAN 1 TABLET PO (08:22)
[2024-12-21] MEDS: ELIQUIS 5 MG PO (08:22)
[2024-12-21] MEDS: LOPRESSOR 25 MG PO (08:22)
[2024-12-21] MEDS: ZOLOFT 50 MG PO (08:22)
[2024-12-21] MEDS: LASIX 40 MG PO (08:22)
[2024-12-21] MEDS: KCL 10 MEQ PO (08:23)
[2024-12-21] MEDS: LOW STRENGTH ASPIRIN 81 MG PO (08:23)
[2024-12-21] MEDS: NOVOLOG FLEXPEN-LOW RESISTANCE SC ×2 (10:07→18:14)
--- NOTE | 2024-12-21 10:24 | PTCARENOTE ---
pt is aflutter, vss. pt offers no complaints at this time. pt educated on plan of care for the day and pt verbalized understanding. Estela hand running per protocol, see documentation. pt resting in bed comfortably. call borrego within reach.
report called and pt now off unit for procedure.
--- NOTE | 2024-12-21 11:12 | W.PN.CD ---
Today's Communication / Plan
-
She underwent successful ANIKET/DCCV. Now back in sinus rhythm.
She is safe for discharge from a cardiovascular standpoint.
Impression / Plan
-
79-year-old female with past medical history significant for COPD on 2L baseline, obstructive sleep apnea intolerant to BiPAP, CAD, paroxysmal atrial fibrillation on Eliquis, aortic stenosis, diabetes, hypertension, hyperlipidemia, obesity and
ambulatory dysfunction who presented to [facility] ED for evaluation of tachycardia, found to have atrial flutter with 2:1 AV conduction.
Atrial flutter with RVR
-New this admission. Carries a diagnosis of paroxysmal atrial fibrillation. [id number] 5 (age, female, HTN, DM). She is on Eliquis but does not know if she missed any doses in past 3 weeks. Her fci confirmed that she has not missed
any doses since December 06.
-Status post successful ANIKET/DCCV on 12/21/2024. Now in sinus rhythm.
-Continue Eliquis 5 mg twice daily
-Continue metoprolol 25 mg twice daily
HFpEF, chronic
-TTE 07/20/2024: LVEF 70-75%, moderate LVH, mild/mod (28/15 mmHg)
-Continue Lasix 40 mg daily
Coronary artery disease
-Continue aspirin and statin
Subjective: Feels 'fine'
Physical Exam
Vital Signs/Labs
Vital Signs
Temp Pulse Resp BP Pulse Ox
97 F 110 20 107/95 92
12/21/24 07:47 12/21/24 10:00 12/21/24 08:22 12/21/24 09:00 12/21/24 08:22
12/20/24 12/21/24 12/22/24
06:59 06:59 06:59
Actual Weight 187 lb 14.047 oz
12/21/24 04:48
12/21/24 04:48
Magnesium 1.8 mg/dl (1.6-2.3) 12/21/24 04:48
LAB Results
12/20/24
12:51
Troponin I 0.014
Physical Exam
Constitutional: No acute distress and Comfortable
Cardiovascular: Rhythm & rate is regular, Pedal edema is absent, Systolic murmur present and S1S2 is normal
Respiratory: Respiratory effort normal
Data Reviewed
-
Date of Service: December 21, 2024
Medical Decision Making: Reviewed Test Results, Independent Historian Assessment, Test Interpretation and Review of Case with other Provider
EKG: Tracing Personally Visualized and interpreted
Echo: Tracing Personally Visualized and interpreted and Report Reviewed by me
Labs: Labs Reviewed by me
--- NOTE | 2024-12-21 11:37 | W.PN.HOSP.TC ---
Addendum entered and electronically signed by Patel Montelongo MD 12/22/24 17:49:
[id number]
Original Note:
Today's Communication/Plan
-
underwent successful ANIKET/DCCV. Now back in sinus rhythm.
F/u cards outpatient
f/u pcp within 1 week
f/u cbc and bmp in 1 week
Assessment / Plan
Assessment / Plan
General: Well Developed, Well Nourished, No Apparent Distress, Comfortable, Conversant and Morbidly Obese
HEENT: NormoCephalic, Moist mucous membranes, Atraumatic, Nose Appears Normal and Ears Appear Normal
Respiratory: Clear and Non Labored Respirations
Cardiac: S1/S2, Regular Rhythm and Tachycardia
Breast: Deferred by me
GI: Soft, Non Tender, Non Distended and Normal Bowel Sounds; No Organomegaly
Rectal: Deferred by Provider
Genito-urinary: Deferred by me
Musculoskeletal: No Clubbing, No Cyanosis and No Edema
Skin: No Rash
Neuro: Awake, Alert and Nonfocal/grossly intact
Psych: Calm
#dizziness, hypotension, tachycardia likely 2/2 #Atrial Flutter
- IV Cardizem
- resolved s/p cardioversion
- underwent successful ANIKET/DCCV 12/21. Now back in sinus rhythm.
-f/u cards outpt
#COPD on 2L baseline
- continue oxygen, albuterol, DuoNeb and Anoro-Ellipta
#CAD
#hyperlipidemia
- continue aspirin and atorvastatin
#paroxysmal atrial fibrillation on Eliquis
- continue Eliquis
#diabetes
- AccuCheck AC & HS
- SSI
- continue insulin glargine
#hypertension
- continue furosemide,
#obesity
#ambulatory dysfunction
#obstructive sleep apnea intolerant to BiPAP
Code status: DNR
DVT Prophylaxis: Eliquis
More than 30 minutes spent in discharge including
Final examination of the patient
Summarizing hospital stay
Instructions for continuing care to all relevant caregivers
Preparation of discharge records, prescriptions, and referral forms
Total time spent (in minutes): 37
Anticipated Discharge: Today
Subjective/Interval History
-
Date of Service: December 21, 2024
Successful cardioversion this morning, now back in sinus rhythm
Objective Data
-
Labs:
Laboratory Results
12/21/24
04:48
WBC 10.1
Hgb 10.5 L
Hct 32.7 L
Plt Count 246
Sodium 138
Potassium 4.6
Chloride 98
Carbon Dioxide 34 H
BUN 46 H
Creatinine 1.1 H
Glucose 132 H
Calcium 8.8
Vital Signs:
Vital Signs
Temp Pulse Resp BP Pulse Ox
97 F 110 20 107/95 92
12/21/24 07:47 12/21/24 10:00 12/21/24 08:22 12/21/24 09:00 12/21/24 08:22
I&O
12/20/24 12/21/24 12/22/24
06:59 06:59 06:59
Intake Total 420 / 420
Balance 420 / 420
Review of Systems
-
History Source: Patient
All other systems: Not reviewed unless documented
Data Reviewed
-
Labs: Labs Reviewed by me
--- NOTE | 2024-12-21 11:42 | W.DS.TRANS ---
DC Summary - [employer]
-
Discharge Instructions:
Discharge Diagnosis/Procedures Atrial flutter with RVR
successful ANIKET/DCCV on 12/21/2024. Now in sinus
rhythm.
Diet Low Cholesterol,Low Fat
Activity As tolerated
Blood Work cbc and cmp in 1 week with pcp
Instructions:
Stand-Alone Forms:
Changes to Home Medications: No
Discharge Medications:
DC Medications w/original date entered in [employer]
acetaminophen 325 mg tablet 650 mg PO Q6HPRN PRN mild pain 06/05/24
albuterol sulfate 90 mcg/actuation aerosol inhaler 2 puff inhalation R Q6HPRN PRN sob/wheezing 06/05/24
apixaban 5 mg tablet 5 mg PO BID Blood Clot Prevention/Tx 06/05/24
aspirin 81 mg chewable tablet 81 mg PO DAILY Blood Clot Prevention/Tx 06/05/24
atorvastatin 40 mg tablet 40 mg PO HS High Cholesterol 06/05/24
docusate sodium 100 mg capsule 200 mg PO QPM Constipation 06/05/24
ferrous sulfate 325 mg (65 mg iron) tablet 325 mg PO NOON Supplement 06/05/24
furosemide 40 mg tablet 40 mg PO DAILY Fluid Retention/Swelling 06/05/24
insulin glargine 100 unit/mL (3 mL) subcutaneous pen 10 unit SC HS Diabetes 06/05/24
ipratropium 0.5 mg-albuterol 3 mg (2.5 mg base)/3 mL nebulization soln 3 ml inhalation R Q6HPRN PRN sob/wheezing 06/05/24
metoprolol tartrate 25 mg tablet 25 mg PO BID Blood Pressure 06/05/24
pantoprazole 40 mg tablet,delayed release 40 mg PO BID Gastrointestinal Issue 06/05/24
potassium chloride 10 mEq tablet,extended release(part/cryst) 10 meq PO DAILY Electrolyte Repletion 06/05/24
therapeutic multivitamin 1 tab PO DAILY Supplement 06/05/24
magnesium hydroxide 400 mg/5 mL oral suspension (Milk of Magnesia) 2,400 mg PO DAILYPRN PRN constipation 07/20/24
polyethylene glycol 3350 17 gram oral powder packet (Miralax) 17 g PO DAILYPRN PRN constipation 07/20/24
zinc oxide 1 ea topical DAILYPRN PRN b/l buttocks, incontinence care 10/14/24
zinc oxide 1 ea topical TID b/l buttocks 10/14/24
melatonin 3 mg tablet 3 mg PO HS Sleep 12/20/24
metformin 1,000 mg tablet 1,000 mg PO BID Diabetes 12/20/24
nystatin 100,000 unit/gram topical powder 1 applic topical TID Infection 12/20/24
sertraline 50 mg tablet 50 mg PO DAILY Depression 12/20/24
umeclidinium 62.5 mcg-vilanterol 25 mcg/actuation powdr for inhalation (Anoro Ellipta) 1 inh inhalation DAILY Lung/Breathing Issues 12/20/24
Home Medication Changes
NA
Pending Results: No
[2024-12-21 12:18] LABS: Glucose - Point of Care 155 mg/dl (70-99)
[2024-12-21] MEDS: VENTOLIN NEBULES 2.5 MG INH (12:44)
[2024-12-21] MEDS: NOVOLOG FLEXPEN-LOW RESISTANCE 1 UNITS SC (16:47)
[2024-12-21 16:54] LABS: Glucose - Point of Care 165 mg/dl (70-99)
--- NOTE | 2024-12-21 17:38 | PTCARENOTE ---
pt continues to be sr post cv. hr in the 80s, vss. pt offers no complaints at this time. pt resting in bed comfortably. called report to yobany higuera. educated pt on plan of care and pt verbalized understanding. call borrego within reach.
--- NOTE | 2024-12-21 17:56 | CM ---
spoke to pt in room, she is a ltc resident at [facility]. she is agreeable to going back. she is cleared for dc today. ambul arrangenents made . pickle maker at [phone]. simin at [facility] aware.
[2024-12-21] MEDS: COLACE PO (18:14)
--- NOTE | 2024-12-21 18:15 | PTCARENOTE ---
d/c instructions sent to [facility] [place]. report called.
--- NOTE | 2024-12-21 19:08 | PTCARENOTE ---
d/c instructions sent to yobany higuera iv removed by rn. midline removed by VAT team. pt tolerated well. pt left via ambulance.
--- NOTE | 2024-12-21 19:15 | PTCARENOTE ---
Pt d/c back to [facility] via EMS transport ambulance, report given to facility by previous nurse. All personal belongings sent with pt.
[2024-12-22 03:25] LABS: Glucose - Point of Care 260 mg/dl (70-99)
== END 2024-12-21 19:20 ==
LOC: IVU 15:55
PROVIDERS: Nurse Practitioner Family; ADMITTING PHYSICIAN Hospitalist; ATTENDING PHYSICIAN Internal Medicine; CONSULT PHYSICIAN Student in an Organized Health Care Education/Training Program; EMERGENCY PHYSICIAN Emergency Medicine; FAMILY PHYSICIAN Internal Medicine
DX: I48.92 Unspecified atrial flutter (principal); I48.0 Paroxysmal atrial fibrillation; R00.0 Tachycardia, unspecified; I95.9 Hypotension, unspecified; R42 Dizziness and giddiness; I50.32 Chronic diastolic (congestive) heart failure; J44.9 Chronic obstructive pulmonary disease, unspecified; K21.9 Gastro-esophageal reflux disease without esophagitis; G47.33 Obstructive sleep apnea (adult) (pediatric); I25.10 Atherosclerotic heart disease of native coronary artery without angina pectoris; E11.9 Type 2 diabetes mellitus without complications; E78.5 Hyperlipidemia, unspecified; E66.9 Obesity, unspecified; I11.0 Hypertensive heart disease with heart failure; R26.2 Difficulty in walking, not elsewhere classified; D72.829 Elevated white blood cell count, unspecified; I70.0 Atherosclerosis of aorta; E66.01 Morbid (severe) obesity due to excess calories; I35.0 Nonrheumatic aortic (valve) stenosis; I34.81 Nonrheumatic mitral (valve) annulus calcification; Z90.49 Acquired absence of other specified parts of digestive tract; Z90.710 Acquired absence of both cervix and uterus; Z96.641 Presence of right artificial hip joint; Z79.01 Long term (current) use of anticoagulants; Z66 Do not resuscitate; Z79.899 Other long term (current) drug therapy; Z79.84 Long term (current) use of oral hypoglycemic drugs; Z79.82 Long term (current) use of aspirin; Z79.4 Long term (current) use of insulin; Z68.33 Body mass index [BMI] 33.0-33.9, adult
CPT/HCPCS: 80048; 82962; 83036; 83735; 84100; 84132; 84484; 85025; 85027; 87070; 92960; 93005; 93312; 93320; 93325; 94640; 96374; 96375; 96376; 99291; G0378

== ENCOUNTER 2024-12-22 05:55 | Inpatient (IN) | payer MEDICARE, OTHER, SELFPAY ==
[2024-12-22] VITALS (37 sets, daily range): BP systolic 71–166; BP diastolic 45–126; PULSE 2–112; BMI 35.0; BMI 33.4
--- NOTE | 2024-12-22 03:32 | ED.GENMED ---
History of Present Illness
<Armando Bryant Jr., PA-C - Last Filed: 12/22/24 23:03>
General
Chief Complaint: Breathing Problem
Source: ambulance crew
Exam Limitations: clinical condition
Time Seen by Provider: 12/22/24 03:20
Nursing documentation reviewed up to this point in time: agreed with
History of Present Illness
History of Present Illness:
79-year-old female past medical history of diabetes, recent a flutter recently cardioverted a few days ago, hypertension, COPD CHRISTIANO presenting to the emergency department today with concerns of worsening breath at her nursing facility. Also
lethargic. According to EMS on arrival to the nursing facility her pulse ox 40s on nasal cannula. Was started on nonrebreather and given breathing treatment with pulse ox into the mid 90s. Patient minimally responsive verbally.
Past History
<Armando Bryant Jr., PA-C - Last Filed: 12/22/24 23:03>
Past History
ED Past Medical History: Arrthythmia, CHF, COPD and GERD
ED Past Surgical History: Appendectomy, Gynecological (Hysterectomy) and Orthopedic (Right hip replacement)
Social History
Living: correction
Review of Systems
<Armando Bryant Jr., PA-C - Last Filed: 12/22/24 23:03>
Review of Systems
Allergies reviewed?: Yes
All Other Systems: ROS reviewed and negative except as documented in HPI and ROS
Phy Exam
<HELENA Sher Jr. Last Filed: 12/22/24 23:03>
Physical Exam
Physical Exam:
GENERAL: Alert with verbal stimuli,
EYE: pupils equal and reactive
NECK: Supple, no significant adenopathy.
ENT: o/p clr, mmm.
CARDIAC: Regular rate and rhythm .
LUNGS: Rhonchi to the lower lobe bilaterally otherwise clear lungs
ABDOMEN: Soft, without focal tenderness, no r/g, no cvat
NEUROLOGICAL: Alert and oriented, no focal neuro deficits
SKIN: Warm and dry, skin intact.
MUSCULOSKELETAL: No edema, well perfused.
PSYCH: Minimal verbal responses
Scores
<Armando Bryant Jr., PA-C - Last Filed: 12/22/24 23:03>
Heart Failure Risk
Heart Failure Risk Score: Not Applicable
Course
<Armando Bryant Jr., PA-C - Last Filed: 12/22/24 23:03>
Orders/Labs/Results
Orders:
Orders
12/22/24 03:24
Cardiac Monitoring- Treatment ONCE
12/22/24 03:25
Electrocardiogram (*1) Stat
Reason for Study: Other
Other Reason for Exam: pneumonia
EKG- Treatment ONCE
CR Chest Portable - 1 View Urgent
Comment:
Reason For Exam: lower lung rhonchi
Reason Study Needs to be Portable: Patient Unstable
12/22/24 04:02
COVID-19 Antigen Urgent
Source: Nasal Swab
Complete Blood Count/With Diff Urgent
Comprehensive Metabolic Panel Urgent
NT-proBNP Urgent
Triglycerides Urgent
Comment: ADDON
Troponin I Urgent
Venous Blood Gas Urgent
%Oxygen/Room Air: 95 nNRB
Influenza A+B Rapid Molecular Urgent
MALLORY Source: Nasal Swab
Specimen Description:
12/22/24 04:03
Lactic Acid Q4H
Comment: CANCEL 2nd LACTIC ACID IF 1st LACTIC ACID IS LESS THAN 2
12/22/24 04:22
Cefepime HCl [Maxipime] 2,000 mg IV NOW STA
12/22/24 05:44
Admit/Transfer Patient As Directed
Co-Sign Provider:
Level of Care: Inpatient admission
Assign to:: IMU- Intermediate Care
Physician / Group: Avi
Diagnosis: Influenza, Pneumonia, Acute Hypercapnic / Hypoxemic Respiratory Failure
Reason for Hospitalization: Influenza, Pneumonia, Acute Hypercapnic / Hypoxemic Respiratory Failure
Expected length of stay greater than two midnights?: Yes
ELOS- Estimated Length of Stay in days: 4
I certify the patient meets the requirements for IP care: Yes
PRN Pain Medication Management As Directed
May give lesser potent ordered pain med per pt: Yes
preference::
Protocol:: Medication orders for pain may be administered in a
manner that supports deferring to patient preference
when the pt is:
- Requesting an ordered lesser potent pain medication.
Least to most potent pain medications are defined
as: acetaminophen < NSAID < tramadol < opioids
(morphine, oxycodone, hydromorphone).
- Requesting a lesser dose of the same medication IF
ORDERED.
- Requesting a less intrusive route of administration
if both routes are prescribed by the provider (PO <
IV).
12/22/24 05:46
Code Status As Directed
Resuscitation Status: Full Code
12/22/24 Breakfast
1800 calorie (15 carb) Diabetic
At Your Request: Full Participation
Oral Supplement (If unsure of flavor order apple or vanilla): Glucerna
Supplement Frequency: Daily
12/22/24 07:32
Acetaminophen [Tylenol] 650 mg PO Q4HPRN PRN
Albuterol Nebs [Ventolin Nebules] 2.5 mg INH R Q4HPRN PRN
Dextrose 50%-Water [Dextrose 50% Syringe] 12.5 grams IV [id number] PRN
Glucagon [GlucaGen] 1 mg IM PRN PRN
Insulin Aspart Corrective Mod [Novolog Flexpen-Moderate Resistance] See Protocol SC AC
Polyethylene Glycol Powder [Miralax] 17 grams PO DAILYPRN PRN constipation
12/22/24 07:32
Activity As Directed
Activity Level: Ambulate
With Assistance
Bedside Glucose Monitoring As Directed
Frequency: AC&HS
Additional Instructions:: Change to q6h if pt on TPN, tube feeding or not eating
EKG with chest pain [ECG as needed] As Directed
ECG as needed for:: Chest Pain
I/O [Intake/ Output] As Directed
Frequency: Per unit guidelines
Precautions As Directed
Type of Precautions: Droplet
Vital Signs As Directed
Frequency: Per unit guidelines
Weight As Directed
Frequency: Daily
Bipap [RESP] Routine
Patient to use own unit?: No
Inspiratory Pressure (cm H2O): 15
Expiratory Pressure (cm H2O): 6
12/22/24 08:00
Apixaban [Eliquis] 5 mg PO BID
Aspirin Chewable [Low Strength Aspirin] 81 mg PO DAILY
Furosemide [Lasix] 40 mg PO DAILY
Ipratropium/Albuterol Sulfate [Duoneb] 3 ml INH R QID
Metoprolol [Lopressor] 25 mg PO BID
Miconazole Nitrate [Desenex/Mitrazol/Zeasorb] 1 applic TOPICAL TID
Pantoprazole [Protonix] 40 mg PO BID
Potassium Chloride [KCl] 10 meq PO DAILY
Sertraline HCl [Zoloft] 50 mg PO DAILY
12/22/24 08:04
Oseltamivir Phosphate [Tamiflu] 75 mg PO NOW STA
12/22/24 10:00
Piperacillin/Tazo 3.375 Gram [Zosyn] 3.375 gram in 50 ml IV Q6H
12/22/24 22:00
Atorvastatin [Lipitor] 40 mg PO HS
12/23/24 06:00
EKG [Electrocardiogram (*1)] IN AM
Reason for Study: Chest Pain
Basic Metabolic Panel IN AM
Complete Blood Count/No Diff IN AM
Glycohemoglobin (HgbA1c) IN AM
Abnormal Lab Results
12/22/24
04:02
WBC 16.7 H 10^3/uL
(4.8-10.8)
RBC 3.75 L 10^6/uL
(4.20-5.40)
Hgb 11.4 L g/dL
(12.0-16.0)
Hct 36.1 L %
(37.0-47.0)
MCHC 31.6 L g/dL
(33.0-37.0)
Abs Immat Gran (auto) 0.1 H 10^3/uL
(0-0.05)
Absolute Neuts (auto) 13.6 H 10^3/uL
(1.4-6.5)
Absolute Monos (auto) 0.9 H 10^3/uL
(0.1-0.6)
Immature Gran % 0.7 H %
(0-0.5)
Neutrophils % 81.0 H %
(42.2-75.2)
Lymphocytes % 10.8 L %
(20.5-51.1)
VBG pH 7.11 L*
(7.32-7.43)
VBG pCO2 113 H* mmHg
(35-48)
VBG pO2 149 H mmHg
(30-50)
VBG HCO3 35.9 H mmol/L
(22-27)
Carbon Dioxide 35 H mmol/L
(22-30)
BUN 39 H mg/dl
(7-17)
Glucose 258 H mg/dl
(70-99)
12/22/24 04:02
12/22/24 04:02
Vital Signs
Initial and Last Documented VS:
Initial Vital Signs
Pulse Resp Pulse Ox
112 16 89
12/22/24 03:21 12/22/24 03:21 12/22/24 03:21
Last Documented Vital Signs
Temp Pulse Resp BP Pulse Ox
98.7 F 72 20 88/60 97
12/22/24 19:15 12/22/24 23:00 12/22/24 23:00 12/22/24 20:46 12/22/24 23:00
<Edd Cooper, DO - Last Filed: 12/22/24 04:33>
Orders/Labs/Results
Orders:
Orders
12/22/24 03:24
Cardiac Monitoring- Treatment ONCE
12/22/24 03:25
Electrocardiogram (*1) Stat
Reason for Study: Other
Other Reason for Exam: pneumonia
EKG- Treatment ONCE
CR Chest Portable - 1 View Urgent
Comment:
Reason For Exam: lower lung rhonchi
Reason Study Needs to be Portable: Patient Unstable
12/22/24 04:02
COVID-19 Antigen Urgent
Source: Nasal Swab
Complete Blood Count/With Diff Urgent
Comprehensive Metabolic Panel Urgent
NT-proBNP Urgent
Triglycerides Urgent
Comment: ADDON
Troponin I Urgent
Venous Blood Gas Urgent
%Oxygen/Room Air: 95 nNRB
Influenza A+B Rapid Molecular Urgent
MALLORY Source: Nasal Swab
Specimen Description:
12/22/24 04:03
Lactic Acid Q4H
Comment: CANCEL 2nd LACTIC ACID IF 1st LACTIC ACID IS LESS THAN 2
12/22/24 04:22
Cefepime HCl [Maxipime] 2,000 mg IV NOW STA
12/22/24 05:44
Admit/Transfer Patient As Directed
Co-Sign Provider:
Level of Care: Inpatient admission
Assign to:: IMU- Intermediate Care
Physician / Group: Avi
Diagnosis: Influenza, Pneumonia, Acute Hypercapnic / Hypoxemic Respiratory Failure
Reason for Hospitalization: Influenza, Pneumonia, Acute Hypercapnic / Hypoxemic Respiratory Failure
Expected length of stay greater than two midnights?: Yes
ELOS- Estimated Length of Stay in days: 4
I certify the patient meets the requirements for IP care: Yes
PRN Pain Medication Management As Directed
May give lesser potent ordered pain med per pt: Yes
preference::
Protocol:: Medication orders for pain may be administered in a
manner that supports deferring to patient preference
when the pt is:
- Requesting an ordered lesser potent pain medication.
Least to most potent pain medications are defined
as: acetaminophen < NSAID < tramadol < opioids
(morphine, oxycodone, hydromorphone).
- Requesting a lesser dose of the same medication IF
ORDERED.
- Requesting a less intrusive route of administration
if both routes are prescribed by the provider (PO <
IV).
12/22/24 05:46
Code Status As Directed
Resuscitation Status: Full Code
12/22/24 Breakfast
1800 calorie (15 carb) Diabetic
At Your Request: Full Participation
Oral Supplement (If unsure of flavor order apple or vanilla): Glucerna
Supplement Frequency: Daily
12/22/24 07:32
Acetaminophen [Tylenol] 650 mg PO Q4HPRN PRN
Albuterol Nebs [Ventolin Nebules] 2.5 mg INH R Q4HPRN PRN
Dextrose 50%-Water [Dextrose 50% Syringe] 12.5 grams IV [id number] PRN
Glucagon [GlucaGen] 1 mg IM PRN PRN
Insulin Aspart Corrective Mod [Novolog Flexpen-Moderate Resistance] See Protocol SC AC
Polyethylene Glycol Powder [Miralax] 17 grams PO DAILYPRN PRN constipation
12/22/24 07:32
Activity As Directed
Activity Level: Ambulate
With Assistance
Bedside Glucose Monitoring As Directed
Frequency: AC&HS
Additional Instructions:: Change to q6h if pt on TPN, tube feeding or not eating
EKG with chest pain [ECG as needed] As Directed
ECG as needed for:: Chest Pain
I/O [Intake/ Output] As Directed
Frequency: Per unit guidelines
Precautions As Directed
Type of Precautions: Droplet
Vital Signs As Directed
Frequency: Per unit guidelines
Weight As Directed
Frequency: Daily
Bipap [RESP] Routine
Patient to use own unit?: No
Inspiratory Pressure (cm H2O): 15
Expiratory Pressure (cm H2O): 6
12/22/24 08:00
Apixaban [Eliquis] 5 mg PO BID
Aspirin Chewable [Low Strength Aspirin] 81 mg PO DAILY
Furosemide [Lasix] 40 mg PO DAILY
Ipratropium/Albuterol Sulfate [Duoneb] 3 ml INH R QID
Metoprolol [Lopressor] 25 mg PO BID
Miconazole Nitrate [Desenex/Mitrazol/Zeasorb] 1 applic TOPICAL TID
Pantoprazole [Protonix] 40 mg PO BID
Potassium Chloride [KCl] 10 meq PO DAILY
Sertraline HCl [Zoloft] 50 mg PO DAILY
12/22/24 08:04
Oseltamivir Phosphate [Tamiflu] 75 mg PO NOW STA
12/22/24 10:00
Piperacillin/Tazo 3.375 Gram [Zosyn] 3.375 gram in 50 ml IV Q6H
12/22/24 22:00
Atorvastatin [Lipitor] 40 mg PO HS
12/23/24 06:00
EKG [Electrocardiogram (*1)] IN AM
Reason for Study: Chest Pain
Basic Metabolic Panel IN AM
Complete Blood Count/No Diff IN AM
Glycohemoglobin (HgbA1c) IN AM
Abnormal Lab Results
12/22/24
04:02
WBC 16.7 H 10^3/uL
(4.8-10.8)
RBC 3.75 L 10^6/uL
(4.20-5.40)
Hgb 11.4 L g/dL
(12.0-16.0)
Hct 36.1 L %
(37.0-47.0)
MCHC 31.6 L g/dL
(33.0-37.0)
Abs Immat Gran (auto) 0.1 H 10^3/uL
(0-0.05)
Absolute Neuts (auto) 13.6 H 10^3/uL
(1.4-6.5)
Absolute Monos (auto) 0.9 H 10^3/uL
(0.1-0.6)
Immature Gran % 0.7 H %
(0-0.5)
Neutrophils % 81.0 H %
(42.2-75.2)
Lymphocytes % 10.8 L %
(20.5-51.1)
VBG pH 7.11 L*
(7.32-7.43)
VBG pCO2 113 H* mmHg
(35-48)
VBG pO2 149 H mmHg
(30-50)
VBG HCO3 35.9 H mmol/L
(22-27)
Carbon Dioxide 35 H mmol/L
(22-30)
BUN 39 H mg/dl
(7-17)
Glucose 258 H mg/dl
(70-99)
12/22/24 04:02
12/22/24 04:02
Vital Signs
Initial and Last Documented VS:
Initial Vital Signs
Pulse Resp Pulse Ox
112 16 89
12/22/24 03:21 12/22/24 03:21 12/22/24 03:21
Last Documented Vital Signs
Temp Pulse Resp BP Pulse Ox
98.7 F 72 20 88/60 97
12/22/24 19:15 12/22/24 23:00 12/22/24 23:00 12/22/24 20:46 12/22/24 23:00
<Armando Bryant Jr., PA-C - Last Filed: 12/22/24 23:03>
MDM/Problems Addressed
MDM/Problems Addressed:
79-year-old female presenting to the emergency department today with concerns of shortness of breath respiratory distress and nursing facility. Was recently here and had a ANIKET with cardioversion 2 days ago. Here patient temperature of 95.4 was
initially tachycardic blood pressure mildly elevated. Here she was responsive to verbal stimuli answering questions with one-word answers. Pulse ox was stabilized in the mid 90s on nonrebreather. She was started on BiPAP to help facilitate
breathing. Labs showing elevated white count of 16.7 VBG of 7.11. Patient is tolerating BiPAP well plan to trial this at this point. Otherwise no significant elevation in troponin BNP was elevated to 2690. Patient was positive for the flu.
Additionally chest x-ray with possible consolidation and possible evidence of pneumonia though probably the x-ray is low. Patient was started on antibiotic and otherwise will be admitted for further treatment and monitoring.
<Armando Bryant Jr., PA-C - Last Filed: 12/22/24 23:03>
*Critical Care Note
Total Time (30-74mins, 75-104mins- exclusive of procedures): Not Applicable
ED Attending Note
<Armando Bryant Jr., PA-C - Last Filed: 12/22/24 23:03>
-
Portions of this chart may have been created with voice recognition software.� Occasional wrong word or��sound alike� substitutions may have occurred due to the inherent limitations of voice recognition software.
<Edd Cooper DO - Last Filed: 12/22/24 04:33>
ED Attending Note
Patient seen and examined by attending physician: Yes
ED Attending Note:
I have reviewed and agree with history and treatment plan by Blaine Bryant. My exam revealed 79-year-old female in respiratory distress on nonrebreather transitioned to BiPAP rhonchi and rales at bases right greater than left ill-appearing suspect
right-sided pneumonia in the setting of heart failure. Admit to hospitalist Vidal villegas ordered
Discharge Plan
Departure
Patient Disposition: Admit
Date of Disposition: 12/22/24
Time of Disposition: 05:47
Admit to: Telemetry
Admit to doctor: Avi
Presentation/result/management discussed w/ accepting MD/DO: Hospitalist
Patient with high blood pressure during this ER visit?: No
Condition: Fair
Covid-19: Not Applicable
Discharge Problem:
Influenza, Pneumonia, Hypoxemia
Interventions
Interventions:
*Risk Screen - Suicide Last Done: 12/22/24 07:39
*General Assessment Last Done: 12/22/24 03:26
*Neglect/Abuse Screening Last Done: 12/22/24 07:39
*Nursing Disposition Last Done: 12/22/24 06:46
ED- Cardiac Assessment Last Done: 12/22/24 04:37
ED- Pulmonary Assessment Last Done: 12/22/24 04:37
Discharge Date and Time
Discharge Date/Time: 12/22/24 07:48
--- NOTE | 2024-12-22 04:12 | EDRN ---
warm blankets applied to pt.
[2024-12-22 04:14] LABS: Venous Blood Gas B.E. 3.2 mmol/L (-4 to +4); Venous Blood Gas HCO3 35.9 mmol/L (22-27); Venous Blood Gas O2 Sat % 99.8 %; Venous Blood Gas pO2 149 mmHg (30-50)
[2024-12-22 04:15] LABS: % Basophils 0.6 % (0-2); % Eosinophils 1.6 % (0-6); % Immature Granulocytes 0.7 % (0-0.5); % Lymphocytes 10.8 % (20.5-51.1); % Monocytes 5.3 % (1.7-9.3); Absolute Basophils 0.1 10^3/uL (0-0.2); Absolute Eosinophils 0.3 10^3/uL (0-0.7); Absolute Immature Granulocytes 0.1 10^3/uL (0-0.05); Absolute Lymphocytes 1.8 10^3/uL (1.2-3.4); Absolute Monocytes 0.9 10^3/uL (0.1-0.6); Absolute Neutrophils 13.6 10^3/uL (1.4-6.5); Hematocrit 36.1 % (37.0-47.0); Hemoglobin 11.4 g/dL (12.0-16.0); Mean Corp Hgb Conc. 31.6 g/dL (33.0-37.0); Mean Corpuscular Hgb 30.4 pg (27.0-31.0); Mean Corpuscular Volume 96.3 fL (81.0-99.0); Nucleated Red Blood Cells % 0 %; Platelet Count 333 10^3/uL (130-400); Red Blood Cell Count 3.75 10^6/uL (4.20-5.40); Red Cell Dist. Width 12.7 % (11.5-14.5); White Blood Cell Count 16.7 10^3/uL (4.8-10.8)
[2024-12-22 04:17] LABS: Venous Blood Gas O2 Therapy 95 nNRB
[2024-12-22 04:18] LABS: Venous Blood Gas pCO2 113 mmHg (35-48); Venous Blood Gas pH 7.11 (7.32-7.43)
[2024-12-22 04:30] LABS: COVID-19 Antigen Negative (Negative)
[2024-12-22] MEDS: MAXIPIME 2000 MG IV (04:30)
[2024-12-22 04:38] LABS: Lactic Acid 1.1 mmol/L (0.7-2.0)
[2024-12-22 04:40] LABS: ALT (SGPT) 28 U/L (0-35); AST (SGOT) 34 U/L (14-36); Alkaline Phosphatase 68 U/L (38-126); Blood Urea Nitrogen 39 mg/dl (7-17); Calcium 9.4 mg/dl (8.4-10.2); Carbon Dioxide 35 mmol/L (22-30); Chloride 100 mmol/L (98-107); Estimated Creatinine Clearance 52 ml/min; Glucose 258 mg/dl (70-99); Sodium 144 mmol/L (135-145); Total Bilirubin 0.9 mg/dl (0.2-1.3); Total Protein 7.2 g/dl (6.3-8.2); eGFR > 60.00
[2024-12-22 05:06] LABS: NT-proBNP 2690 pg/ml; Troponin I 0.025 ng/ml
--- NOTE | 2024-12-22 05:49 | HPS.HSE ---
Family Physician
-
Family Physician: Mark Mo
Chief Complaint
-
SOB
History of Present Illness
Patient is an 79y F with PMH significant for COPD, chronic hypoxemia on home O2 and recent admission for atrial flutter who presents to ED complaining of SOB. History obtained from patient, ED staff and [facility] record. Patient was recently admitted
from 12/20 - 12/21 secondary to uncontrolled atrial flutter. She underwent ANIKET / DCCV on 12/21 and regained NSR. Patient denied any complaints throughout that hospital stay.
This evening, she complained of SOB to [facility] staff. Patient was noted to be diaphoretic and had hacking cough.
Oxygen saturations were reportedly low at [facility] on her usual O2 supplementation.
Patient was sent to the ED for further evaluation and treatment.
In the ED, patient is noted to be positive for influenza B. VBG shows acute hypercapnia / respiratory acidosis and patient was started on BiPAP.
Medical History
Past Medical History
Past Medical History: Reports Other
Additional Past Medical History:
COPD on 2L baseline
obstructive sleep apnea intolerant to BiPAP
CAD
paroxysmal atrial fibrillation / flutter on Eliquis
diabetes
hypertension
hyperlipidemia
obesity
ambulatory dysfunction
Past Surgical History: Reports Other
Additional Past Surgical History:
Appendectomy
Hysterectomy
Right hip replacement
ANIKET / DCCV (12/21/24)
Social History
Tobacco: Non-smoker
Alcohol: None
Drug: None
Living: [facility]
Family History
Family History: Not pertinent
Allergies / Home Medications
Allergies reflects when Allergies were last updated in [employer].
Home Medications with original date entered in [employer]
Allergy/Medication List:
Allergies
Allergy/AdvReac Type Severity Reaction Status Date / Time
No Known Allergies Allergy Verified 12/20/24 11:38
Home Medications
acetaminophen 325 mg tablet 650 mg PO Q6HPRN PRN mild pain 06/05/24
albuterol sulfate 90 mcg/actuation aerosol inhaler 2 puff inhalation R Q6HPRN PRN sob/wheezing 06/05/24
apixaban 5 mg tablet 5 mg PO BID Blood Clot Prevention/Tx 06/05/24
aspirin 81 mg chewable tablet 81 mg PO DAILY Blood Clot Prevention/Tx 06/05/24
atorvastatin 40 mg tablet 40 mg PO HS High Cholesterol 06/05/24
docusate sodium 100 mg capsule 200 mg PO QPM Constipation 06/05/24
ferrous sulfate 325 mg (65 mg iron) tablet 325 mg PO NOON Supplement 06/05/24
furosemide 40 mg tablet 40 mg PO DAILY Fluid Retention/Swelling 06/05/24
insulin glargine 100 unit/mL (3 mL) subcutaneous pen 10 unit SC HS Diabetes 06/05/24
ipratropium 0.5 mg-albuterol 3 mg (2.5 mg base)/3 mL nebulization soln 3 ml inhalation R Q6HPRN PRN sob/wheezing 06/05/24
metoprolol tartrate 25 mg tablet 25 mg PO BID Blood Pressure 06/05/24
pantoprazole 40 mg tablet,delayed release 40 mg PO BID Gastrointestinal Issue 06/05/24
potassium chloride 10 mEq tablet,extended release(part/cryst) 10 meq PO DAILY Electrolyte Repletion 06/05/24
therapeutic multivitamin 1 tab PO DAILY Supplement 06/05/24
magnesium hydroxide 400 mg/5 mL oral suspension (Milk of Magnesia) 2,400 mg PO DAILYPRN PRN constipation 07/20/24
polyethylene glycol 3350 17 gram oral powder packet (Miralax) 17 g PO DAILYPRN PRN constipation 07/20/24
melatonin 3 mg tablet 3 mg PO HS Sleep 12/20/24
metformin 1,000 mg tablet 1,000 mg PO BID Diabetes 12/20/24
nystatin 100,000 unit/gram topical powder 1 applic topical TID Infection 12/20/24
sertraline 50 mg tablet 50 mg PO DAILY Depression 12/20/24
umeclidinium 62.5 mcg-vilanterol 25 mcg/actuation powdr for inhalation (Anoro Ellipta) 1 inh inhalation DAILY Lung/Breathing Issues 12/20/24
Review of Systems
-
History Source: Patient
A 12 point ROS was completed and negative except as noted: Yes
Constitutional: Reports Fatigue; Denies Fever or Chills
Respiratory: Reports Cough and Trouble Breathing
Cardiac: Reports Diaphoresis; Denies Chest Pain or Palpitations
Abdomen/GI: Denies Abdominal Pain, Nausea, Vomiting or Diarrhea
: Denies Dysuria or Frequency
Musculoskeletal: Denies Joint Pain or Edema
Neurological: Denies Dizzy or Headache
Physical Exam
Vital Signs
Vital Signs
Temp Pulse Resp BP Pulse Ox
95.4 F L 92 23 111/56 96
12/22/24 04:10 12/22/24 05:00 12/22/24 05:00 12/22/24 05:00 12/22/24 05:00
Physical Exam
General: Other (79y F on BiPAP. Awakens to voice. Follows commands.)
HEENT: Moist mucous membranes and PERRLA
Respiratory: Other (Decreased at bases bilaterally - poor effort. No wheezes.)
Cardiac: S1/S2, Tachycardia and Murmur (II/ JAVAD)
GI: Soft, Non Tender, Non Distended and Normal Bowel Sounds
Musculoskeletal: No Clubbing, No Cyanosis and No Edema
Neuro: AO x 3
Laboratory Results
-
12/22/24 04:02
12/22/24 04:02
Laboratory Results
Lactic Acid 1.1 mmol/L (0.7-2.0) 12/22/24 04:03
Total Bilirubin 0.9 mg/dl (0.2-1.3) 12/22/24 04:02
AST 34 U/L (14-36) 12/22/24 04:02
ALT 28 U/L (0-35) 12/22/24 04:02
Alkaline Phosphatase 68 U/L (38-126) 12/22/24 04:02
Troponin I 0.025 ng/ml 12/22/24 04:02
Impression/Plan
-
A/P: Patient is an 79y F with PMH significant for COPD, chronic hypoxemic respiratory failure on home O2 and recent admission for A-Flutter requiring ANIKET / DCCV on 12/21 who presents to ED c/o SOB.
Influenza B
Pneumonia (viral +/- bacterial component)
Acute on Chronic Hypoxemic and Hypercapnic Respiratory Failure secondary to the above
- Admit to IMU for further evaluation and treatment.
- Continue BiPAP support for now and repeat ABG later this AM to check for improvement.
- Begin Tamiflu. Cover with empiric IV abx as well given recent hospitalization / severity of illness / etc.
- Follow temperature curve. Monitor for clinical improvement.
- Follow proper precautions.
- Wean O2 support back to usual 2 lpm as able.
Paroxysmal A-Fib / Flutter
s/p ANIKET / DCCV 12/21/24
- Stable. Remains in sinus with PACs at present.
- Continue current med regimen including Eliquis for stroke risk reduction.
ASCVD
Chronic HFpEF
- Stable. Continue usual diuretic regimen.
- Follow I/Os, daily weights, etc.
- Continue ASA, statin, etc.
DM-II
- Stable. Continue basal insulin + SSI as needed.
CHRISTIANO
COPD
- Treat acute respiratory decompensation as noted above.
- Patient typically intolerant of PAP therapy - though seems to be tolerating BiPAP thus far in the ED.
- Continue inhaled medications.
DVT Prophylaxis: On Eliquis
Code Status: Full
[2024-12-22] MEDS: DUONEB 3 ML INH ×4 (07:44→20:00)
[2024-12-22 08:20] LABS: B.E. 9.1 mmol/L; HCO3 38.5 mmol/L (21-28); O2 Saturation % 96.2 % (94-98); PO2 73 mmHg (83-108); pH 7.28 (7.35-7.45)
[2024-12-22 08:22] LABS: PCO2 82 mmHg (32-35)
[2024-12-22 08:53] LABS: Glucose - Point of Care 153 mg/dl (70-99)
[2024-12-22] MEDS: DESENEX/MITRAZOL/ZEASORB 1 APPLIC TOPICAL ×3 (09:30→21:38)
[2024-12-22] MEDS: NOVOLOG FLEXPEN-MODERATE RESISTANCE 1 UNITS SC (09:30)
[2024-12-22] MEDS: LASIX 40 MG IV (09:44)
[2024-12-22] MEDS: ZOSYN 50 IV ×3 (09:44→21:38)
--- NOTE | 2024-12-22 10:32 | PTCARENOTE ---
Received patient on admission from ED via stretcher on bipap at approximately 07:50. Transferred to bed x4 assist. Patient not responding verbally, occasionally will moan as a response to touch. Temp 95 per tool grinder RN; ED RN informed this nurse
that repeat was 96. This nurse rechecked retal temp after getting patient into bed: 97.2. On arrival respiratory therapist notified this RN that patient's pH was 7.11 on VBG drawn in ED prior to bipap. Reviewed previous admission (was d/c'd
yesterday) patient was noted to originally be DNR then switched to Full Code with note that it was confirmed with daughter patient is full code. This nurse sent TT to Dr Montelongo then called via TT. Order given to draw stat ABG: resp therapist
completed. Repeat pH 7.28. RT increased bipap; see documentation for setting. Dr Montelongo made aware patient unable to take po meds. Ok to keep patient in IMU at this time and change VBG draw time to 14:00.
[2024-12-22 13:06] LABS: Urine Albumin Negative (Neg - Trace); Urine Bilirubin Negative (Negative); Urine Character Clear (Clear); Urine Color Yellow; Urine Glucose Negative (Negative); Urine Ketone Negative (Negative); Urine Leukocyte Negative (Negative); Urine Nitrite Negative (Negative); Urine Occult Blood Negative (Negative); Urine Specific Gravity 1.015 (<1.030); Urine Urobilinogen Negative (Neg - 1+)
[2024-12-22] MEDS: NOVOLOG FLEXPEN-MODERATE RESISTANCE SC ×4 (13:31→23:21)
[2024-12-22 13:40] LABS: Glucose - Point of Care 108 mg/dl (70-99)
--- NOTE | 2024-12-22 13:44 | PTCARENOTE ---
Patient to CT scan accompanied by this RN and RT. Dr Montelongo notified via TT scan complete.
--- NOTE | 2024-12-22 13:52 | PTCARENOTE ---
Daughter at bedside requesting so speak with physician. Daughter states that patient has a history of her CO2 being high d/t patient not wearing bipap. Also states patient has history of afib and that this past admission patient had been in afib.
Jayda notified via TT; responded he will call the daughter.
[2024-12-22 14:59] LABS: Venous Blood Gas HCO3 41.3 mmol/L (22-27); Venous Blood Gas O2 Sat % 99.8 %; Venous Blood Gas pH 7.27 (7.32-7.43); Venous Blood Gas pO2 118 mmHg (30-50)
[2024-12-22 15:00] LABS: Venous Blood Gas pCO2 90 mmHg (35-48)
--- NOTE | 2024-12-22 15:15 | W.PN.HOSP.TC ---
Today's Communication/Plan
-
duonebs
bipap titration
iv steroids
abx
tamflu
GOC convo
Assessment / Plan
Assessment / Plan
A/P: Patient is an 79y F with PMH significant for COPD, chronic hypoxemic respiratory failure on home O2 and recent admission for A-Flutter requiring ANIKET / DCCV on 12/21 who presents to ED c/o SOB.
Influenza B
Pneumonia (viral +/- bacterial component)
Acute on Chronic Hypoxemic and Hypercapnic Respiratory Failure secondary to the above
COPD exacerbation
- Admit to IMU for further evaluation and treatment.
- Continue BiPAP support for now; Adjust settings to 20/8
- Begin Tamiflu. Cover with empiric IV abx as well given recent hospitalization / severity of illness / etc.
- Follow temperature curve. Monitor for clinical improvement.
- Follow proper precautions.
- Wean O2 support back to usual 2 lpm as able.
- Initiative IV steroids
- Duonebs
Paroxysmal A-Fib / Flutter
s/p ANIKET / DCCV 12/21/24
- Stable. Remains in sinus with PACs at present.
- Continue current med regimen including Eliquis for stroke risk reduction.
ASCVD
Chronic HFpEF
- Stable. Continue usual diuretic regimen.
- Follow I/Os, daily weights, etc.
- Continue ASA, statin, etc.
DM-II
- Stable. Continue basal insulin + SSI as needed.
CHRISTIANO
COPD
- Treat acute respiratory decompensation as noted above.
- Patient typically intolerant of PAP therapy - though seems to be tolerating BiPAP thus far
- Continue inhaled medications upon dc
DVT Prophylaxis: On Eliquis
Code Status: Full
Total time spent on today's encounter was 50 minutes which included time spent in counseling the patient/family regarding diagnosis and treatment plan as listed above, goals of care, and symptom management. Case was discussed with nursing staff,
specialists, and care coordinators/case management. All labs and imaging personally reviewed by me. Remainder the time spent in detailed review of previous records, lab data, imaging, and other medical provider documentation.
Anticipated Discharge: > 48 hours
Subjective/Interval History
-
Date of Service: December 22, 2024
Somnolent today, hypercarbic
Objective Data
-
Labs:
Laboratory Results
12/22/24 12/22/24
04:02 08:09
WBC 16.7 H
Hgb 11.4 L
Hct 36.1 L
Plt Count 333 D
HCO3 38.5 H
Sodium 144
Potassium 4.0
Chloride 100
Carbon Dioxide 35 H
BUN 39 H
Creatinine 0.9
Glucose 258 H
Calcium 9.4
Total Bilirubin 0.9
AST 34
ALT 28
Alkaline Phosphatase 68
Vital Signs:
Vital Signs
Temp Pulse Resp BP Pulse Ox
97.5 F 115 17 104/52 100
12/22/24 09:14 12/22/24 14:00 12/22/24 14:00 12/22/24 14:00 12/22/24 14:35
Review of Systems
-
History Source: Patient
All other systems: Not reviewed unless documented
Physical Exam
-
General: No Apparent Distress
HEENT: Normocephalic and Atraumatic
Respiratory: Negative Wheezes
Cardiac: Regular Rhythm and S1/S2
GI: Soft
Genito-urinary: No Costovertebral Tender
Neuro: AO x 3
Psych: Calm
Data Reviewed
-
Diagnostic Radiology: Report Reviewed by me
CT Scan: Report Reviewed by me
Labs: Labs Reviewed by me
--- NOTE | 2024-12-22 15:42 | PTCARENOTE ---
"Patient's HR continues to have elevated HRs from low 100s-117, hitting 120s briefly but multiple times. Repeat EKG done. Repeat VBG: pH 7.27, CO2 90. Patient continues to be obtunded. Daughter at bedside requesting to speak with physician. Dr Travis (~) notified via TT. Replied that he will order IV steroids and IV lopressor and be up to speak with daughter. RT in room and also contacted Dr Montelongo; responded to increase Bipap. "
--- NOTE | 2024-12-22 15:46 | PTCARENOTE ---
Dr Montelongo at bedside to speak with daughter.
--- NOTE | 2024-12-22 15:59 | CM ---
Patient from [facility] with Hx DH Admission 12/20 to 12/21/24 for Atrial flutter with RVR, successful ANIKET/DCCV with Dx Influenza B, Pneumonia. O2/BiPAP. Orders for IV Solumedrol, IV Lopressor, Tamiflu, IV Abx.
Spoke with José Manuel Holm & Nakul, Gluing Machine Operator [facility];
the patient resides there in LTC on an MA bed hold.
She is A/O at baseline, requires total care and is bedbound.
The patient was not receiving PT/OT currently.
She has been non-compliant with her BiPAP in the past.
Per Nakul, the patient was on O2 4L (8L O2 is the upper limit that they can accept for patients).
The patient's daughter Lilly is very involved.
The ph for report [phone] to station 1, fax [phone].
Plan contact patient's daughter prior to SNF return.
Plan return to [facility] when medically ready.
--- NOTE | 2024-12-22 16:14 | PTCARENOTE ---
Patient transferred to [facility]; report given to Carrie SAMPSON.
[2024-12-22] MEDS: SOLU-MEDROL PF 40 MG IV ×2 (16:25→23:21)
[2024-12-22] MEDS: CARDIZEM 5 MG IV (16:35)
[2024-12-22] MEDS: SUBLIMAZE 100 IV ×2 (16:39→19:49)
--- NOTE | 2024-12-22 16:43 | CON.INTV ---
Consultation
Consultation Request
Date/Time Consultation Requested: 12/22/2024
Date/Time Consultation Performed: 12/23/2019
Requesting Provider: Dr. Montelongo
Performing Provider: Dr. Cirilo Beach
Reason for Consultation: Acute hypercapnic respiratory failure requiring intubation
Medical History
-
Chief Complaint: Altered mental status
History of Present Illness:
Patient is a 78-year-old female with morbid obesity, oxygen dependent COPD, chronic severe hypercapnia, BiPAP intolerance, was brought to the emergency room for shortness of breath, lethargy.
Patient was recently admitted from 12/20 to 12/21/2024 for uncontrolled atrial flutter. Underwent ANIKET cardioversion on 12/21/2024. Converted to sinus rhythm and then discharged.
The evening after discharge complaining of shortness of breath. Complaining of cough and diaphoresis.
Mildly hypoxemic in the emergency room.
Patient turned out to be positive for influenza B.
Hypercapnic on VBG and started on BiPAP therapy.
Through the course of the hospital stay patient became more lethargic, not respond to BiPAP therapy. No significant improvement on pCO2 and her mental status worsened.
In the afternoon of 12/22/2024 transferred to the critical care unit due to lethargy.
Upon my evaluation, anesthesia was called stat. Patient was intubated without any problems.
After intubation developed rapid supraventricular tachycardia-narrow complex. Intermittently heart rate up to the 200s for a few seconds.
-
Mechanical ventilation setting adjusted
Sedation started.
Patient unable to provide history.
Discussion with primary team regarding clinical situation. Dr. Montelongo has discussed with daughter who requested intubation.
Past Medical History
Past Medical History: Reports Other ( COPD on 2 L baseline, obstructive sleep apnea intolerant to BiPAP, CAD, paroxysmal atrial fibrillation on Eliquis, diabetes, hypertension, hyperlipidemia, obesity, ambulatory dysfunction)
Past Surgical History: Reports Other (Appendectomy, Gynecological (Hysterectomy) and Orthopedic (Right hip replacement))
Social History
Tobacco: Non-smoker
Alcohol: None
Drug: None
Family History
Family History: Not pertinent
Allergies / Home Medications
-: No allergies.
Past Medical History
Past Medical History: Other (See assessment and plan)
Social History
Tobacco: Non-smoker
Alcohol: None
Drug: None
Living: [facility]
Family History
Family History: Unable to Obtain
Allergies / Home Medications
Allergies
Allergy/AdvReac Type Severity Reaction Status Date / Time
No Known Allergies Allergy Verified 12/20/24 11:38
Home Medications
�Medication �Instructions �Recorded �Confirmed �Last Taken �Type
acetaminophen 325 mg tablet 650 mg PO Q6HPRN PRN mild pain 06/05/24 12/22/24 Unknown History
albuterol sulfate 90 mcg/actuation 2 puff inhalation R Q6HPRN PRN 06/05/24 12/22/24 Unknown History
aerosol inhaler sob/wheezing
apixaban 5 mg tablet 5 mg PO BID Blood Clot 06/05/24 12/22/24 Unknown History
Prevention/Tx
aspirin 81 mg chewable tablet 81 mg PO DAILY Blood Clot 06/05/24 12/22/24 Unknown History
Prevention/Tx
atorvastatin 40 mg tablet 40 mg PO HS High Cholesterol 06/05/24 12/22/24 Unknown History
docusate sodium 100 mg capsule 200 mg PO QPM Constipation 06/05/24 12/22/24 Unknown History
ferrous sulfate 325 mg (65 mg 325 mg PO NOON Supplement 06/05/24 12/22/24 Unknown History
iron) tablet
furosemide 40 mg tablet 40 mg PO DAILY Fluid 06/05/24 12/22/24 Unknown History
Retention/Swelling
insulin glargine 100 unit/mL (3 10 unit SC HS Diabetes 06/05/24 12/22/24 Unknown History
mL) subcutaneous pen
ipratropium 0.5 mg-albuterol 3 mg 3 ml inhalation R Q6HPRN PRN 06/05/24 12/22/24 Unknown History
(2.5 mg base)/3 mL nebulization sob/wheezing
soln
metoprolol tartrate 25 mg tablet 25 mg PO BID Blood Pressure 06/05/24 12/22/24 Unknown History
pantoprazole 40 mg tablet,delayed 40 mg PO BID Gastrointestinal Issue 06/05/24 12/22/24 Unknown History
release
potassium chloride 10 mEq 10 meq PO DAILY Electrolyte 06/05/24 12/22/24 Unknown History
tablet,extended release(part/cryst) Repletion
therapeutic multivitamin 1 tab PO DAILY Supplement 06/05/24 12/22/24 Unknown History
magnesium hydroxide 400 mg/5 mL 2,400 mg PO DAILYPRN PRN 07/20/24 12/22/24 Unknown History
oral suspension (Milk of Magnesia) constipation
polyethylene glycol 3350 17 gram 17 g PO DAILYPRN PRN constipation 07/20/24 12/22/24 Unknown History
oral powder packet (Miralax)
melatonin 3 mg tablet 3 mg PO HS Sleep 12/20/24 12/22/24 Unknown History
metformin 1,000 mg tablet 1,000 mg PO BID Diabetes 12/20/24 12/22/24 Unknown History
nystatin 100,000 unit/gram topical 1 applic topical TID Infection 12/20/24 12/22/24 Unknown History
powder
sertraline 50 mg tablet 50 mg PO DAILY Depression 12/20/24 12/22/24 Unknown History
umeclidinium 62.5 mcg-vilanterol 1 inh inhalation DAILY 12/20/24 12/22/24 Unknown History
25 mcg/actuation powdr for Lung/Breathing Issues
inhalation (Anoro Ellipta)
Review of Systems
-
Unable to Obtain full review of systems at this time due to: Patient Intubation
Vitals / Labs / Diagnostic Testing
Vital Signs
Temp Pulse Resp BP Pulse Ox
97.5 F 161 14 87/65 100
12/22/24 09:14 12/22/24 16:00 12/22/24 16:00 12/22/24 16:00 12/22/24 16:00
Lab Data
12/22/24 04:02
12/22/24 04:02
Laboratory Results
12/22/24
08:09
pH 7.28 L
pCO2 82 H*
pO2 73 L
HCO3 38.5 H
O2 Delivery Level Not Reportable
Microbiology
12/22/24 04:02 Nasal Swab Influenza Types A & B (DAVIDSON) - Final
Influenza B Positive, NAAT
Diagnostic Testing:
Physical Exam
-
HEENT: Normocephalic
Cardiovascular: Regular Rhythm and Other (Tachycardia)
Respiratory: Clear and Accessory Resp Muscle Use
GI: Soft and Distended (Obese)
Neurology: Other (Lethargic/obtunded)
Skin: Warm and Other (No significant edema)
General: Respiratory Distress (Mild on BiPAP)
Assessment
-
79-year-old woman with past medical history noted. Unfortunately readmitted shortly after discharge for increased shortness of breath, hypoxemia and lethargy. Found to be with decompensated hypercapnic respiratory failure. Placed on BiPAP. She
failed due to progressive lethargy. Intubated 12/22/2024.
Acute on chronic hypercapnic respiratory failure-acutely placed on BiPAP since admission-decompensation likely triggered by influenza.
ABG 12/22/2024: 7.28/82/73-on BiPAP
Intubated on mechanical ventilation 12/22/2024 4:30 PM.
Influenza B positive
Chest x-ray 12/22/2024: Right hemidiaphragm elevation that is unchanged. Pulmonary vascular congestion suggestive of CHF.
History of CHF with preserved ejection fraction-proBNP is 2690.
Possible decompensation supraventricular tachycardia in and out atrial flutter during my evaluation heart rate as high as 200 intermittent
Atrial flutter status post ANIKET / DCCV (12/21/24)
Conditions present prior admission:
Atrial flutter status post ANIKET/cardioversion 12/21/2024
History of atrial fibrillation on Eliquis
Type 2 diabetes
Hypertension
Morbid obesity
Ambulatory dysfunction-[facility]
COPD on 2 L nasal cannula
History of non-ST elevation myocardial infarction.
Chronic right hemidiaphragm elevation
Chronic hypercapnic respiratory failure-likely secondary to possibly obesity hypoventilation/COPD-intolerant to BiPAP.
-
Assessment and plan:
Patient is critically ill, failed BiPAP therapy-since admission worsening hypercapnia, worsening mental status, require emergent intubation 2024.
Multiple reevaluations at the bedside due to ongoing tachycardia.
Discussion with primary team.
-
Mechanical ventilation settings reviewed: Started on assist-control 500/24/+5/100%
Pulse ox 99%
Unable to measure pulmonary mechanics as the patient is waking up and coughing.
Start fentanyl drip
RASS score 0 to -1
Obtain ABG in 1 hour and adjust as necessary
Obtain chest x-ray to verify ET tube placement
-
ABG tomorrow morning
-
Initial chest x-ray with increased interstitial markings, right hemidiaphragm elevation. Possibly due to volume overload. Cannot exclude pneumonitis from influenza
Tamiflu 5 to 10 days
-
History of severe COPD currently on 2 L supplemental oxygen
Usually on DuoNebs as needed as well as Anoro.
-
Hold inhalers
Start DuoNebs 3 times a day/Pulmicort if able
Placed on [id number] for now. Not significantly bronchospastic on my exam but patient is critically ill. Hopefully rapid taper.
No indication for antibiotics at this point. Will continue to monitor closely
-
Follow hemodynamics
Carson-Synephrine will be used if hypotensive not responsive to heart rate control and minimization of sedation.
-
Atrial flutter-recent cardioversion. Rate is not controlled.
Heart failure with preserved ejection fraction. Possible acute decompensation as well
ANIKET without clot
Maintain anticoagulation
IV metoprolol
Cardiology may need to reconsult if heart rate remains uncontrolled
Did receive 1 dose of 40 mg of Lasix earlier today. Will assess response. Her proBNP significantly elevated.
Initial chest x-ray demonstrated possible pulmonary edema
IV Cardizem 5 mg was given while heart rate was elevated with improvement.
-
N.p.o. for now
Dobbhoff tube will be placed for medications
Continue PPI for GI prophylaxis per
Head of the bed elevation
PPI for GI prophylaxis
DVT prophylaxis patient on anticoagulation.
-
Hyperglycemia
Insulin sliding scale
May need an insulin drip.
-
Full code for now per daughter.
Prognosis is guarded. Likely will have recurrent readmissions due to lack of BiPAP usage.
-
Critical care statement: A total of 90 minutes of critical care time was provided for this patient today. This includes management of unstable vital signs, evaluation of the patient at bedside, reviewing the patient's pertinent medical records
including ventilator settings, arterial blood gases, radiographs, microbiology, laboratory evaluations and discussion with primary team, critical care nursing, and respiratory therapy.
[2024-12-22] MEDS: SUBLIMAZE 50 MCG IV ×5 (17:11→20:03)
[2024-12-22] MEDS: LOPRESSOR 5 MG IV ×2 (17:11→23:21)
--- NOTE | 2024-12-22 17:25 | W.PN.ANESINT ---
Anesthesia Intubation Note
- Intubation Note
Intubation Note:
Diagnosis: respiratory distress
Blade: glidescope
Tube Size: 8.0 HiLo
Depth: 22cm at the lip
Side Taped: center
Drugs Used: 80mg propofol, 50mg rocuronium, 100mcg phenylephrine
Grade View: grade 1 view
EtCO2 Present: ETCO2 color change present on ETCO2 detector
Atraumatic: atraumatic
Attempts: 1 attempt
Insertion Start and Stop Time: 1608 start 1615 end
SaO2 Pre: 95 pre
SaO2 Post: 99 post
Glidescope Used: glidescope used
Other Airway Adjustments: none
Pre-Oxygenated: via bipap
Portable Chest X-Ray: ordered
RSI: no
Suctioned: none
Bilateral Breath Sounds Confirmed: bilateral breath sounds noted, no breath sounds over the abdomen
Vent Settings:
Settings per X___Attending Physician
Selene Herr CRNA
--- NOTE | 2024-12-22 17:40 | PTCARENOTE ---
Pt received from IMU to ICU bed 3369 at 1600 for intubation. Pt obtunded on BiPAP. Appeared to be in and out of afib at that time HR 100-150. Intubated by anesthesia. DHT placed. At 1625, rhythm change to SVT HR 214. Sean Beach called to
bedside. Returned to Sinus tach with PACs and PVCs HR 100-130 without intervention. Continued to have bursts of SVT HR 170-200. One time dose Diltiazem given per order. HR improved to 110s. At 1705, another burst of SVT HR 180-200.
Metoprolol given per order. At 1735, SVT HR 160s. notified. New order for Diltiazem gtt.
BP borderline. Phenylephrine ordered but not started at time d/t MAP > 65.
Pt agitated, fighting vent, and biting tube. Now on Fentanyl and Propofol gtts per protocol. Pt following simple commands.
PICC line placed by IV team d/t unable to get second peripheral IV.
Continues on droplet precautions for flu.
Daughter updated.
[2024-12-22] MEDS: DIPRIVAN 100 IV ×2 (17:52→19:49)
--- NOTE | 2024-12-22 17:59 | PTCARENOTE ---
Late Entry note: discussed with Dr Montelongo this morning that patient had not voided; verbal given to bladder scan and straight cath as per protocol, if needed. Order entered for u/a with reflex to culture. Bladder scan done approximately 12:15
showed 550. Patient then incontinent. PVR 300; straight cath completed and urine sent.
[2024-12-22 18:21] LABS: Glucose - Point of Care 108 mg/dl (70-99)
[2024-12-22 18:23] LABS: B.E. 12.8 mmol/L; HCO3 35.3 mmol/L (21-28); O2 Saturation % 99.7 % (94-98); PCO2 36 mmHg (32-35); PO2 97 mmHg (83-108)
[2024-12-22] MEDS: TAMIFLU 30 MG TUBE (19:30)
[2024-12-22] MEDS: PROTONIX IV 40 MG IV (19:30)
[2024-12-22] MEDS: NSS (PRESERVATIVE FREE) 10 ML IV (19:30)
[2024-12-22] MEDS: ELIQUIS 5 MG TUBE (19:30)
[2024-12-22] MEDS: FLOVENT 110 MCG INHALER 4 PUFF INH (20:00)
[2024-12-22 20:19] LABS: Triglycerides 115 mg/dl (10-149)
--- NOTE | 2024-12-22 20:42 | W.PN.UPDATE ---
Update Note
Progress Note Update
Procedure Note: Arterial Line�
� Right Wrist Arrow 20 (09/08)�
Diagnosis:��FLU B
IV Line Comments: Uneventful Procedure�
Beto's test completed pre-procedure: Yes�
A-Line Comments: Sterile technique as per standard protocol, Ultrasound guided insertion�
Functioning A-line in situ: Yes�
A-line Insertion Start Time: 1999��
A-line in at:�2020�
[2024-12-22] MEDS: NEO-SYNEPHRINE 250 IV (20:54)
--- NOTE | 2024-12-22 21:30 | PTCARENOTE ---
rec'd pt, full assessment as documented
pt ROMERO, b/l soft wrist restraints in place, nods y/n
SR on monitor with PACs/PVCs, MAP goal >65, lorie gtt briefly on/off
R radial A line placed at bedside by ICU MOSAIC TECHNICIAN
#8.0 ETT, @ 22 cm, vent settings adjusted to AC 20/450/5/40%, rhonchi breath sounds noted
DHT @ 70cm, + BS
bob placed for critical I+Os
prop/fent gtts infusing through R DL PICC with new tubing after XR confirmed placement
CHG bath, bob care, oral care done
daughter updated via phone, care ongoing
[2024-12-22] MEDS: LANTUS 0.05 UNITS SC (21:38)
[2024-12-22 23:25] LABS: B.E. 8.3 mmol/L; HCO3 29.1 mmol/L (21-28); O2 Saturation % 99.5 % (94-98); PCO2 27 mmHg (32-35); PO2 84 mmHg (83-108)
[2024-12-22 23:28] LABS: pH 7.64 (7.35-7.45)
[2024-12-22 23:31] LABS: Glucose - Point of Care 139 mg/dl (70-99)
[2024-12-23] VITALS (8 sets, daily range): BP systolic 93–124; BP diastolic 58–68; PULSE 2–78; BMI 32.5
--- NOTE | 2024-12-23 00:06 | PTCARENOTE ---
repeat ABG sent, RR dropped to 14. prop/fent gtts continue. pt remains SR on monitor with ectopy noted. care ongoing
[2024-12-23] MEDS: DIPRIVAN 100 IV ×2 (00:53→05:33)
[2024-12-23] MEDS: ZOSYN 50 IV ×4 (04:44→20:59)
[2024-12-23 04:51] LABS: B.E. 5.6 mmol/L; HCO3 27.5 mmol/L (21-28); O2 Saturation % 99.4 % (94-98); PCO2 30 mmHg (32-35); PO2 110 mmHg (83-108); pH 7.57 (7.35-7.45)
--- NOTE | 2024-12-23 05:02 | PTCARENOTE ---
Addendum entered by Yelitza Hudson RN 12/23/24 06:32:
RR decreased to 10 after ABG resulted. ICU RIBBON BLOCKER made aware of bradycardia, HR 40-50s, remains in SR with PVCs/PACs. add on mag ordered. no other orders at this time.
Original Note:
AM labs sent, morning EKG done. oral care done, ETT adjusted. prop/fent gtts continue. pt SB/SR on monitor with frequent PVCs/PACs. care ongoing
[2024-12-23 05:08] LABS: Hematocrit 30.2 % (37.0-47.0); Hemoglobin 9.9 g/dL (12.0-16.0); Mean Corp Hgb Conc. 32.8 g/dL (33.0-37.0); Mean Corpuscular Hgb 30.2 pg (27.0-31.0); Mean Corpuscular Volume 92.1 fL (81.0-99.0); Mean Platelet Volume 10.4 fL (7.4-10.4); Platelet Count 250 10^3/uL (130-400); Red Blood Cell Count 3.28 10^6/uL (4.20-5.40); Red Cell Dist. Width 12.5 % (11.5-14.5); White Blood Cell Count 6.1 10^3/uL (4.8-10.8)
[2024-12-23 05:15] LABS: ALT (SGPT) 23 U/L (0-35); AST (SGOT) 26 U/L (14-36); Albumin 3.4 g/dl (3.5-5.0); Alkaline Phosphatase 51 U/L (38-126); Blood Urea Nitrogen 35 mg/dl (7-17); Calcium 8.9 mg/dl (8.4-10.2); Carbon Dioxide 25 mmol/L (22-30); Chloride 102 mmol/L (98-107); Estimated Creatinine Clearance 56 ml/min; Glucose 150 mg/dl (70-99); Potassium 3.7 mmol/L (3.5-5.1); Sodium 143 mmol/L (135-145); Total Bilirubin 0.9 mg/dl (0.2-1.3); Total Protein 6.1 g/dl (6.3-8.2); eGFR > 60.00
[2024-12-23] MEDS: NOVOLOG FLEXPEN-MODERATE RESISTANCE 1 UNITS SC ×2 (05:24→12:00)
[2024-12-23 05:32] LABS: NT-proBNP 2930 pg/ml
[2024-12-23] MEDS: SUBLIMAZE 100 IV (05:32)
[2024-12-23] MEDS: LOPRESSOR 5 MG IV ×3 (05:35→18:28)
[2024-12-23] MEDS: KCL 50 IV (05:52)
[2024-12-23 07:00] LABS: Magnesium 1.6 mg/dl (1.6-2.3)
[2024-12-23] MEDS: FLOVENT 110 MCG INHALER 4 PUFF INH (07:35)
[2024-12-23] MEDS: DUONEB 3 ML INH ×4 (07:35→20:59)
[2024-12-23] MEDS: ELIQUIS 5 MG TUBE ×2 (08:00→20:59)
[2024-12-23] MEDS: PROTONIX IV 40 MG IV ×2 (08:00→20:57)
[2024-12-23] MEDS: NSS (PRESERVATIVE FREE) 10 ML IV ×2 (08:00→20:57)
[2024-12-23] MEDS: LOW STRENGTH ASPIRIN 81 MG TUBE (08:00)
[2024-12-23] MEDS: LASIX 40 MG TUBE (08:00)
[2024-12-23] MEDS: TAMIFLU 30 MG TUBE ×2 (08:00→20:58)
[2024-12-23] MEDS: MIRALAX 17 GRAMS TUBE (08:00)
[2024-12-23] MEDS: ZOLOFT 50 MG TUBE (08:00)
[2024-12-23] MEDS: DESENEX/MITRAZOL/ZEASORB 1 APPLIC TOPICAL ×3 (08:01→21:13)
[2024-12-23] MEDS: ATIVAN 1 MG IV (09:12)
[2024-12-23] MEDS: SOLU-MEDROL PF 40 MG IV ×2 (09:12→20:57)
[2024-12-23] MEDS: NSS (PRESERVATIVE FREE) 0.5 ML IV (09:13)
[2024-12-23 10:01] LABS: B.E. 3.8 mmol/L; HCO3 28.5 mmol/L (21-28); O2 Saturation % 99.5 % (94-98); PCO2 43 mmHg (32-35); PO2 108 mmHg (83-108); pH 7.43 (7.35-7.45)
--- NOTE | 2024-12-23 11:44 | W.PN.INTV ---
Today's Communication / Plan
Recommendations
Spontaneous breathing trial-extubation if
Wean off sedation
Start Precedex
Continue Tamiflu
Continue nebulizers
Will follow
Assessment
-
79-year-old woman with past medical history noted. Unfortunately readmitted shortly after discharge for increased shortness of breath, hypoxemia and lethargy. Found to be with decompensated hypercapnic respiratory failure. Placed on BiPAP. She
failed due to progressive lethargy. Intubated 12/22/2024.
Acute on chronic hypercapnic respiratory failure-acutely placed on BiPAP since admission-decompensation likely triggered by influenza.
ABG 12/22/2024: 7.28/82/73-on BiPAP
Intubated on mechanical ventilation 12/22/2024 4:30 PM.
Influenza B positive
Chest x-ray 12/22/2024: Right hemidiaphragm elevation that is unchanged. Pulmonary vascular congestion suggestive of CHF.
History of CHF with preserved ejection fraction-proBNP is 2690.
Possible decompensation supraventricular tachycardia in and out atrial flutter during my evaluation heart rate as high as 200 intermittent
Atrial flutter status post ANIKET / DCCV (12/21/24)
Conditions present prior admission:
Atrial flutter status post ANIKET/cardioversion 12/21/2024
History of atrial fibrillation on Eliquis
Type 2 diabetes
Hypertension
Morbid obesity
[facility]ulatory [facility]
COPD on 2 L nasal cannula
History of non-ST elevation myocardial infarction.
Chronic right hemidiaphragm elevation
Chronic hypercapnic respiratory failure-likely secondary to possibly obesity hypoventilation/COPD-intolerant to BiPAP.
-
Assessment and plan:
Patient is critically ill, failed BiPAP therapy-since admission worsening hypercapnia, worsening mental status, require emergent intubation 2024.
-
Mechanical ventilation settings reviewed:
Patient alkalotic
Mechanical ventilation settings adjusted
ABG 12/23/2024-9 46 AM: 7.43/43/108.
FiO2 is 40%. Adequate pulse ox
Not bronchospastic on exam
Peak pressure 22.
Chest x-ray without acute infiltrates.
-
Spontaneous breathing trial
Wean off sedation
Start Precedex as the patient is very anxious.
-
Initial chest x-ray with increased interstitial markings, right hemidiaphragm elevation. Possibly due to volume overload. Cannot exclude pneumonitis from influenza
Tamiflu 5 to 10 days
-
History of ?severe COPD currently on 2 L supplemental oxygen-not bronchospastic
Usually on DuoNebs as needed as well as Anoro.
Hold inhalers
Continue DuoNebs 3 times a day/Pulmicort if able
Decrease Solu-Medrol to every 12. Hopefully rapid taper in the next 24 to 48 hours to off.
No indication for antibiotics at this point. Will continue to monitor closely
-
Follow hemodynamics
Wean off Carson-Synephrine. Hemodynamics improved.
-
Atrial flutter-recent cardioversion. Rate improved but with intermittent bursts of tachycardia.
Immediately after intubation patient had narrow complex tachycardia up to the 200. No cardioversion was necessary. Improved after sedation and improvement of acidosis.
Status post diuresis for possible heart failure.
Hold further diuresis based on pulmonary mechanics and improve FiO2.
Maintain anticoagulation
IV metoprolol for now.
Cardiology may need to reconsult if heart rate remains uncontrolled
Did receive 1 dose of 40 mg of Lasix earlier today. Will assess response. Her proBNP significantly elevated.
Initial chest x-ray demonstrated possible pulmonary edema
IV Cardizem 5 mg was given while heart rate was elevated with improvement.
-
N.p.o. for now
Dobbhoff tube will be placed for medications
Continue PPI for GI prophylaxis
Head of the bed elevation
DVT prophylaxis patient on anticoagulation.
-
Hyperglycemia
Insulin sliding scale
Should improve as Solu-Medrol was decreased.
-
Full code for now per daughter.
Prognosis is guarded. Likely will have recurrent readmissions due to lack of BiPAP usage.
-
Critical care statement: A total of 41 minutes of critical care time was provided for this patient today. This includes management of unstable vital signs, evaluation of the patient at bedside, reviewing the patient's pertinent medical records
including ventilator settings, arterial blood gases, radiographs, microbiology, laboratory evaluations and discussion with primary team, critical care nursing, and respiratory therapy.
Subjective Dataa
Subjective Data
Date of Service:
Date of Service: December 23, 2024
Chief Complaint: Client Operations Manager Follow Up (Acute hypercapnic respiratory failure requiring mechanical intubation 12/22/2024)
Subjective:
Patient is on ventilator, unable to provide history.
Sedated. Appears anxious. Opens eyes. Not following commands.
Review of Systems
General: Unobtainable - Sedation
Objective Data
Data Reviewed
Vital Signs / I&O / Oxygen:
Vital Signs
Temp Pulse Resp BP Pulse Ox
99.1 F 111 12 93/58 97
12/23/24 09:04 12/23/24 11:35 12/23/24 11:35 12/23/24 08:00 12/23/24 11:35
Intake and Output
12/22/24 12/23/24 12/24/24
06:59 06:59 06:59
Intake Total 500.3 / 517.7 132.0 / 132.0
Output Total 745 / 745 100 / 100
Balance -244.7 / -227.3 32.0 / 32.0
SaO2 [A/C] 100
SaO2 97
Physical Exam
General: Other (Appears anxious, tremulous opening eyes.)
HEENT: Normocephalic and Other (ET tube in place without secretion)
Cardiovascular: S1-S2
Respiratory: Clear and ET Tube (No secretions)
GI: Soft and Distended (Obese)
Neurology: Awake, No Motor Deficits, Tremors and Other (Open eyes, pupils are equal and reactive.)
Skin: Warm
Labs/Micro/Reports
Lab Data
12/23/24 04:41
12/23/24 04:41
Laboratory Results
12/22/24 12/22/24 12/23/24
18:14 23:19 04:41
pH 7.60 H 7.64 H* 7.57 H
pCO2 36 H 27 L 30 L
pO2 97 84 110 H
HCO3 35.3 H 29.1 H 27.5
O2 Delivery Level
12/23/24
09:46
pH 7.43
pCO2 43 H
pO2 108
HCO3 28.5 H
O2 Delivery Level
Microbiology
12/22/24 21:43 Nose Nasal Screen MRSA (PCR) - Final
MRSA not detected - performed by PCR methodology.
12/22/24 04:02 Nasal Swab Influenza Types A & B ([facility]) - Final
Influenza B Positive, NAAT
[2024-12-23 12:10] LABS: Glucose - Point of Care 170 mg/dl (70-99)
--- NOTE | 2024-12-23 12:57 | PN.CDI ---
CDI
- -
CDI:
Physician Documentation Request
Admit Date: 12/22/24 05:55
Dear Doctor Jayda,
Please review the following and provide your response in the progress notes.
Clinical Indicators:
Pt admitted with Influenza B with viral/bacterial PNA/ Acute on Chronic Hypercapnic/Hypoxic Respiratory failure
Pt on Zosyn/Cefepime/Tamiflu
On admission Temp 95.4 HR 112, Respirations 29, WBC 16.7
Please clarify which of the following most accurately describes the status of the patient's infection:
Sepsis-POA
- Systemic manifestations of infection, with 2 or more SIRS criteria which include:
- Fever >100.9 degrees F or hypothermia < 96.8 degrees F
- Leukocytosis - WBC > 12,000 or leukopenia - WBC < 4,000 or > 10% bands
- Tachycardia > 90 beats per minute
- Tachypnea - RR > 20 breaths per minute or PaCO2 , 32mmHg
Source: Merck Manual 2013
Influenza B viral PNA/Bacterial PNA , Without Systemic Illness
Other ( please specify)
Use of terms such as suspected, likely, concern for, or probable (associated with a specific diagnosis that is being evaluated, monitored, or treated as if it exists) are acceptable and can be coded in the inpatient setting, when documented at the
time of discharge.
Thank you,
Odalys Fontanez RN
CDI Specialist
[place] [facility]
Please use your independent medical judgment in providing your response.
--- NOTE | 2024-12-23 13:02 | PN.CDI ---
CDI
- -
CDI:
Physician Documentation Request
Admit Date: 12/22/24 05:55
Dear Doctor Jayda ,
Please review the following and provide your response in the progress notes.
Clinical Indicators:
Pt admitted with Influenza B with viral/bacterial PNA/ Acute on Chronic Hypercapnic/Hypoxic Respiratory failure
Insurance Collector consult, 'Heart failure with preserved ejection fraction. Possible acute decompensation as well..'
Insurance Collector progress note 12/23,' Initial chest x-ray with increased interstitial markings, right hemidiaphragm elevation. Possibly due to volume overload....Status post diuresis for possible heart failure....Did receive 1 dose of 40 mg of Lasix
earlier today. Will assess response. Her proBNP significantly elevated.Initial chest x-ray demonstrated possible pulmonary edema....'
Progress note 12/22, ' Chronic HFpEF...'
Per SEP 3 doses IV Lasix 40 mg
Please provide a diagnosis for the above findings/treatment :
Acute on Chronic Diastolic CHF /Acute noncardiogenic pulmonary edema
Acute on Chronic Diastolic CHF only
Other ( please specify)
Use of terms such as suspected, likely, concern for, or probable (associated with a specific diagnosis that is being evaluated, monitored, or treated as if it exists) are acceptable and can be coded in the inpatient setting, when documented at the
time of discharge.
Thank you,
Odalys Fontanez RN
CDI Specialist
[place] [facility]
Please use your independent medical judgment in providing your response.
[2024-12-23] MEDS: PRECEDEX 100 IV ×2 (13:09→20:53)
--- NOTE | 2024-12-23 13:12 | PTCARENOTE ---
Pt awake and anxious. Propofol off. Weaning Fentanyl gtt. Precedex started. Currently on SBT. Tremulous and bites ETT at times. Sinus rhythm to sinus tach with frequent PACs and PVCs. One episode of SVT at 1218. HR increased to 210. Lasted
about a minute. Dr Beach notified. Continues to have poor urine output. Right PICC line and right radial a-line intact. All other assessments unchanged.
[2024-12-23 13:32] LABS: B.E. 6.2 mmol/L; HCO3 32.5 mmol/L (21-28); O2 Saturation % 97.8 % (94-98); PCO2 55 mmHg (32-35); PO2 79 mmHg (83-108); pH 7.38 (7.35-7.45)
--- NOTE | 2024-12-23 14:12 | W.PN.HOSP.TC ---
Today's Communication/Plan
-
Trial SBT
Wean fentanyl, propofol and start dexmedetomidine in effort for extubation
Wean IV steroids
Continue nebulizers
Continue empiric antibiotics
Appreciate tentative's care
Assessment / Plan
Assessment / Plan
A/P: Patient is an 79y F with PMH significant for COPD, chronic hypoxemic respiratory failure on home O2 and recent admission for A-Flutter requiring ANIKET / DCCV on 12/21 who presents to ED c/o SOB.
Influenza B
Pneumonia (viral +/- bacterial component)
Acute on Chronic Hypoxemic and Hypercapnic Respiratory Failure secondary to the above, required mechanical intubation
COPD exacerbation
- Failed BiPAP trial, intubated on 12/22
� Spontaneous breathing trial today
� Wean fentanyl, propofol as needed in effort to extubate; start Precedex for agitation, appreciate voice over announcer care
- Tamiflu. Cover with empiric IV abx as well given recent hospitalization / severity of illness / etc.
- Wean O2 support back to usual 2-3 lpm as able.
- Wean IV steroids
- Duonebs
� Pulmonary orders
Paroxysmal A-Fib / Flutter
s/p ANIKET / DCCV 12/21/24
- Stable. Remains in sinus with PACs at present.
- Continue current med regimen including Eliquis for stroke risk reduction.
ASCVD
Chronic HFpEF
- Stable. Continue usual diuretic regimen.
- Follow I/Os, daily weights, etc.
- Continue ASA, statin, etc.
DM-II
- Stable. Continue basal insulin + SSI as needed.
CHRISTIANO
COPD
- Treat acute respiratory decompensation as noted above.
- Patient typically intolerant of PAP therapy - though seems to be tolerating BiPAP thus far
- Continue inhaled medications upon dc
DVT Prophylaxis: On Eliquis
Code Status: Full
Total time spent on today's encounter was 51 minutes which included time spent in counseling the patient/family regarding diagnosis and treatment plan as listed above, goals of care, and symptom management. Case was discussed with nursing staff,
specialists, and care coordinators/case management. All labs and imaging personally reviewed by me. Remainder the time spent in detailed review of previous records, lab data, imaging, and other medical provider documentation.
Anticipated Discharge: > 48 hours
Subjective/Interval History
-
Date of Service: December 23, 2024
Agitated, start Precedex
Objective Data
-
Labs:
Laboratory Results
12/23/24 12/23/24 12/23/24
04:41 09:46 13:23
WBC 6.1
Hgb 9.9 L
Hct 30.2 L
Plt Count 250 D
HCO3 27.5 28.5 H 32.5 H
Sodium 143
Potassium 3.7
Chloride 102
Carbon Dioxide 25
BUN 35 H
Creatinine 0.8
Glucose 150 H
Calcium 8.9
Total Bilirubin 0.9
AST 26
ALT 23
Alkaline Phosphatase 51
Vital Signs:
Vital Signs
Temp Pulse Resp BP Pulse Ox
98.6 F 111 12 93/58 97
12/23/24 14:02 12/23/24 11:35 12/23/24 11:35 12/23/24 08:00 12/23/24 11:35
I&O
12/22/24 12/23/24 12/24/24
06:59 06:59 06:59
Intake Total 500.3 / 517.7 142.0 / 142.0
Output Total 745 / 745 115 / 115
Balance -244.7 / -227.3 27.0 / 27.0
Review of Systems
-
History Source: Patient
All other systems: Not reviewed unless documented
Physical Exam
-
General: No Apparent Distress
HEENT: Normocephalic and Atraumatic
Respiratory: Negative Wheezes
Cardiac: Regular Rhythm and S1/S2
GI: Soft
Genito-urinary: No Costovertebral Tender
Neuro: AO x 3
Psych: Calm
Data Reviewed
-
Diagnostic Radiology: Report Reviewed by me
CT Scan: Report Reviewed by me
Labs: Labs Reviewed by me
--- NOTE | 2024-12-23 14:30 | W.PN.UPDATE ---
Update Note
Progress Note Update
ABG with compensated chronic hypercapnic respiratory failure pressures per ventilation 02/09.
Patient following commands but still slightly somnolent.
Will wean off fentanyl.
Continue pressure support ventilation for now
I will discussed with daughter goals of care
--- NOTE | 2024-12-23 14:44 | W.PN.UPDATE ---
Update Note
Progress Note Update
I discussed with daughter clinical situation-poor quality of life. Recurrent respiratory failure due to lack of BiPAP usage.
Patient has expressed in the past that she does not want to continue with recurrent intubations or wearing BiPAP.
We have decided to institute DNR status
Will extubate as the patient looks good on current weaning trial.
Will try BiPAP.
If there is increased work of breathing then we will try to keep the patient as comfortable as possible and transition to hospice if necessary.
--- NOTE | 2024-12-23 15:27 | CM ---
Changed to DNR, extubate weaning trial then Bipap. Discharge POC: TBD.
--- NOTE | 2024-12-23 17:16 | PTCARENOTE ---
Pt extubated at at 1515 to Bipap. SpO2 97%. Pt very anxious at times. Remains on Precedex gtt. Sinus rhythm frequent PACs and PVCs. No BM. Poor urine output via bob. All other assessments unchanged.
--- NOTE | 2024-12-23 17:32 | W.PN.UPDATE ---
Update Note
Progress Note Update
Tolerated extubation
Continue BiPAP as needed and at bedtime at the current settings-currently tolerating well
Will attempt to wean off Precedex
Daughter at the bedside-Dr. Beach updated.
If patient deteriorates then we will attempt to keep comfortable.
[2024-12-23] MEDS: NOVOLOG FLEXPEN-MODERATE RESISTANCE SC (18:28)
[2024-12-23] MEDS: NOVOLOG FLEXPEN-HIGH RESISTANCE 4 UNITS SC ×2 (18:28→23:58)
[2024-12-23 18:29] LABS: Glucose - Point of Care 221 mg/dl (70-99)
[2024-12-23] MEDS: FLOVENT 110 MCG INHALER 2 PUFF INH (20:59)
[2024-12-23] MEDS: MAGNESIUM SULFATE 50 IV (20:59)
[2024-12-23] MEDS: LANTUS 0.1 UNITS SC (20:59)
[2024-12-24] VITALS (10 sets, daily range): BP systolic 108–120; BP diastolic 50–93; PULSE 2–68; BMI 32.6
[2024-12-24 00:08] LABS: Glucose - Point of Care 205 mg/dl (70-99)
--- NOTE | 2024-12-24 01:19 | PTCARENOTE ---
pt pulling off bipap multiple times, removed DHT, RT and ICU PHOTOENGRAVING ETCHER at bedside. 4L NC placed on pt, spO2 97%. precedex gtt continues, pt forgetful and hard to redirect.
[2024-12-24] MEDS: PRECEDEX 100 IV (01:59)
[2024-12-24] MEDS: LOPRESSOR IV (02:01)
[2024-12-24] MEDS: ZOSYN 50 IV ×2 (03:07→09:20)
[2024-12-24 03:14] LABS: Hematocrit 31.8 % (37.0-47.0); Hemoglobin 10.3 g/dL (12.0-16.0); Mean Corp Hgb Conc. 32.4 g/dL (33.0-37.0); Mean Corpuscular Volume 92.7 fL (81.0-99.0); Mean Platelet Volume 9.8 fL (7.4-10.4); Platelet Count 257 10^3/uL (130-400); Red Blood Cell Count 3.43 10^6/uL (4.20-5.40); White Blood Cell Count 6.4 10^3/uL (4.8-10.8)
[2024-12-24 04:15] LABS: ALT (SGPT) 22 U/L (0-35); AST (SGOT) 22 U/L (14-36); Albumin 3.4 g/dl (3.5-5.0); Alkaline Phosphatase 40 U/L (38-126); Blood Urea Nitrogen 45 mg/dl (7-17); Calcium 8.9 mg/dl (8.4-10.2); Carbon Dioxide 34 mmol/L (22-30); Chloride 103 mmol/L (98-107); Estimated Creatinine Clearance 50 ml/min; Glucose 178 mg/dl (70-99); Potassium 3.7 mmol/L (3.5-5.1); Sodium 146 mmol/L (135-145); Total Bilirubin 0.7 mg/dl (0.2-1.3); Total Protein 6.4 g/dl (6.3-8.2); eGFR > 60.00
--- NOTE | 2024-12-24 04:18 | PTCARENOTE ---
AM labs sent. pt remains on 4L NC after attempting to place pt back on bipap. pt remains anxious, precedex gtt continues.
[2024-12-24] MEDS: NOVOLOG FLEXPEN-HIGH RESISTANCE 2 UNITS SC ×3 (05:27→16:48)
[2024-12-24] MEDS: LOPRESSOR 5 MG IV (05:27)
[2024-12-24 05:36] LABS: Glucose - Point of Care 194 mg/dl (70-99)
[2024-12-24] MEDS: PULMICORT 0.5 MG INH ×2 (07:29→19:17)
[2024-12-24] MEDS: DUONEB 3 ML INH ×4 (07:29→19:17)
[2024-12-24 07:59] LABS: Glucose - Point of Care 132 mg/dl (70-99)
[2024-12-24] MEDS: ZOLOFT 50 MG TUBE (08:23)
[2024-12-24] MEDS: MIRALAX 17 GRAMS TUBE (08:23)
[2024-12-24] MEDS: ELIQUIS 5 MG TUBE (08:27)
[2024-12-24] MEDS: TAMIFLU 30 MG TUBE (08:27)
[2024-12-24] MEDS: LASIX 40 MG TUBE (08:28)
[2024-12-24] MEDS: NSS (PRESERVATIVE FREE) 10 ML IV (08:28)
[2024-12-24] MEDS: DESENEX/MITRAZOL/ZEASORB 1 APPLIC TOPICAL ×2 (08:28→21:03)
[2024-12-24] MEDS: PROTONIX IV 40 MG IV (08:28)
[2024-12-24] MEDS: LOW STRENGTH ASPIRIN 81 MG TUBE (08:28)
[2024-12-24 09:07] LABS: B.E. 7.9 mmol/L; O2 Saturation % 96.7 % (94-98); PCO2 62 mmHg (32-35); PO2 78 mmHg (83-108); pH 7.36 (7.35-7.45)
--- NOTE | 2024-12-24 10:26 | PTCARENOTE ---
Assumed care of pt. Precedex off as instructed by Unclaimed Property Officer. Pt lethargic but awakens easily. not oriented to place or time, agitated and verbally cross with staff. SB-SR with PAC, PVCs. On 4L NC with rare moist cough, SpO2 95%. Tolerating sips
without issue, able to take PO meds. ABG drawn and Helotes removed as requested by Unclaimed Property Officer.
--- NOTE | 2024-12-24 11:00 | W.PN.INTV ---
Today's Communication / Plan
Recommendations
Continue nebulizer therapy
Discontinue IV corticosteroids
Hold further diuresis
Discontinue antibiotics
Continue Tamiflu
Gentle hydration, encourage oral intake
Discontinue Precedex
Incentive spirometry as able
BiPAP as able-patient does not like to
Poor prognosis
Transfer to telemetry
Assessment
-
79-year-old woman with past medical history noted. Unfortunately readmitted shortly after discharge for increased shortness of breath, hypoxemia and lethargy. Found to be with decompensated hypercapnic respiratory failure. Placed on BiPAP. She
failed due to progressive lethargy. Intubated 12/22/2024.
Acute on chronic hypercapnic respiratory failure-acutely placed on BiPAP since admission-decompensation likely triggered by influenza.
ABG 12/22/2024: 7.28/82/73-on BiPAP
Intubated on mechanical ventilation 12/22/2024 4:30 PM.
Influenza B positive
Chest x-ray 12/22/2024: Right hemidiaphragm elevation that is unchanged. Pulmonary vascular congestion suggestive of CHF.
History of CHF with preserved ejection fraction-proBNP is 2690.
Possible decompensation supraventricular tachycardia in and out atrial flutter during my evaluation heart rate as high as 200 intermittent
Atrial flutter status post ANIKET / DCCV (12/21/24)
Conditions present prior admission:
Atrial flutter status post ANIKET/cardioversion 12/21/2024
History of atrial fibrillation on Eliquis
Type 2 diabetes
Hypertension
Morbid obesity
Ambulatory dysfunction-bedbound at the long term
COPD on 2 L nasal cannula
History of non-ST elevation myocardial infarction.
Chronic right hemidiaphragm elevation
Chronic hypercapnic respiratory failure-likely secondary to possibly obesity hypoventilation/COPD-intolerant to BiPAP.
-
Assessment and plan:
Failed BiPAP therapy-since admission worsening hypercapnia, worsening mental status, require emergent intubation 2024.
Extubated 12/23/2024
Chest x-ray without acute infiltrates.
Continue oxygen supplementation to maintain pulse ox above 90%.
Not bronchospastic on exam.
Patient pulled off BiPAP-does not want it.
She pulled out Dobbhoff tube as well.
-
Chronic hypercapnic respiratory failure:
ABG 12/24/2024: Reviewed 7.78-patient has been off BiPAP since last night as she does not want to use it
Compensated.
Risk of decompensation, worsening hypercapnia without BiPAP usage.
-
Patient intermittently confused-suspect some degree of delirium possibly on dementia.
Discontinue Precedex
If agitated may use Haldol as needed
Aspiration precautions
-
Initial chest x-ray with increased interstitial markings, right hemidiaphragm elevation. Possibly due to volume overload. Cannot exclude pneumonitis from influenza
Tamiflu 5 to 10 days
-
History of ?severe COPD currently on 2 L supplemental oxygen-not bronchospastic
Usually on DuoNebs as needed as well as Anoro.
Hold inhalers
Continue DuoNebs 3 times a day/Pulmicort if able
Discontinue Solu-Medrol 12/24/2024.
Discontinue IV antibiotics. Doubt bacterial superinfection.
Monitor closely.
-
Hemodynamically stable-no longer requiring vasopressors.
-
Atrial flutter-recent cardioversion. Rate improved but with intermittent bursts of tachycardia.
Initial chest x-ray demonstrated possible pulmonary edema
Immediately after intubation patient had narrow complex tachycardia up to the 200. No cardioversion was necessary. Improved after sedation and improvement of acidosis.
Status post diuresis for possible heart failure.
Patient hypernatremic now.
Gentle IV fluids x 1 back
Holding further aggressive diuresis. Will continue to reevaluate.
Maintain anticoagulation
Transition to oral metoprolol. Can use as needed IV for heart rate control.
Cardiology may need to reconsult if heart rate remains uncontrolled
-
Advance diet
Patient pulled out Dobbhoff tube.
Dobbhoff tube will be placed for medications
Continue PPI for GI prophylaxis
-
DVT prophylaxis patient on anticoagulation.
-
Hyperglycemia-likely to improve now that steroids have been discontinued.
Insulin sliding scale
Should improve as Solu-Medrol was decreased.
-
Prior discussion with daughter with Dr. Beach-DNR status was instituted. Patient does not want to use CPAP/BiPAP. Poor prognosis going forward-if decompensates focus on comfort.
-
Will transfer to telemetry.
Pulmonary will continue to follow briefly
Subjective Dataa
Subjective Data
Date of Service:
Date of Service: December 24, 2024
Chief Complaint: Detention Officer Follow Up (Acute hypercapnic respiratory failure requiring mechanical intubation 12/22/2024)
Subjective:
Overnight patient pulled out BiPAP and NG tube.
Intermittently confused
Remains on supplemental oxygen
On low-dose Precedex for behavioral control.
Review of Systems
General: Fever (n)
Cardiopulmonary: Dyspnea
GI: Nausea (n) and Vomiting (n)
Objective Data
Data Reviewed
Vital Signs / I&O / Oxygen:
Vital Signs
Temp Pulse Resp BP Pulse Ox
97.4 F 55 18 114/75 91
12/24/24 10:59 12/24/24 10:00 12/24/24 10:00 12/24/24 08:15 12/24/24 10:00
Intake and Output
12/23/24 12/24/24 12/25/24
06:59 06:59 06:59
Intake Total 500.3 / 517.7 531.9 / 538.1 15.4 / 15.4
Output Total 745 / 745 615 / 615 10
Balance -244.7 / -227.3 -83.1 / -76.9 5.4 / 5.4
SaO2 [A/C] 100
SaO2 91
Nasal Cannula flow liters per 4
minute
Physical Exam
General: Other (Somnolent but arousable.)
HEENT: Normocephalic and Other (ET tube in place without secretion)
Cardiovascular: S1-S2
Respiratory: Clear
GI: Soft and Distended (Obese)
Neurology: No Motor Deficits, Tremors and Other (Somnolent but arousable.)
Skin: Warm
Labs/Micro/Reports
Lab Data
12/24/24 03:04
12/24/24 03:04
Laboratory Results
12/23/24 12/24/24
13:23 08:57
pH 7.38 7.36
pCO2 55 H 62 H
pO2 79 L 78 L
HCO3 32.5 H 35.0 H
O2 Delivery Level
Microbiology
12/22/24 21:43 Nose Nasal Screen MRSA (PCR) - Final
MRSA not detected - performed by PCR methodology.
12/22/24 04:02 Nasal Swab Influenza Types A & B (DAVIDSON) - Final
Influenza B Positive, NAAT
[2024-12-24] MEDS: LOPRESSOR 25 MG PO ×2 (11:35→20:16)
[2024-12-24] MEDS: LR 1000 IV (11:35)
--- NOTE | 2024-12-24 11:45 | W.PN.UPDATE ---
Update Note
Progress Note Update
Patient adamantly refusing BiPAP. She understands that decompensation is likely-high risk of mortatlity.
Discontinue BiPAP
Continue with current care
Transfer to telemetry
Pulmonary will follow briefly
[2024-12-24 12:19] LABS: Glucose - Point of Care 180 mg/dl (70-99)
--- NOTE | 2024-12-24 12:40 | PTCARENOTE ---
Assessment unchanged. Pt more alert, no WOB noted.
[2024-12-24] MEDS: NOVOLOG FLEXPEN-HIGH RESISTANCE SC (13:08)
[2024-12-24] MEDS: TYLENOL 650 MG PO ×2 (13:39→21:03)
--- NOTE | 2024-12-24 14:28 | W.PN.HOSP.TC ---
Addendum entered and electronically signed by Patel Montelongo MD 12/24/24 17:05:
Sepsis-POA
Metabolic Encephalopathy/ Dementia with agitation/delirium
Acute on Chronic Diastolic CHF
Original Note:
Today's Communication/Plan
-
duonebs
stop iv steroids
family and patient aware patient refusing bipap and daughter understands high risk of mortality; now DNR
prog poor
cont tamiflu
fluids
downgrade
Assessment / Plan
Assessment / Plan
A/P: Patient is an 79y F with PMH significant for COPD, chronic hypoxemic respiratory failure on home O2 and recent admission for A-Flutter requiring ANIKET / DCCV on 12/21 who presents to ED c/o SOB.
Influenza B
Pneumonia (viral +/- bacterial component)
Acute on Chronic Hypoxemic and Hypercapnic Respiratory Failure secondary to the above, required mechanical intubation
COPD exacerbation
- Failed BiPAP trial, intubated on 12/22; extubated 12/23
-Extubated on precedex
-Refusing bipap, understands high risk of mortality; Daughter understands as per ex assistant/program director. now DNR
- Tamiflu. Cover with empiric IV abx as well given recent hospitalization / severity of illness / etc.
- Wean O2 support back to usual 2-3 lpm as able.
- DC iv steroids
- Duonebs
� Pulmonary orders
Paroxysmal A-Fib / Flutter
s/p ANIKET / DCCV 12/21/24
- Stable. Remains in sinus with PACs at present.
- Continue current med regimen including Eliquis for stroke risk reduction.
Hypernatremia
-most likely hypovolemia related
-hold lasix
-LR for now
ASCVD
Chronic HFpEF
- Stable. Continue usual diuretic regimen.
- Follow I/Os, daily weights, etc.
- Continue ASA, statin, etc.
DM-II
- Stable. Continue basal insulin + SSI as needed.
CHRISTIANO
COPD
- Treat acute respiratory decompensation as noted above.
- Patient typically intolerant of PAP therapy - see above
- Continue inhaled medications upon dc
DVT Prophylaxis: On Eliquis
Code Status: DNR
Prognosis - Poor
Anticipated Discharge: 24 - 48 hours
Subjective/Interval History
-
Date of Service: December 24, 2024
Extubated yesterday, tolerates patient well although hypercapnia worsened. Social Service Technician had discussion as the patient is refusing BiPAP understands high risk and likelihood of mortality.
Objective Data
-
Labs:
Laboratory Results
12/24/24 12/24/24
03:04 08:57
WBC 6.4
Hgb 10.3 L
Hct 31.8 L
Plt Count 257
HCO3 35.0 H
Sodium 146 H
Potassium 3.7
Chloride 103
Carbon Dioxide 34 H
BUN 45 H
Creatinine 0.9
Glucose 178 H
Calcium 8.9
Total Bilirubin 0.7
AST 22
ALT 22
Alkaline Phosphatase 40
Vital Signs:
Vital Signs
Temp Pulse Resp BP Pulse Ox
97.4 F 75 16 108/57 95
12/24/24 10:59 12/24/24 14:00 12/24/24 14:00 12/24/24 12:00 12/24/24 14:00
I&O
12/23/24 12/24/24 12/25/24
06:59 06:59 06:59
Intake Total 500.3 / 517.7 531.9 / 538.1 945.4 / 945.4
Output Total 745 / 745 615 / 615 390 / 390
Balance -244.7 / -227.3 -83.1 / -76.9 555.4 / 555.4
Review of Systems
-
History Source: Patient
All other systems: Not reviewed unless documented
Physical Exam
-
General: No Apparent Distress
HEENT: Normocephalic and Atraumatic
Respiratory: Negative Wheezes
Cardiac: Regular Rhythm and S1/S2
GI: Soft
Genito-urinary: No Costovertebral Tender
Neuro: AO x 3
Psych: Calm
Data Reviewed
-
Diagnostic Radiology: Report Reviewed by me
CT Scan: Report Reviewed by me
Labs: Labs Reviewed by me
--- NOTE | 2024-12-24 14:51 | PN.CDI ---
CDI
- -
CDI:
Physician Documentation Request
Admit Date: 12/22/24 05:55
Dear Doctor Jayda,
Please review the following and provide your response in the progress notes.
Clinical Indicators:
Pt admitted with Pt admitted with Influenza B with viral/bacterial PNA/ Acute on Chronic Hypercapnic/Hypoxic Respiratory failure
Documented per ED,' .. Also lethargic. According to EMS on arrival to the nursing facility her pulse ox 40s on nasal cannula. Was started on nonrebreather and given breathing treatment with pulse ox into the mid 90s. Patient minimally responsive
verbally....'
Pt care note 12/22 @ 1032,' Patient not responding verbally, occasionally will moan as a response to touch...'
Pt care note 12/22 @ 1740,'Pt obtunded on BiPAP...Pt agitated, fighting vent, and biting tube. Now on Fentanyl and Propofol gtts per protocol. ...'
Pt care note 12/24 @ 1026,' Pt lethargic but awakens easily. not oriented to place or time, agitated and verbally cross with staff. ...'
Steam Clean Machine Operator note 12/24,' Patient intermittently confused-suspect some degree of delirium possibly on dementia....'
Based on the above, could you clarify in the Progress Notes and Discharge Summary which, if any of the following, is the most likely etiology of the confusion/altered mental status.
Metabolic Encephalopathy/ Dementia with agitation/delirium
Dementia with delirium only
Other ( please specify)
Use of terms such as suspected, likely, concern for, or probable (associated with a specific diagnosis that is being evaluated, monitored, or treated as if it exists) are acceptable and can be coded in the inpatient setting, when documented at the
time of discharge.
Thank you,
Odalys Fontanez RN
CDI Specialist
[employer]
Please use your independent medical judgment in providing your response.
--- NOTE | 2024-12-24 15:37 | CM ---
Steroids D/CD, refusing Bipap, poor prognosis. Transfer to telemetry. Discharge POC: TBD.
[2024-12-24 16:46] LABS: Glucose - Point of Care 163 mg/dl (70-99)
[2024-12-24] MEDS: DESENEX/MITRAZOL/ZEASORB TOPICAL ×2 (16:48→16:59)
--- NOTE | 2024-12-24 16:57 | PTCARENOTE ---
Report given to Mac. Justice removed. Pt refusing desenex powder stating she wants an ointment, powders don't work for her.
--- NOTE | 2024-12-24 17:47 | PTCARENOTE ---
received into room 321 from ICU. Patient oriented to self, place, situation, but forgetful to time. Aware year is 2024 but cannot name month or day. VSS, 92% on 2L O2. Purewick in place d/t WALKER. Discussed plan of care. Left w/ call borrego in reach.
[2024-12-24] MEDS: PROTONIX 40 MG PO (20:16)
[2024-12-24] MEDS: TAMIFLU 30 MG PO (20:16)
[2024-12-24] MEDS: ELIQUIS 5 MG PO (20:16)
--- NOTE | 2024-12-24 21:07 | VATNOTE ---
called to pts room as pt. complaining 'somethings pinching me here'; regarding right arm PICC line. Dsg changed per protocol and upon changing /removing bloody stat lock noted size of a dime blood blister underneath stat lock. Applied small piece of
gauze with a steri-strip to cover it and then applied new stat lock on top of gauze as best could. Brisk blood return noted both lumens. Pt has some relief of discomfort after new dsg. applied. PCN updated.
[2024-12-24 21:17] LABS: Glucose - Point of Care 124 mg/dl (70-99)
[2024-12-24] MEDS: LANTUS 0.1 UNITS SC (21:45)
[2024-12-25 02:34] VITALS: BP 118/62
[2024-12-25 03:02] VITALS: BMI 34.0
[2024-12-25 04:42] LABS: Mean Corp Hgb Conc. 32.3 g/dL (33.0-37.0); Mean Corpuscular Hgb 30.3 pg (27.0-31.0); Mean Corpuscular Volume 93.9 fL (81.0-99.0); Mean Platelet Volume 9.9 fL (7.4-10.4); Platelet Count 264 10^3/uL (130-400); Red Cell Dist. Width 13.1 % (11.5-14.5); White Blood Cell Count 10.7 10^3/uL (4.8-10.8)
[2024-12-25 05:08] LABS: ALT (SGPT) 22 U/L (0-35); AST (SGOT) 21 U/L (14-36); Albumin 3.4 g/dl (3.5-5.0); Alkaline Phosphatase 51 U/L (38-126); Blood Urea Nitrogen 45 mg/dl (7-17); Calcium 8.7 mg/dl (8.4-10.2); Carbon Dioxide 35 mmol/L (22-30); Chloride 100 mmol/L (98-107); Estimated Creatinine Clearance 51 ml/min; Glucose 120 mg/dl (70-99); Potassium 3.1 mmol/L (3.5-5.1); Sodium 143 mmol/L (135-145); Total Bilirubin 0.5 mg/dl (0.2-1.3); Triglycerides 149 mg/dl (10-149); eGFR > 60.00
--- NOTE | 2024-12-25 07:34 | W.PN.PUL3 ---
Today's Communication / Plan
-
- Pulmonary team will sign off, please call as needed
- Recommend updating POLST form before discharge from the hospital, reflecting patient's goals of care
Assessment
-
79-year-old woman with past medical history noted. Unfortunately readmitted shortly after discharge for increased shortness of breath, hypoxemia and lethargy. Found to be with decompensated hypercapnic respiratory failure. Placed on BiPAP. She
failed due to progressive lethargy. Intubated 12/22/2024.
#1. Acute on chronic hypercapnic respiratory failure (recurrent)-decompensation likely triggered by influenza B
- Admission [facility] 7.. Failed BiPAP therapy-since admission worsening hypercapnia, worsening mental status, require emergent intubation 2024, extubated 12/23. Patient declines BIPAP
- Baseline compensated hypercapnia. Steady state pCO2 around 60'-70's and serum Bicarb mid 30's. Suspect underlying obstructive sleep apnea and obesity hypoventilation syndrome playing a major role in her chronic hyper-capnea with intermittent acute
worsening, further exacerbated by concomitant COPD
- CXR without infiltrates
- Continue Tamiflu
- Patient had hospitalization in July 2024 as well for hypercapnic respiratory failure.
#3. H/o COPD, chronic O2 dependence
- Not in exacerbation
- Currently on DuoNeb and budesonide
- Takes Anoro at home, needs to be on Tripple therapy at discharge, LAMA/LABA/ICS
#4. Morbid Obesity with h/o CHRISTIANO with suspected Obesity hypoventilation syndrome.
-Patient reportedly not using PAP therapy at the nursing facility, and declines its use in hospital
-Prognosis is poor without PAP therapy.
Goals of care 12/25: I met with patient this morning and we went over her prior episodes of respiratory failure requiring BiPAP and at times intubation and mechanical ventilation. Patient very clearly told me that she does not want to take BiPAP
and if she develops CO2 retention and develops change in her mental status, she would not want to be intubated. I explained that without positive airway pressure therapy she can develop worsening retention of CO2 which can be fatal. Patient was
awake, alert and oriented and opted not to proceed with noninvasive or invasive positive pressure ventilation.
Conditions present prior admission:
-Atrial flutter status post ANIKET/cardioversion 12/21/2024
-History of atrial fibrillation on Eliquis
-Type 2 diabetes
-Hypertension
-Morbid obesity
-Ambulatory dysfunction-bedbound at the detention
-COPD on 2 L nasal cannula
-History of non-ST elevation myocardial infarction.
-Chronic right hemidiaphragm elevation
-Chronic hypercapnic respiratory failure-likely secondary to possibly obesity hypoventilation/COPD-intolerant to BiPAP.
'Prior discussion with daughter with Dr. Beach-DNR status was instituted. Patient does not want to use CPAP/BiPAP. Poor prognosis going forward-if decompensates focus on comfort.'
Total time spent on this consultation/encounter __52__ minutes which includes review of history, physical exam, medications, laboratory data, personal review of imaging, extensive review of outpatient records, discussion with care team and
respiratory therapy.
Subjective Data
-
Date of Service:
Date of Service: December 25, 2024
Subjective:
Patient comfortably lying in bed, on nasal cannula, awake, alert without any respiratory distress.
Review of Systems
Genitourinary: Other (No new respiratory symptoms reported today.)
Objective Data
Data Reviewed
Vital Signs / I&O / Oxygen:
Vital Signs
Temp Pulse Resp BP Pulse Ox
97.9 F 67 21 118/62 95
12/25/24 02:34 12/25/24 02:34 12/25/24 02:34 12/25/24 02:34 12/25/24 02:34
Intake and Output
12/24/24 12/25/24 12/26/24
06:59 06:59 06:59
Intake Total 531.9 / 538.1 1635.4 / 1635.4
Output Total 615 / 615 930 / 930
Balance -83.1 / -76.9 705.4 / 705.4
SaO2 [A/C] 100
SaO2 95
Nasal Cannula flow liters per 3
minute
Physical Exam
General: Comfortable
HEENT: Normocephalic
Cardiovascular: S1-S2
Respiratory: Clear and Non-Labored Respirations
GI: Soft and Non Distended
Neurology: Awake and Alert
Skin: Warm
Labs/Micro/Reports
Lab Data
12/25/24 04:05
12/25/24 04:05
Laboratory Results
12/24/24
08:57
pH 7.36
pCO2 62 H
pO2 78 L
HCO3 35.0 H
O2 Delivery Level
Microbiology
12/22/24 21:43 Nose Nasal Screen MRSA (PCR) - Final
MRSA not detected - performed by PCR methodology.
12/22/24 04:02 Nasal Swab Influenza Types A & B ([facility]VIDSON) - Final
Influenza B Positive, NAAT
[2024-12-25] MEDS: DUONEB 3 ML INH ×2 (07:39→11:03)
[2024-12-25] MEDS: PULMICORT 0.5 MG INH (07:40)
[2024-12-25 07:48] VITALS: BP 143/101
[2024-12-25 08:12] LABS: Glucose - Point of Care 102 mg/dl (70-99)
[2024-12-25] MEDS: NOVOLOG FLEXPEN-HIGH RESISTANCE SC ×4 (08:45→17:30)
[2024-12-25] MEDS: LOPRESSOR 25 MG PO (08:48)
[2024-12-25] MEDS: PROTONIX 40 MG PO (08:48)
[2024-12-25] MEDS: LASIX 40 MG PO (08:49)
[2024-12-25] MEDS: ELIQUIS 5 MG PO (08:49)
[2024-12-25] MEDS: TAMIFLU 30 MG PO (08:49)
[2024-12-25] MEDS: ZOLOFT 50 MG PO (08:49)
[2024-12-25] MEDS: LOW STRENGTH ASPIRIN 81 MG PO (08:50)
[2024-12-25] MEDS: MIRALAX 17 GRAMS PO (08:50)
[2024-12-25] MEDS: DESENEX/MITRAZOL/ZEASORB 1 APPLIC TOPICAL ×2 (08:56→17:28)
[2024-12-25] MEDS: KCL ELIXIR 40 MEQ PO ×2 (09:02→12:11)
[2024-12-25 11:23] VITALS: BP 108/71
[2024-12-25 11:35] LABS: Glucose - Point of Care 114 mg/dl (70-99)
--- NOTE | 2024-12-25 13:08 | W.PN.HOSP.TC ---
Addendum entered and electronically signed by Patel Montelongo MD 12/25/24 14:48:
[id number]
Original Note:
Today's Communication/Plan
-
- Duonebs
�Discharged on Trelegy for LABA/LAMA/ICS
-Tamiflu x 9 more days
-Switch To Trelegy
- Eliquis
-F/u PCP outpatient, cardiology
Assessment / Plan
Assessment / Plan
A/P: Patient is an 79y F with PMH significant for COPD, chronic hypoxemic respiratory failure on home O2 and recent admission for A-Flutter requiring ANIKET / DCCV on 12/21 who presents to ED c/o SOB.
Influenza B
Pneumonia (viral +/- bacterial component)
Acute on Chronic Hypoxemic and Hypercapnic Respiratory Failure secondary to the above, required mechanical intubation
COPD exacerbation
- Failed BiPAP trial, intubated on 12/22; extubated 12/23
-Extubated on precedex
-Refusing bipap, understands high risk of mortality; Daughter understands as per director long term care. now DNR
- Tamiflu�complete 10-day course
� Discontinue antibiotics, no obvious bacterial infection -remains stable
- Wean O2 support back to usual 2-3 lpm as able.
- DC iv steroids
- Duonebs
�Discharged on trilogy for LABA/LAMA/ICS
Paroxysmal A-Fib / Flutter
s/p ANIKET / DCCV 12/21/24
- Stable. Remains in sinus with PACs at present.
- Continue current med regimen including Eliquis for stroke risk reduction.
�Follow cardiology outpatient
Hypernatremia
-most likely hypovolemia related
�Improved with holding diuretics
� Resume Lasix on discharge
#Hypokalemia
� Monitor and replete
ASCVD
Chronic HFpEF
- Stable. Continue usual diuretic regimen.
- Follow I/Os, daily weights, etc.
- Continue ASA, statin, etc.
DM-II
- Stable. Continue basal insulin + SSI as needed.
CHRISTIANO
COPD
- Treat acute respiratory decompensation as noted above.
- Patient typically intolerant of PAP therapy - see above
- Continue inhaled medications upon dc
DVT Prophylaxis: On Eliquis
Code Status: DNR
Prognosis - Poor
Goals of care: Had extensive conversations with multiple teams and patient regarding goals of care. Patient adamantly refuses intubation and if patient becomes somnolent or something similar to this instance again, patient would like to pass in
peace.
More than 30 minutes spent in discharge including
Final examination of the patient
Summarizing hospital stay
Instructions for continuing care to all relevant caregivers
Preparation of discharge records, prescriptions, and referral forms
Total time spent (in minutes): 37
Anticipated Discharge: Today
Subjective/Interval History
-
Date of Service: December 25, 2024
Back on 3 L, alert oriented x 3. Acknowledges not wanting to be intubated again and if she start decompensating to let her pass.
Objective Data
-
Labs:
Laboratory Results
12/25/24
04:05
WBC 10.7
Hgb 10.0 L
Hct 31.0 L
Plt Count 264
Sodium 143
Potassium 3.1 L
Chloride 100
Carbon Dioxide 35 H
BUN 45 H
Creatinine 0.9
Glucose 120 H
Calcium 8.7
Total Bilirubin 0.5
AST 21
ALT 22
Alkaline Phosphatase 51
Vital Signs:
Vital Signs
Temp Pulse Resp BP Pulse Ox
97.5 F 75 20 108/71 99
12/25/24 11:23 12/25/24 11:23 12/25/24 11:23 12/25/24 11:23 12/25/24 11:23
I&O
12/24/24 12/25/24 12/26/24
06:59 06:59 06:59
Intake Total 531.9 / 538.1 1635.4 / 1635.4
Output Total 615 / 615 930 / 930
Balance -83.1 / -76.9 705.4 / 705.4
Review of Systems
-
History Source: Patient
All other systems: Not reviewed unless documented
Physical Exam
-
General: No Apparent Distress
HEENT: Normocephalic and Atraumatic
Respiratory: Negative Wheezes
Cardiac: Regular Rhythm and S1/S2
GI: Soft
Genito-urinary: No Costovertebral Tender
Neuro: AO x 3
Psych: Calm
Data Reviewed
-
Diagnostic Radiology: Report Reviewed by me
CT Scan: Report Reviewed by me
Labs: Labs Reviewed by me
--- NOTE | 2024-12-25 13:15 | W.DS.TRANS ---
DC Summary - Cyber Security Specialist
-
Discharge Instructions:
Discharge Diagnosis/Procedures Influenza B
Pneumonia (viral +/- bacterial component)
Acute on Chronic Hypoxemic and Hypercapnic
Respiratory Failure secondary to the above,
required mechanical intubation
COPD exacerbation
Diet Low Cholesterol,Low Fat,Diabetic, Carb
Controlled
Activity As tolerated
Driving Restrictions No driving
Blood Work cbc and cmp outpatient in 3-5 days
Instructions:
Stand-Alone Forms:
Changes to Home Medications: Yes
Discharge Medications:
DC Medications w/original date entered in [employer]
acetaminophen 325 mg tablet 650 mg PO Q6HPRN PRN mild pain 06/05/24
albuterol sulfate 90 mcg/actuation aerosol inhaler 2 puff inhalation R Q6HPRN PRN sob/wheezing 06/05/24
apixaban 5 mg tablet 5 mg PO BID Blood Clot Prevention/Tx 06/05/24
aspirin 81 mg chewable tablet 81 mg PO DAILY Blood Clot Prevention/Tx 06/05/24
atorvastatin 40 mg tablet 40 mg PO HS High Cholesterol 06/05/24
docusate sodium 100 mg capsule 200 mg PO HS Constipation 06/05/24
ferrous sulfate 325 mg (65 mg iron) tablet 325 mg PO QPM Supplement 06/05/24
furosemide 40 mg tablet 40 mg PO DAILY Fluid Retention/Swelling 06/05/24
insulin glargine 100 unit/mL (3 mL) subcutaneous pen 10 unit SC HS Diabetes 06/05/24
ipratropium 0.5 mg-albuterol 3 mg (2.5 mg base)/3 mL nebulization soln 3 ml inhalation R Q6HPRN PRN sob/wheezing 06/05/24
metoprolol tartrate 25 mg tablet 25 mg PO BID Blood Pressure 06/05/24
pantoprazole 40 mg tablet,delayed release 40 mg PO BID Gastrointestinal Issue 06/05/24
potassium chloride 10 mEq tablet,extended release(part/cryst) 10 meq PO DAILY Electrolyte Repletion 06/05/24
therapeutic multivitamin 1 tab PO DAILY Supplement 06/05/24
magnesium hydroxide 400 mg/5 mL oral suspension (Milk of Magnesia) 2,400 mg PO DAILYPRN PRN constipation 07/20/24
polyethylene glycol 3350 17 gram oral powder packet (Miralax) 17 g PO DAILYPRN PRN constipation 07/20/24
melatonin 3 mg tablet 3 mg PO HS Sleep 12/20/24
metformin 1,000 mg tablet 1,000 mg PO BID Diabetes 12/20/24
nystatin 100,000 unit/gram topical powder 1 applic topical TID Infection 12/20/24
sertraline 50 mg tablet 50 mg PO DAILY Depression 12/20/24
zinc oxide 1 ea topical BID to B/L buttocks 12/22/24
zinc oxide 1 ea topical BIDPRN PRN incontinence care 12/22/24
fluticasone fur. 200 mcg-umeclid 62.5 mcg-vilant 25 mcg inhalat.powder (Trelegy Ellipta) 1 inh inhalation DAILY #60 ea 12/25/24
oseltamivir 30 mg capsule 30 mg PO BID 9 days #18 caps 12/25/24
Home Medication Changes
fluticasone fur. 200 mcg-umeclid 62.5 mcg-vilant 25 mcg inhalat.powder (Trelegy Ellipta) 1 inh inhalation DAILY #60 ea 12/25/24
oseltamivir 30 mg capsule 30 mg PO BID 9 days #18 caps 12/25/24
Pending Results: No
--- NOTE | 2024-12-25 14:08 | CM ---
Patient seen at bedside
LTC resident at [facility]
IMM explained & signed. In chart
spoke with [facility] liaison regarding dc today
hospitalist discussed POLST
[facility] states they will do POLST
she states she can return has an isolation bed
+influenza
referral in [facility]
Spoke with daughter Lilly & updated
PLAN: [facility]
Report #: [phone]
Fax #: [phone]
transportation forms on chart
[2024-12-25 15:38] VITALS: BP 130/60
[2024-12-25] MEDS: DUONEB INH (16:12)
[2024-12-25 16:51] LABS: Glucose - Point of Care 210 mg/dl (70-99)
== END 2024-12-25 18:21 | DRG 871 ==
LOC: 3 WEST ACU 05:55
PROVIDERS: Nurse Practitioner Primary Care; Physician Assistant; ADMITTING PHYSICIAN Hospitalist; ATTENDING PHYSICIAN Internal Medicine; CONSULT PHYSICIAN Internal Medicine Critical Care Medicine; EMERGENCY PHYSICIAN Emergency Medicine; FAMILY PHYSICIAN Internal Medicine
PROC: 5A1945Z Respiratory Ventilation, 24-96 Consecutive Hours (ICD-10-PCS; 2024-12-22)
DX: A41.9 Sepsis, unspecified organism (principal); G93.41 Metabolic encephalopathy; I50.33 Acute on chronic diastolic (congestive) heart failure; J10.08 Influenza due to other identified influenza virus with other specified pneumonia; J96.22 Acute and chronic respiratory failure with hypercapnia; J18.9 Pneumonia, unspecified organism; J12.9 Viral pneumonia, unspecified; J96.21 Acute and chronic respiratory failure with hypoxia; J44.0 Chronic obstructive pulmonary disease with (acute) lower respiratory infection; E87.29 Other acidosis; I47.10 Supraventricular tachycardia, unspecified; J44.1 Chronic obstructive pulmonary disease with (acute) exacerbation; Z11.52 Encounter for screening for COVID-19; Z66 Do not resuscitate; I48.0 Paroxysmal atrial fibrillation; Z79.01 Long term (current) use of anticoagulants; E87.6 Hypokalemia; E66.01 Morbid (severe) obesity due to excess calories; E11.65 Type 2 diabetes mellitus with hyperglycemia; E78.5 Hyperlipidemia, unspecified; I11.0 Hypertensive heart disease with heart failure; Z74.01 Bed confinement status; Z79.82 Long term (current) use of aspirin; Z79.899 Other long term (current) drug therapy; Z99.81 Dependence on supplemental oxygen; Z68.34 Body mass index [BMI] 34.0-34.9, adult
CPT/HCPCS: 36600; 70450; 71045; 80053; 81003; 82805; 82962; 83605; 83735; 83880; 84478; 84484; 85025; 85027; 87502; 87641; 87811; 93005; 94002; 94003; 94640; 94660; 96374; 99285